=== PATIENT | male | born 1950 | race Caucasian/White ===

== ENCOUNTER → 2016-11-08 | Outpatient (CLI) | payer BC ==
[~2016-11-08] MED LIST: ASPI-390 PO; ATOR-22 PO; ATOR-24 PO; BUPR-79 PO; CYAN500T13 PO; ERGO500037 PO; FLUO40CA8 PO; GLIM4TAB PO; INSDGI SC; LEVO100T7 PO; LOSA100T26 PO; METF-384 PO; METF850T9 PO; NVLG SC; NVLGI7030 SC; PRAM1TAB PO; PROC1TAB5 PO
[2016-11-08 18:17] LABS: HEMATOCRIT 33.3 % (42-52)
[2016-11-08 18:18] LABS: CHOLESTEROL/HDL RATIO 4.4; THYROID STIMULATING HORMONE 2.12 uIu/ml (0.300-4.500)
[2016-11-08 18:23] LABS: RATIO 39.2 mcg/mg (0-30.0)
[2016-11-09 06:13] LABS: ESTIMATED AVERAGE GLUCOSE 140 mg/dl; HA1C FLAG Normal (Normal)
== END | disposition home or self-care (01) ==
LOC: C.LABMFLN 15:50
PROVIDERS: ATTEND Family Medicine
DX: E78.00 Pure hypercholesterolemia, unspecified (principal); E55.9 Vitamin D deficiency, unspecified; E11.65 Type 2 diabetes mellitus with hyperglycemia; D64.9 Anemia, unspecified

== ENCOUNTER → 2016-11-16 | Day surgery (SDC) | payer BC ==
[2016-11-10 10:08] VITALS: Ht 185.4 cm; Wt 118.2 kg
[~2016-11-16] VITALS: Ht 185.4 cm; Wt 118.2 kg
[~2016-11-16] MED LIST changes: +500ML BSS 0.3ML EPI 1:1000PF IRRIG ONE; +ACETAMINOPHEN 325 MG TAB PO PRN; +AMVISC PLUS 0.8ML SYRINGE INT OCU ONE; -ASPI-390 PO; -ATOR-24 PO; +BSS FLUSH ONE; +EpINEphrine INJ 1MG/ML AMP 1 MG/ML AMP ONE; +FENTANYL CITRATE INJ 50 MCG/1 ML 2 ML VIAL IV PRN; -GLIM4TAB PO; +LACTATED RINGER'S 1000ML 1,000 ML IV PRN; +LACTATED RINGER'S 1000ML 500 ML IV SCH; +LIDOCAINE 3.5% OPH GEL PER APPLICATION CHARGE ONE; +LIDOCAINE HCL 1% MPF 2 ML VIAL ONE; -METF850T9 PO; +MIDAZOLAM HCL 1 MG/ML 2ML VIAL ONE; +OCUCOAT 1 ML SOLN IO ONE; +ONDANSETRON INJ 2 MG/ML 2 ML VIAL IV PRN; +POVIDONE-IODINE OP SOLN 30 ML BTL ONE; -PROC1TAB5 PO; +PROPARACAINE 0.5% OP SOLN PER DROP CHARGE OPR SCH; +TOBRAMYCIN/DEXAMETHASONE OPH OINT PER APPLN CHARGE ONE
[2016-11-16] MEDS: PHENYLEPHRINE HCL 2.5% OP SOLN PER DROP CHARGE OPR SCH ×2 (06:36→06:42)
[2016-11-16] MEDS: TROPICAMIDE 1% OP SOLN PER DROP CHARGE OPR SCH ×2 (06:37→06:42)
[2016-11-16] MEDS: CYCLOPENTOLATE HCL 1% OP SOLN PER DROP CHARGE OPR SCH ×2 (06:38→06:43)
[2016-11-16] MEDS: KETOROLAC 0.5% OP SOLN PER DROP CHARGE OPR SCH ×2 (06:39→06:44)
[2016-11-16] MEDS: GATIFLOXACIN OP SOLN PER DROP CHARGE OPR SCH ×2 (06:40→06:53)
--- NOTE | 2016-11-16 07:03 | History & Physical Bridge - [place] ---
H&P Re-Evaluation Bridge Note: I have examined the patient, reviewed the History & Physical and in the interval since the performance of the History & Physical I have noted the following changes of clinical significance: Diagnosis: Right Cataract Procedure: Right Cataract Removal with Lens Implant No changes noted
[2016-11-16 07:31] VITALS: TEMP 36.8
[2016-11-16 07:46] VITALS: BP 144/79; PULSE 71; O2SAT 95
--- NOTE | 2016-11-16 07:54 | Anesthesia Progress Nt - [facility] ---
Anesthesia Post Op Note Date & Time Nov 16, 2016 at 07:54 Vital Signs Pain Intensity: 0 Vital Signs Past 12 Hours Date Time Temp Pulse Resp B/P Pulse Ox O2 Delivery O2 Flow Rate FiO2 11/16/16 07:46 71 16 144/79 95 Room Air 11/16/16 07:31 36.8 78 16 152/83 99 Room Air 11/16/16 06:29 36.9 71 18 157/89 99 Room Air Notes Mental Status: alert / awake / arousable, participated in evaluation Nausea / Vomiting: adequately controlled Pain: adequately controlled Airway Patency, RR, SpO2: stable & adequate BP & HR: stable & adequate Hydration State: stable & adequate Anesthetic Complications: no major complications apparent Pt doing well.
--- NOTE | 2016-11-16 07:55 | Discharge Instructions-SurgCtr ---
Discharge Instructions Visit Reason for Visit: Cataract Right Eye Discharge Discharge Diagnosis / Problem: cataract Discharge Goals Goal(s): Improve function Medications Stopped Medications Name(s): Metformin stopped Tuesday Activity Recommendations Activity Limitations: per Instructions/Follow-up section ACTIVITY RECOMMENDATIONS: * No strenuous lifting, jogging or running for 4 days * No swimming or yard work for 1 week. * Limited bending is permitted, such as putting on shoes. RETURN TO SCHOOL/WORK: No work until seen by physician in office. MEDICATIONS: Resume previous medications unless instructed otherwise by your surgeon. This includes eye drops for glaucoma. Zymaxid/Gatifloxacin (young cap) - one drop every 2 hours until bedtime Nevanac/Ilevro/Prolensa/Ketorolac (choi cap) - one drop every 4 hours until bedtime Prednisolone (white/pink cap, SHAKE WELL) - one drop every 2 hours until bedtime Starting tomorrow - all 3 drops every 4 hours until seen in the office Optive drops - as needed for discomfort SPECIAL CARE INSTRUCTIONS: * Wear eyeshield when sleeping, for four nights. * You may wear your own glasses or sunglasses while awake. * You may read or watch TV * You may shower and wash your face, but be gentle around the eye and pat dry. * Blurry vision and mild irritation are normal. * Call office if pain is more severe or vision becomes dark at . FOLLOW UP VISIT: Follow-up with Dr Goddard tomorrow. Anesthesia . Post Anesthesia Instructions: If you have had General Anesthesia or IV Sedation: * Do not drive today. * Resume driving when surgeon permits. * Do not make important decisions or sign legal documents today. * Call surgeon for: 1. Temperature elevations greater than 101 degrees F. 2. Uncontrollable pain. 3. Excessive bleeding. 4. Persistent nausea and vomiting. 5. Medication intolerance (nausea, vomiting or rash). * For nausea and vomiting use only clear liquids such as: tea, soda, bouillon until nausea subsides, then gradually increase diet as tolerated. * If you have any concerns or questions, call your surgeon's office. If physician is unavailable and it is an emergency, call 911 or go to the nearest emergency room. . Diet Recommendations Home Diet: resume previous diet Procedures Procedures Performed: Right Eye Cataract Phacoemulsification With Intraocular Lens Implant Pending Studies Studies pending at discharge: no Medical Emergencies . Who to Call and When: Medical Emergencies: If at any time you feel your situation is an emergency, please call 911 immediately. . Non-Emergent Contact Non-Emergency issues call your: Dye Lab Technician . . "Provider Documentation" section prepared by Armen Goddard.
--- NOTE | 2016-11-16 07:55 | [facility] Operative Report ---
Operative Report 1. PREOPERATIVE DIAGNOSIS: Cataract of the right eye. 2. POSTOPERATIVE DIAGNOSIS: Same. 3. PROCEDURE: Phacoemulsification with intraocular lens implantation of the right eye. SURGEON: Dr. Armen Goddard. ANESTHESIA: Topical Lidocaine gel, 1% Non- Preserved intracameral Lidocaine, and monitored intravenous sedation. INDICATIONS FOR THE PROCEDURE: The patient is a 66 - year-old male with a history of cataract of the right eye causing significant visual impairment. The details of the proposed procedure were explained to the patient who asked appropriate questions and following discussion of all risks, benefits and alternatives agreed to have the procedure done. 4. OPERATION AND FINDINGS: DESCRIPTION OF PROCEDURE: After informed consent was obtained, the patient was brought to the Operating Room at the [facility]. The patient was placed in a supine position and then the right eye was prepped and draped in the usual sterile fashion for intraocular surgery. A drop of topical Lidocaine gel was placed in the operative eye. A wire lid speculum was then placed in the fornices. A corneal paracentesis was then created temporally. The Non-Preserved Lidocaine was then instilled into the anterior chamber. The anterior chamber was then pressurized with viscoelastic. A 2.0 mm clear corneal incision was then created temporally. A cystotome was inserted into the anterior chamber and used to create a tear in the anterior lens capsule. This capsular tear was then used to create a small flap and the flap was dragged in a counterclockwise direction in order to create a continuous curvilinear capsulorrhexis. Hydrodissection was accomplished with balanced salt solution. Phacoemulsification of the lens nucleus was then performed in a standard [id number]-[id number] technique. The phaco time was 6 seconds with an average power of 12 %. The remaining cortical material was removed using irrigation aspiration. The capsular bag was then filled with viscoelastic. A Bausch [employer] Lomb MX60 +19.0 diopters lens was then loaded into the injector and injected into the capsular bag. The remaining viscoelastic was removed with the irrigation aspiration handpiece. The wound was hydrated and then checked and found to be watertight. The intraocular pressure was checked and found to be adequate. The wire lid speculum was removed and the patient's face was cleaned and dried. TobraDex ointment was placed in the inferior fornix. The patient was discharged to the Recovery Room having tolerated the procedure well. There were no complications. The patient will be seen tomorrow in the office for follow-up. I attest to the content of the Intraoperative Record and any orders documented therein. Any exceptions are noted below.
== END | disposition home or self-care (01) ==
LOC: X.SURG 06:15
PROVIDERS: ATTEND Ophthalmology
DX: H26.9 Unspecified cataract (principal); H54.7 Unspecified visual loss; E53.8 Deficiency of other specified B group vitamins; D64.9 Anemia, unspecified; I10 Essential (primary) hypertension; F41.9 Anxiety disorder, unspecified; M19.90 Unspecified osteoarthritis, unspecified site; G56.01 Carpal tunnel syndrome, right upper limb; F32.9 Major depressive disorder, single episode, unspecified; E11.9 Type 2 diabetes mellitus without complications; E78.00 Pure hypercholesterolemia, unspecified; M51.26 Other intervertebral disc displacement, lumbar region; E66.9 Obesity, unspecified; G25.81 Restless legs syndrome; E55.9 Vitamin D deficiency, unspecified

== ENCOUNTER → 2016-12-07 | Day surgery (SDC) | payer BC, OTHER ==
[2016-11-24 09:35] VITALS: Ht 185.4 cm; Wt 118.2 kg
[~2016-12-07] VITALS: Ht 185.4 cm; Wt 118.2 kg
[~2016-12-07] MED LIST changes: +ATROPINE SULFATE 0.1 MG/ML 5ML SYR IV PRN; +EpHEDrine SULFATE INJ 50 MG/ML AMP IV PRN; +LABETALOL HCL IV 5 MG/ML 20ML IV PRN; -LACTATED RINGER'S 1000ML 1,000 ML IV PRN; -NVLGI7030 SC; +PROPARACAINE 0.5% OP SOLN PER DROP CHARGE OPL SCH; -PROPARACAINE 0.5% OP SOLN PER DROP CHARGE OPR SCH
[2016-12-07] MEDS: PHENYLEPHRINE HCL 2.5% OP SOLN PER DROP CHARGE OPL SCH ×2 (06:32→06:37)
[2016-12-07] MEDS: TROPICAMIDE 1% OP SOLN PER DROP CHARGE OPL SCH ×2 (06:33→06:38)
[2016-12-07] MEDS: CYCLOPENTOLATE HCL 1% OP SOLN PER DROP CHARGE OPL SCH ×2 (06:34→06:39)
[2016-12-07] MEDS: KETOROLAC 0.5% OP SOLN PER DROP CHARGE OPL SCH ×2 (06:35→06:40)
[2016-12-07] MEDS: GATIFLOXACIN OP SOLN PER DROP CHARGE OPL SCH ×2 (06:36→06:46)
--- NOTE | 2016-12-07 06:59 | History & Physical Bridge - [place] ---
H&P Re-Evaluation Bridge Note: I have examined the patient, reviewed the History & Physical and in the interval since the performance of the History & Physical I have noted the following changes of clinical significance: Diagnosis: Left Cataract Procedure: Left Cataract Removal with Lens Implant No changes noted
[2016-12-07 07:23] VITALS: TEMP 36.8
--- NOTE | 2016-12-07 07:23 | [facility] Operative Report ---
Operative Report 1. PREOPERATIVE DIAGNOSIS: Cataract of the left eye. 2. POSTOPERATIVE DIAGNOSIS: Same. 3. PROCEDURE: Phacoemulsification with intraocular lens implantation of the left eye. SURGEON: Dr. Armen Goddard. ANESTHESIA: Topical Lidocaine gel, 1% Non- Preserved intracameral Lidocaine, and monitored intravenous sedation. INDICATIONS FOR THE PROCEDURE: The patient is a 66 - year-old male with a history of cataract of the left eye causing significant visual impairment. The details of the proposed procedure were explained to the patient who asked appropriate questions and following discussion of all risks, benefits and alternatives agreed to have the procedure done. 4. OPERATION AND FINDINGS: DESCRIPTION OF PROCEDURE: After informed consent was obtained, the patient was brought to the Operating Room at the [facility]. The patient was placed in a supine position and then the left eye was prepped and draped in the usual sterile fashion for intraocular surgery. A drop of topical Lidocaine gel was placed in the operative eye. A wire lid speculum was then placed in the fornices. A corneal paracentesis was then created temporally. The Non-Preserved Lidocaine was then instilled into the anterior chamber. The anterior chamber was then pressurized with viscoelastic. A 2.0 mm clear corneal incision was then created temporally. A cystotome was inserted into the anterior chamber and used to create a tear in the anterior lens capsule. This capsular tear was then used to create a small flap and the flap was dragged in a counterclockwise direction in order to create a continuous curvilinear capsulorrhexis. Hydrodissection was accomplished with balanced salt solution. Phacoemulsification of the lens nucleus was then performed in a standard bujzkr-[id number]-drecpnq technique. The phaco time was 35 seconds with an average power of 16 %. The remaining cortical material was removed using irrigation aspiration. The capsular bag was then filled with viscoelastic. A Bausch & Lomb MX60 +20.0 diopters lens was then loaded into the injector and injected into the capsular bag. The remaining viscoelastic was removed with the irrigation aspiration handpiece. The wound was hydrated and then checked and found to be watertight. The intraocular pressure was checked and found to be adequate. The wire lid speculum was removed and the patient's face was cleaned and dried. TobraDex ointment was placed in the inferior fornix. The patient was discharged to the Recovery Room having tolerated the procedure well. There were no complications. The patient will be seen tomorrow in the office for follow-up. I attest to the content of the Intraoperative Record and any orders documented therein. Any exceptions are noted below.
--- NOTE | 2016-12-07 07:23 | Discharge Instructions-SurgCtr ---
Discharge Instructions Visit Reason for Visit: Cataract Left Eye Discharge Discharge Diagnosis / Problem: cataract Discharge Goals Goal(s): Improve function Medications Stopped Medications Name(s): Metformin. Last dose 12/04/16 Activity Recommendations Activity Limitations: per Instructions/Follow-up section Anesthesia . Post Anesthesia Instructions: If you have had General Anesthesia or IV Sedation: * Do not drive today. * Resume driving when surgeon permits. * Do not make important decisions or sign legal documents today. * Call surgeon for: 1. Temperature elevations greater than 101 degrees F. 2. Uncontrollable pain. 3. Excessive bleeding. 4. Persistent nausea and vomiting. 5. Medication intolerance (nausea, vomiting or rash). * For nausea and vomiting use only clear liquids such as: tea, soda, bouillon until nausea subsides, then gradually increase diet as tolerated. * If you have any concerns or questions, call your surgeon's office. If physician is unavailable and it is an emergency, call 911 or go to the nearest emergency room. . Instructions / Follow-Up Instructions / Follow-Up ACTIVITY RECOMMENDATIONS: * No strenuous lifting, jogging or running for 4 days * No swimming or yard work for 1 week. * Limited bending is permitted, such as putting on shoes. RETURN TO SCHOOL/WORK: No work until seen by physician in office. MEDICATIONS: Resume previous medications unless instructed otherwise by your surgeon. This includes eye drops for glaucoma. Zymaxid/Gatifloxacin (young cap) - one drop every 2 hours until bedtime Nevanac/Ilevro/Prolensa/Ketorolac (choi cap) - one drop every 4 hours until bedtime Prednisolone (white/pink cap, SHAKE WELL) - one drop every 2 hours until bedtime Starting tomorrow - all 3 drops every 4 hours until seen in the office Optive drops - as needed for discomfort SPECIAL CARE INSTRUCTIONS: * Wear eyeshield when sleeping, for four nights. * You may wear your own glasses or sunglasses while awake. * You may read or watch TV * You may shower and wash your face, but be gentle around the eye and pat dry. * Blurry vision and mild irritation are normal. * Call office if pain is more severe or vision becomes dark at . FOLLOW UP VISIT: Follow-up with Dr Goddard tomorrow. Diet Recommendations Home Diet: resume previous diet Procedures Procedures Performed: Left Cataract Phacoemulsification With Intraocular Lens Implant Pending Studies Studies pending at discharge: no Medical Emergencies . Who to Call and When: Medical Emergencies: If at any time you feel your situation is an emergency, please call 911 immediately. . Non-Emergent Contact Non-Emergency issues call your: Small Craft Operator . . "Provider Documentation" section prepared by Armen Goddard.
--- NOTE | 2016-12-07 07:36 | Anesthesiology Progress Note ---
Anesthesia Post Op Note Date & Time Dec 07, 2016 at 07:36 Vital Signs Pain Intensity: 0 Vital Signs Past 12 Hours Date Time Temp Pulse Resp B/P Pulse Ox O2 Delivery O2 Flow Rate FiO2 12/07/16 07:23 36.8 64 20 132/73 97 Room Air 12/07/16 06:26 36.8 62 18 177/91 98 Room Air Notes Mental Status: alert / awake / arousable, participated in evaluation Pt Amnestic to Procedure: Yes Nausea / Vomiting: adequately controlled Pain: adequately controlled Airway Patency, RR, SpO2: stable & adequate BP & HR: stable & adequate Hydration State: stable & adequate Anesthetic Complications: no major complications apparent
[2016-12-07 07:40] VITALS: BP 132/78; PULSE 58; O2SAT 99
== END | disposition home or self-care (01) ==
LOC: X.SURG 06:07
PROVIDERS: ATTEND Ophthalmology
DX: H26.9 Unspecified cataract (principal); H54.7 Unspecified visual loss; I10 Essential (primary) hypertension; D64.9 Anemia, unspecified; F41.9 Anxiety disorder, unspecified; M19.90 Unspecified osteoarthritis, unspecified site; M51.26 Other intervertebral disc displacement, lumbar region; E53.8 Deficiency of other specified B group vitamins; E55.9 Vitamin D deficiency, unspecified; F32.9 Major depressive disorder, single episode, unspecified; E11.9 Type 2 diabetes mellitus without complications; E66.9 Obesity, unspecified

== ENCOUNTER → 2016-12-29 | Outpatient (CLI) | payer BC ==
[~2016-12-29] MED LIST changes: -500ML BSS 0.3ML EPI 1:1000PF IRRIG ONE; -ACETAMINOPHEN 325 MG TAB PO PRN; -AMVISC PLUS 0.8ML SYRINGE INT OCU ONE; -ATROPINE SULFATE 0.1 MG/ML 5ML SYR IV PRN; -BSS FLUSH ONE; -EpHEDrine SULFATE INJ 50 MG/ML AMP IV PRN; -EpINEphrine INJ 1MG/ML AMP 1 MG/ML AMP ONE; -FENTANYL CITRATE INJ 50 MCG/1 ML 2 ML VIAL IV PRN; -LABETALOL HCL IV 5 MG/ML 20ML IV PRN; -LACTATED RINGER'S 1000ML 500 ML IV SCH; -LIDOCAINE 3.5% OPH GEL PER APPLICATION CHARGE ONE; -LIDOCAINE HCL 1% MPF 2 ML VIAL ONE; -MIDAZOLAM HCL 1 MG/ML 2ML VIAL ONE; -OCUCOAT 1 ML SOLN IO ONE; -ONDANSETRON INJ 2 MG/ML 2 ML VIAL IV PRN; -POVIDONE-IODINE OP SOLN 30 ML BTL ONE; -PROPARACAINE 0.5% OP SOLN PER DROP CHARGE OPL SCH; -TOBRAMYCIN/DEXAMETHASONE OPH OINT PER APPLN CHARGE ONE
[2016-12-29 15:32] LABS: URINE APPEARANCE CLEAR (CLEAR); URINE BILIRUBIN NEG (NEG); URINE COLOR YELLOW; URINE EPITHELIAL CELL AUTO 0-5 /lpf (0-5); URINE NITRITE NEG (NEG); URINE SPECIFIC GRAVITY 1.009 (1.000-1.030); UROBILINOGEN NEG (NEG)
[2016-12-29 15:52] LABS: MANUAL MICROSCOPIC REQUIRED? NO; REVIEW REQ? NO; SULFASALICYLIC ACID NEG (NEG)
[2016-12-29 15:59] LABS: BLOOD UREA NITROGEN 22 mg/dl (7-18); BUN/CREATININE RATIO 12.4 (10-20); C-REACTIVE PROTEIN 0.73 mg/dl (0-0.29); CALCIUM 8.8 mg/dl (8.5-10.1); CARBON DIOXIDE 27 mmol/L (21-32); CHLORIDE 104 mmol/L (98-107); GLUCOSE 143 mg/dl (70-99); POTASSIUM 3.6 mmol/L (3.5-5.1); SODIUM 140 mmol/L (136-145); URIC ACID 4.2 mg/dl (2.6-7.2); URINE PROTIEN/CREAT RATIO 0.8 (0-0.2); URINE TOTAL PROTEIN 30.3 mg/dl (0-11.9)
[2017-01-05 21:36] LABS: ALBUMIN 3.6 G/DL (3.8-4.8); ALBUMIN % 22.98 %; ALPHA-2-GLOBULIN % 13.67 %; BETA GLOBULIN % 20.05 %; CREATININE UR 48 MG/DL (20-370); FREE KAPPA 239.7 MG/L (3.3-19.4); FREE KAPPA/LAMBDA RATIO 3.47 (0.26-1.65); FREE LAMBDA 69.1 MG/L (5.7-26.3); TOTAL PROTEIN 7.5 G/DL (6.2-8.3)
== END | disposition home or self-care (01) ==
LOC: C.LAB1850 14:09
PROVIDERS: ATTEND Internal Medicine Nephrology
DX: N17.9 Acute kidney failure, unspecified (principal)

== ENCOUNTER → 2017-01-17 | Outpatient (CLI) | payer BC ==
[2017-01-17 07:50] LABS: PATIENT HEIGHT 68.6 cm
[2017-01-17 13:44] LABS: BLOOD UREA NITROGEN 24 mg/dl (7-18); BUN/CREATININE RATIO 14.8 (10-20); CALCIUM 9.2 mg/dl (8.5-10.1); CARBON DIOXIDE 26 mmol/L (21-32); CHLORIDE 106 mmol/L (98-107); GLUCOSE 129 mg/dl (70-99); POTASSIUM 3.3 mmol/L (3.5-5.1); SODIUM 140 mmol/L (136-145)
[2017-01-17 13:46] LABS: PHOSPHORUS 3.6 mg/dl (2.5-4.9)
[2017-01-17 13:52] LABS: ESTIMATED AVERAGE GLUCOSE 151 mg/dl; HA1C FLAG Normal (Normal)
[2017-01-17 13:53] LABS: BASO % 0.6 %; BASO ABS # 0.04 K/uL (0-0.2); COMPLETE YES; EOS % 5.1 %; HEMATOCRIT 33.4 % (42-52); IG% 0.3 %; LYMPH % 14.2 %; LYMPH ABS # 0.89 K/uL (1.2-3.4); MEAN CORPUSCULAR HEMOGLOBIN 28.2 pg (25-34); MEAN CORPUSCULAR HGB CONC 33.2 g/dl (32-36); MEAN PLATELET VOLUME 9.6 fL (7.4-10.4); MONO % 8.1 %; NEUT % 71.7 %; PLATELET COUNT 131 K/uL (130-400); RED BLOOD COUNT 3.93 M/uL (4.7-6.1); WHITE BLOOD COUNT 6.27 K/uL (4.8-10.8)
[2017-01-17 14:06] LABS: URINE TOTAL PROTEIN 41.4 mg/dl (0-11.9)
[2017-01-17 14:17] LABS: URINE TOTAL PROTEIN CALC 1117.8 mg/24 hr (0-149.1)
[2017-01-17 14:18] LABS: CREATININE 1.6 mg/dl (0.6-1.4)
[2017-01-20 03:52] LABS: ANTI-CENTROMERE AB <1.0 NEG AI (<1.0 NEG)
[2017-01-21 13:32] LABS: IGG SERUM 2790 H
== END | disposition home or self-care (01) ==
LOC: C.LABMFLN 07:44
PROVIDERS: ATTEND Internal Medicine Nephrology
DX: N17.9 Acute kidney failure, unspecified (principal); E11.9 Type 2 diabetes mellitus without complications

== ENCOUNTER → 2017-01-24 | Outpatient (CLI) | payer BC ==
[2017-01-24 17:52] LABS: URINE APPEARANCE CLEAR (CLEAR); URINE BILIRUBIN NEG (NEG); URINE COLOR YELLOW; URINE NITRITE NEG (NEG); URINE SPECIFIC GRAVITY 1.014 (1.000-1.030); UROBILINOGEN NEG (NEG)
[2017-01-24 17:53] LABS: BLOOD UREA NITROGEN 21 mg/dl (7-18); BUN/CREATININE RATIO 12.2 (10-20); CALCIUM 9.4 mg/dl (8.5-10.1); CARBON DIOXIDE 27 mmol/L (21-32); CHLORIDE 104 mmol/L (98-107); GLUCOSE 132 mg/dl (70-99); POTASSIUM 3.9 mmol/L (3.5-5.1); SODIUM 138 mmol/L (136-145)
[2017-01-24 18:00] LABS: MANUAL MICROSCOPIC REQUIRED? NO; REVIEW REQ? NO
[2017-01-24 18:04] LABS: URINE PROTIEN/CREAT RATIO 0.6 (0-0.2); URINE TOTAL PROTEIN 57.4 mg/dl (0-11.9)
== END | disposition home or self-care (01) ==
LOC: C.LABMFLN 14:51
PROVIDERS: ATTEND Internal Medicine Nephrology
DX: N17.9 Acute kidney failure, unspecified (principal)

== ENCOUNTER → 2017-01-27 | Outpatient (CLI) | payer BC ==
[~2017-01-27] MED LIST changes: -LOSA100T26 PO; +LOSA100T33 PO
== END | disposition home or self-care (01) ==
LOC: C.LABMFLN 07:40
PROVIDERS: ATTEND Internal Medicine Nephrology
DX: N28.9 Disorder of kidney and ureter, unspecified (principal); R79.9 Abnormal finding of blood chemistry, unspecified

== ENCOUNTER → 2017-01-28 | Outpatient (CLI) | payer BC ==
[2017-01-28 18:06] LABS: HEMATOCRIT 33.4 % (42-52); MEAN CELL VOLUME 84.3 fL (80-100); MEAN CORPUSCULAR HEMOGLOBIN 28.5 pg (25-34); MEAN CORPUSCULAR HGB CONC 33.8 g/dl (32-36); RED BLOOD COUNT 3.96 M/uL (4.7-6.1); WHITE BLOOD COUNT 5.82 K/uL (4.8-10.8)
[2017-01-28 18:47] LABS: MEAN PLATELET VOLUME 11.2 fL (7.4-10.4); PLATELET COUNT 49 K/uL (130-400)
[2017-01-28 18:50] LABS: ANISOCYTOSIS PRESENT; BASO % 0.9 %; BASO ABS # 0.05 K/uL (0-0.2); COMPLETE YES; EOS % 4.5 %; IG% 0.7 %; LYMPH % 18.6 %; LYMPH ABS # 1.08 K/uL (1.2-3.4); NEUT % 64.3 %; PLT ESTIMATE DECREASED
== END | disposition home or self-care (01) ==
LOC: C.LABMFLN 11:45
PROVIDERS: ATTEND Internal Medicine Nephrology
DX: D69.6 Thrombocytopenia, unspecified (principal)

== ENCOUNTER → 2017-03-08 | Outpatient (CLI) | payer BC ==
[2017-03-08 17:56] LABS: BASO % 0.5 %; BASO ABS # 0.03 K/uL (0-0.2); COMPLETE YES; HEMATOCRIT 34.1 % (42-52); IG% 0.3 %; LYMPH % 18.4 %; MEAN CELL VOLUME 86.8 fL (80-100); MEAN CORPUSCULAR HGB CONC 33.4 g/dl (32-36); MEAN PLATELET VOLUME 9.2 fL (7.4-10.4); MONO % 9.2 %; NEUT % 66.6 %; PLATELET COUNT 167 K/uL (130-400); RED BLOOD COUNT 3.93 M/uL (4.7-6.1); WHITE BLOOD COUNT 5.97 K/uL (4.8-10.8)
== END | disposition home or self-care (01) ==
LOC: C.LABMFLN 11:08
PROVIDERS: ATTEND Internal Medicine Hematology & Oncology
DX: D64.9 Anemia, unspecified (principal)

== ENCOUNTER → 2017-03-21 | Outpatient (CLI) | payer BC ==
[2017-03-21 13:11] LABS: URINE APPEARANCE CLEAR (CLEAR); URINE BILIRUBIN NEG (NEG); URINE COLOR YELLOW; URINE NITRITE NEG (NEG); URINE SPECIFIC GRAVITY 1.014 (1.000-1.030); UROBILINOGEN NEG (NEG)
[2017-03-21 13:20] LABS: HEMATOCRIT 35.4 % (42-52); MEAN CELL VOLUME 87.2 fL (80-100); MEAN CORPUSCULAR HEMOGLOBIN 29.6 pg (25-34); MEAN CORPUSCULAR HGB CONC 33.9 g/dl (32-36); MEAN PLATELET VOLUME 9.2 fL (7.4-10.4); PLATELET COUNT 161 K/uL (130-400); RED BLOOD COUNT 4.06 M/uL (4.7-6.1); WHITE BLOOD COUNT 6.86 K/uL (4.8-10.8)
[2017-03-21 13:26] LABS: MANUAL MICROSCOPIC REQUIRED? NO; REVIEW REQ? NO
[2017-03-21 13:53] LABS: URINE PROTIEN/CREAT RATIO 0.7 (0-0.2); URINE TOTAL PROTEIN 60.3 mg/dl (0-11.9)
[2017-03-21 14:27] LABS: BLOOD UREA NITROGEN 23 mg/dl (7-18); BUN/CREATININE RATIO 13.3 (10-20); CALCIUM 9.1 mg/dl (8.5-10.1); CARBON DIOXIDE 27 mmol/L (21-32); CHLORIDE 105 mmol/L (98-107); GLUCOSE 118 mg/dl (70-99); PHOSPHORUS 3.3 mg/dl (2.5-4.9); POTASSIUM 3.3 mmol/L (3.5-5.1); SODIUM 141 mmol/L (136-145)
[2017-03-22 15:38] LABS: ALBUMIN % 14.04 %; BETA GLOBULIN % 24.55 %; CREATININE UR 89 MG/DL (20-370); GAMMA GLOBULIN % 44.91 %
== END | disposition home or self-care (01) ==
LOC: C.LABMFLN 08:24
PROVIDERS: ATTEND Internal Medicine Nephrology
DX: D64.9 Anemia, unspecified (principal); N17.9 Acute kidney failure, unspecified

== ENCOUNTER → 2017-05-09 | Outpatient (CLI) | payer BC ==
[~2017-05-09] MED LIST changes: +LOSA100T26 PO; -LOSA100T33 PO
[2017-05-09 13:37] LABS: HEMATOCRIT 33.5 % (42-52); MEAN CELL VOLUME 87.9 fL (80-100); MEAN CORPUSCULAR HEMOGLOBIN 28.3 pg (25-34); MEAN CORPUSCULAR HGB CONC 32.2 g/dl (32-36); MEAN PLATELET VOLUME 9.1 fL (7.4-10.4); PLATELET COUNT 198 K/uL (130-400); RED BLOOD COUNT 3.81 M/uL (4.7-6.1); WHITE BLOOD COUNT 6.14 K/uL (4.8-10.8)
[2017-05-09 13:44] LABS: URINE PROTIEN/CREAT RATIO 0.8 (0-0.2); URINE TOTAL PROTEIN 59.2 mg/dl (0-11.9)
[2017-05-09 13:53] LABS: BLOOD UREA NITROGEN 26 mg/dl (7-18); BUN/CREATININE RATIO 15.2 (10-20); C-REACTIVE PROTEIN 1.25 mg/dl (0-0.29); CALCIUM 9.2 mg/dl (8.5-10.1); CARBON DIOXIDE 26 mmol/L (21-32); CHLORIDE 104 mmol/L (98-107); PHOSPHORUS 3.9 mg/dl (2.5-4.9); POTASSIUM 3.6 mmol/L (3.5-5.1); SODIUM 138 mmol/L (136-145)
[2017-05-09 13:54] LABS: GLUCOSE 126 mg/dl (70-99)
[2017-05-09 14:11] LABS: URINE APPEARANCE CLEAR (CLEAR); URINE BILIRUBIN NEG (NEG); URINE COLOR YELLOW; URINE NITRITE NEG (NEG); URINE PH 5.5 (4.5-7.5); URINE SPECIFIC GRAVITY 1.015 (1.000-1.030); UROBILINOGEN NEG (NEG)
[2017-05-09 14:18] LABS: MANUAL MICROSCOPIC REQUIRED? NO; REVIEW REQ? NO
== END | disposition home or self-care (01) ==
LOC: C.LABMFLN 07:31
PROVIDERS: ATTEND Internal Medicine Nephrology
DX: N18.3 Chronic kidney disease, stage 3 (moderate) (principal); R80.9 Proteinuria, unspecified

== ENCOUNTER → 2017-06-22 | Outpatient (CLI) | payer BC, MEDICARE ==
[2017-06-22 13:45] LABS: THYROID STIMULATING HORMONE 2.02 uIu/ml (0.300-4.500)
[2017-06-22 13:49] LABS: ESTIMATED AVERAGE GLUCOSE 137 mg/dl; HA1C FLAG Normal (Normal)
== END | disposition home or self-care (01) ==
LOC: C.LABMFLN 10:22
PROVIDERS: ATTEND Physician Assistant
DX: E11.9 Type 2 diabetes mellitus without complications (principal); E55.9 Vitamin D deficiency, unspecified; E03.9 Hypothyroidism, unspecified

== ENCOUNTER → 2017-10-04 | Outpatient (CLI) | payer MEDICARE ==
[~2017-10-04] MED LIST changes: -LOSA100T26 PO; +LOSA100T33 PO
[2017-10-04 13:19] LABS: ESTIMATED AVERAGE GLUCOSE 148 mg/dl; HA1C FLAG Normal (Normal)
[2017-10-04 13:20] LABS: CHOLESTEROL/HDL RATIO 3.7; THYROID STIMULATING HORMONE 2.37 uIu/ml (0.300-4.500)
== END | disposition home or self-care (01) ==
LOC: C.LABMFLN 08:53
PROVIDERS: ATTEND Physician Assistant
DX: E78.5 Hyperlipidemia, unspecified (principal); E11.9 Type 2 diabetes mellitus without complications; E03.9 Hypothyroidism, unspecified

== ENCOUNTER → 2017-11-25 | Outpatient (CLI) | payer MEDICARE ==
[2017-11-25 12:38] LABS: HEMATOCRIT 34.3 % (42-52); HEMOGLOBIN 11.5 g/dL (14.0-18.0); MEAN CELL VOLUME 88.9 fL (80-100); MEAN CORPUSCULAR HEMOGLOBIN 29.8 pg (25-34); MEAN CORPUSCULAR HGB CONC 33.5 g/dl (32-36); MEAN PLATELET VOLUME 9.1 fL (7.4-10.4); PLATELET COUNT 230 K/uL (130-400); RED CELL DISTRIBUTION WIDTH CV 15.2 % (11.5-14.5); WHITE BLOOD COUNT 5.56 K/uL (4.8-10.8)
[2017-11-25 13:31] LABS: ALBUMIN 3.2 gm/dl (3.4-5.0); BLOOD UREA NITROGEN 30 mg/dl (7-18); CALCIUM 9.6 mg/dl (8.5-10.1); CARBON DIOXIDE 26 mmol/L (21-32); CREATININE 1.93 mg/dl (0.60-1.40); GLUCOSE 120 mg/dl (70-99); POTASSIUM 3.5 mmol/L (3.5-5.1); SODIUM 137 mmol/L (136-145)
[2017-11-25 13:32] LABS: PHOSPHORUS 3.6 mg/dl (2.5-4.9)
== END | disposition home or self-care (01) ==
LOC: C.LABMFLN 06:59
PROVIDERS: ATTEND Internal Medicine Nephrology
DX: N18.3 Chronic kidney disease, stage 3 (moderate) (principal)

== ENCOUNTER → 2018-01-10 | Outpatient (CLI) | payer MEDICARE ==
[2018-01-10 12:28] LABS: BASO % 0.1 %; BASO ABS # 0.01 K/uL (0-0.2); EOS % 0.1 %; EOS ABS # 0.01 K/uL (0-0.5); HEMOGLOBIN 14.5 g/dL (14.0-18.0); IG# 0.11 K/uL (0.00-0.02); LYMPH ABS # 0.83 K/uL (1.2-3.4); MEAN CELL VOLUME 87.9 fL (80-100); MEAN CORPUSCULAR HEMOGLOBIN 30.3 pg (25-34); MEAN CORPUSCULAR HGB CONC 34.5 g/dl (32-36); MEAN PLATELET VOLUME 9.5 fL (7.4-10.4); MONO % 2.4 %; MONO ABS # 0.22 K/uL (0.11-0.59); NEUT % 87.2 %; NEUT ABS # 8.01 K/uL (1.4-6.5); PLATELET COUNT 247 K/uL (130-400); RED CELL DISTRIBUTION WIDTH CV 14.2 % (11.5-14.5); RED CELL DISTRIBUTION WIDTH SD 45.8 fL (36.4-46.3); WHITE BLOOD COUNT 9.19 K/uL (4.8-10.8)
[2018-01-10 13:20] LABS: ALKALINE PHOSPHATASE 146 U/L (45-117); ALT/SGPT 20 U/L (12-78); AST/SGOT 8 U/L (15-37); BLOOD UREA NITROGEN 40 mg/dl (7-18); CALCIUM 10.1 mg/dl (8.5-10.1); CARBON DIOXIDE 30 mmol/L (21-32); CREATININE 1.85 mg/dl (0.60-1.40); GLUCOSE 395 mg/dl (70-99); POTASSIUM 4.7 mmol/L (3.5-5.1); SODIUM 129 mmol/L (136-145); TOTAL PROTEIN 7.9 gm/dl (6.4-8.2)
== END | disposition home or self-care (01) ==
LOC: C.LABMFLN 07:04
PROVIDERS: ATTEND Internal Medicine Hematology & Oncology
DX: D64.9 Anemia, unspecified (principal)

== ENCOUNTER → 2018-01-24 | Outpatient (CLI) | payer MEDICARE ==
[2018-01-24 12:28] LABS: BASO % 0.3 %; BASO ABS # 0.02 K/uL (0-0.2); EOS % 3.4 %; EOS ABS # 0.26 K/uL (0-0.5); HEMATOCRIT 39.5 % (42-52); HEMOGLOBIN 13.6 g/dL (14.0-18.0); IG# 0.11 K/uL (0.00-0.02); LYMPH % 21.8 %; LYMPH ABS # 1.65 K/uL (1.2-3.4); MEAN CELL VOLUME 88.8 fL (80-100); MEAN CORPUSCULAR HEMOGLOBIN 30.6 pg (25-34); MEAN CORPUSCULAR HGB CONC 34.4 g/dl (32-36); MEAN PLATELET VOLUME 9.4 fL (7.4-10.4); MONO % 5.3 %; NEUT % 67.7 %; NEUT ABS # 5.13 K/uL (1.4-6.5); PLATELET COUNT 158 K/uL (130-400); RED CELL DISTRIBUTION WIDTH CV 13.9 % (11.5-14.5); RED CELL DISTRIBUTION WIDTH SD 45.2 fL (36.4-46.3); WHITE BLOOD COUNT 7.57 K/uL (4.8-10.8)
[2018-01-24 13:46] LABS: ALBUMIN 3.3 gm/dl (3.4-5.0); BLOOD UREA NITROGEN 24 mg/dl (7-18); CALCIUM 9.4 mg/dl (8.5-10.1); CARBON DIOXIDE 32 mmol/L (21-32); CREATININE 1.33 mg/dl (0.60-1.40); GLUCOSE 303 mg/dl (70-99); PHOSPHORUS 2.5 mg/dl (2.5-4.9); POTASSIUM 3.4 mmol/L (3.5-5.1); SODIUM 134 mmol/L (136-145)
== END | disposition home or self-care (01) ==
LOC: C.LABMFLN 06:59
PROVIDERS: ATTEND Internal Medicine Nephrology
DX: Z12.5 Encounter for screening for malignant neoplasm of prostate (principal); N17.9 Acute kidney failure, unspecified; E55.9 Vitamin D deficiency, unspecified

== ENCOUNTER → 2018-01-26 | Outpatient (CLI) | payer MEDICARE ==
[2018-01-26 13:48] LABS: HEMOGLOBIN A1C 10.4 % (4.5-5.6)
== END | disposition home or self-care (01) ==
LOC: C.LABMFLN 07:01
PROVIDERS: ATTEND Family Medicine
DX: N17.9 Acute kidney failure, unspecified (principal); E11.9 Type 2 diabetes mellitus without complications

== ENCOUNTER → 2018-05-18 | Outpatient (CLI) | payer MEDICARE ==
[2018-05-18 13:16] LABS: HEMATOCRIT 38.5 % (42-52); HEMOGLOBIN 12.6 g/dL (14.0-18.0); MEAN CELL VOLUME 90.2 fL (80-100); MEAN CORPUSCULAR HEMOGLOBIN 29.5 pg (25-34); MEAN CORPUSCULAR HGB CONC 32.7 g/dl (32-36); MEAN PLATELET VOLUME 9.2 fL (7.4-10.4); PLATELET COUNT 226 K/uL (130-400); RED CELL DISTRIBUTION WIDTH SD 45.8 fL (36.4-46.3); WHITE BLOOD COUNT 5.29 K/uL (4.8-10.8)
[2018-05-18 13:57] LABS: ALBUMIN 3.8 gm/dl (3.4-5.0); BLOOD UREA NITROGEN 31 mg/dl (7-18); CALCIUM 9.7 mg/dl (8.5-10.1); CARBON DIOXIDE 28 mmol/L (21-32); CREATININE 1.38 mg/dl (0.60-1.40); GLUCOSE 138 mg/dl (70-99); PHOSPHORUS 3.5 mg/dl (2.5-4.9); POTASSIUM 3.6 mmol/L (3.5-5.1); SODIUM 138 mmol/L (136-145)
== END | disposition home or self-care (01) ==
LOC: C.LABMFLN 07:12
PROVIDERS: ATTEND Internal Medicine Nephrology
DX: N17.9 Acute kidney failure, unspecified (principal)

== ENCOUNTER 2021-06-08 14:41 | Inpatient (IN) ==
[2021-06-08 17:23] LABS: Appearance Urine Clear (Clear); Bacteria Urine Automated Negative (Negative); Bilirubin Urine Negative (Negative); Blood Urine Trace (Negative); Cast Urine Automated 0 /lpf (0-5); Color Urine Yellow; Glucose Urine UA Negative (Negative); Ketones Urine Negative (Negative); Leukocyte Esterase Urine Negative (Negative); Nitrite Urine Negative (Negative); Protein Urine Negative (Negative); Specific Gravity Urine 1.018 (1.000-1.030); Urobilinogen Urine Negative (Negative)
[2021-06-08 17:31] LABS: Albumin Level 3.6 gm/dl (3.4-5.0); BUN Creatinine Ratio 22.3 (10-20); Calcium 9.3 mg/dl (8.5-10.1); Creatinine Clr Calc Pharmacy 98.4 ml/min; Est GFR (Non-African American) 85.4 ml/min; Potassium 4.4 mmol/L (3.5-5.1)
[2021-06-08 17:34] LABS: Bilirubin,Total 1.1 mg/dl (0.2-1); Globulin 3.7 gm/dl (2.5-4.0); Total Protein 7.3 gm/dl (6.4-8.2)
[2021-06-08 17:44] LABS: Hematocrit (blood only) 39.8 % (42-52); Hemoglobin 13.4 g/dL (14.0-18.0); Mean Corpuscular Hemoglobin 29.6 pg (25-34); Mean Corpuscular Hgb Conc 33.7 g/dL (32-36); Mean Corpuscular Volume 88.1 fL (80-100); Platelet Count 1 K/uL (130-400); RDW Coefficient of Variation 14.1 % (11.5-14.5); RDW Standard Deviation 45.5 fL (36.4-46.3); Red Blood Count 4.52 M/uL (4.7-6.1); White Blood Count 6.06 K/uL (4.8-10.8)
[2021-06-08 17:46] LABS: Basophils # (auto) 0.03 K/uL (0-0.2); Basophils % (auto) 0.5 %; Eosinophils # (auto) 0.22 K/uL (0-0.5); Eosinophils % (auto) 3.6 %; Immature Granulocytes # (auto) 0.02 K/uL (0.00-0.02); Immature Granulocytes % (auto) 0.3 %; Lymphocytes # (auto) 0.92 K/uL (1.2-3.4); Lymphocytes % (auto) 15.2 %; Monocytes # (auto) 0.67 K/uL (0.11-0.59); Monocytes % (auto) 11.1 %; Neutrophils % (auto) 69.3 %; Platelet Estimate SIGNIFIC DECREASED (Normal)
[2021-06-08] MEDS ORDERED: IMMUNE GLOBULIN (HUMAN) SOLN IV ONE (17:57)
--- NOTE | 2021-06-08 18:14 | CT Scan Report ---
HEAD CT NONCONTRAST CT DOSE: 614.27 mGy.cm HISTORY: Headache. TECHNIQUE: Multiaxial CT images of the head were performed without the use of intravenous contrast. A utomated exposure control was utilized for this study. A dose lowering technique was utilized adheri ng to the principles of ALARA. Comparison: 03/24/2019. Findings: The paranasal sinuses and mastoid air cells are clear. The calvarium and skull base are int act. There is no mass, hematoma, midline shift, acute infarct. White matter hypodensity is nonspecifi c but suggestive of microvascular ischemic change. The ventricles and sulci demonstrate mild age-rela jake involutional changes. 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 Impression: No acute intracranial abnormality. Atrophy and microvascular ischemic changes. ACT 112: Negative or not required by law. Electronically signed by: Cabrera Hammer M.D. 06/08/2021 6:13 PM
[2021-06-08 20:08] LABS: Partial Thromboplastin Time 25.4 Seconds (21.0-31.0); Prothrombin Time 10.3 Seconds (9.0-12.0)
[2021-06-08] MEDS: IMMUNE GLOBULIN(HUMAN) 10% 100 ML IV SCH ×4 (20:19→23:06)
--- NOTE | 2021-06-08 20:38 | History & Physical Report ---
Date of Service June 08, 2021 Assessment & Plan (1) Thrombocytopenia: Plan: Corbin Cueva is a 70 yo male with PMHx significant for T2DM (A1c 5.7 on 06/02/2021), CKDIII, HTN, HLD, Hypothyroidism and RLS who presents to [facility] on 06/08 for generalized purpuric rash x2 days. Thrombocytopenia; Purpuric Rash Two-day history of such, with platelets of 1K on admission, no signs of active bleeding. Suspect ITP due to underlying hematologic malignancy such as CLL or Hodgkin's lymphoma. Less likely due to tick-borne illness. - Heme/Onc consulted - appreciate recs - received IVIG 1gm/kg x1 in the ED, per recommendations of Dr. Junior - ordered another 1gm/kg dose tomorrow evening (24 hours after 1st dose) - will hold on steroids for now, per Heme/Onc recs - will also hold on platelet infusion for now (per Heme/Onc recs), but low threshold to initiate infusion if patient develops any signs of active bleeding - hold home Aspirin - peripheral smear ordered - pending - Lyme ordered - pending - CBC in the AM Intra-Abdominal Masses Per CT A/P on 05/08 and PET/CT on 05/25. Multiple scattered masses throughout abdomen/pelvis, concerning for lymphoproliferative process such as lymphoma, vs metastatic disease. - Surgery consulted for diagnostic laparoscopy - NPO at midnight for possible procedure tomorrow - Heme/Onc consulted as mentioned above T2DM Controlled, last A1c 5.7 on 06/02/2021. - SSI ordered while hospitalized - home meds held Depression/Anxiety - continue home Bupropion/Fluoxetine HTN - continue home Losartan/HCTZ HLD - continue home Atorvastatin RLS - continue home Sinemet FEN/GI: DM2 diet, NPO at midnight DVT Prophylaxis: hold chemoprophylaxis due to profound thrombocytopenia Code Status: Conditional - wants CPR and ALCS meds/pressors but does not want intubation Disposition: med/surg with tele (2) Intraabdominal mass: (3) Chronic kidney disease, stage 3a: (4) Diabetes mellitus: (5) Depression with anxiety: (6) Dyslipidemia: (7) Hypertension: (8) Hypothyroidism: (9) Restless legs syndrome (RLS): History of Present Illness Chief Complaint: rash and abnormal labs Primary Care Provider: Jaime Lyle MD Corbin Cueva is a 70 yo male with PMHx significant for T2DM (A1c 5.7 on 06/02/2021), CKDIII, HTN, HLD, Hypothyroidism and RLS who presents to [facility] on 06/08 for generalized purpuric rash x2 days. The patient has also had ~30 pound unintentional weight loss over the course of ~11 months. Denies fevers/night sweats. Denies previous occurrence of a rash such as this. The patient has been seeing Dr. Junior for work-up of generalized lymphadenopathy - he was scheduled to have PET scan and diagnostic laparoscopy for further evaluation. The patient reports acute-onset generalized purpuric rash covering his torso, extremities (including hands/feet) and oral mucosa. He reports that some of the lesions have started bleeding although very mildly, and quickly clotted off. Denies pain or pruritus of the lesions. Patient is not on any blood thinners, denies recent changes in medications, and denies N/V/hematemesis, melena/hematochezia, or signs of active bleeding. He does admit to getting bitten by a tick several days ago. Patient's father had gastric cancer and he reports that his brother "may have been diagnosed" with leukemia although he is unsure. The patient has a 35 pack year smoking history but quit 20 years ago. In the ED the patient was afebrile/hemodynamically stable on room air. Laboratory evaluation was significant for severe thrombocytopenia (plts 1K). PT/PTT/INR were WNL and Hgb appeared to be at relative baseline (13.4). Head CT was negative for intracranial bleed. Allergies Allergy/AdvReac Type Severity Reaction Status Date / Time lisinopril AdvReac Intermediate Cough Verified 06/08/21 09:24 ropinirole AdvReac Intermediate thoughts Verified 06/08/21 09:24 of gambling Home Medications Medication Instructions Recorded Confirmed Type pen needle, diabetic 32 gauge x #100 ea 05/06/19 06/08/21 Rx 5/32" (BD Ultra-Fine Yojana Pen Needle) blood sugar diagnostic (OneTouch #100 ea 12/23/20 06/08/21 Rx Verio test strips) bupropion HCl 300 mg 24 hr tablet, 300 mg PO QAM #90 tab 12/23/20 06/08/21 Rx extended release insulin aspart U-100 100 unit/mL 1 sliding scale dose SUBCUT 05/27/21 06/08/21 History subcutaneous solution (Novolog USEASDIRECTD U-100 Insulin aspart) aspirin 81 mg tablet,delayed 81 mg PO QAM 06/02/21 06/08/21 History release (Aspirin Low Dose) atorvastatin 80 mg tablet 80 mg PO QAM 06/02/21 06/08/21 History carbidopa 25 mg-levodopa 100 mg 3 tab PO HS 06/02/21 06/08/21 History tablet (Sinemet) fluoxetine 40 mg capsule 40 mg PO QAM 06/02/21 06/08/21 History hydrochlorothiazide 25 mg tablet 25 mg PO QAM 06/02/21 06/08/21 History insulin glargine 100 unit/mL (3 30 unit SUBCUT HS 06/02/21 06/08/21 History mL) subcutaneous pen (Lantus Solostar U-100 Insulin) losartan 25 mg tablet 25 mg PO QAM 06/02/21 06/08/21 History metformin 500 mg tablet 1,000 mg PO QAM 06/02/21 06/08/21 History Past Med/Surg History Medical History CKD (chronic kidney disease), stage III Depression with anxiety Diabetes mellitus, type 2 IDDM Diabetic nephropathy associated with type 2 diabetes mellitus Hyperlipidemia Hypertension Hypothyroidism Pt denies TSH WNL in 10/2020- patient not on thyroid meds Restless legs syndrome (RLS) Status post gamma knife treatment (~2002) Trigeminal neuralgia (~2002) Surgical History H/O arthroscopy of knee left H/O vasectomy History of adenoidectomy History of cardiac cath (~2018) no stents. History of carpal tunnel surgery left History of cataract surgery bilateral History of tonsillectomy Family History Mother Diabetes Type 2 diabetes mellitus Hypercholesteremia Sister Diabetes Hypercholesteremia Hypertension Father Stomach cancer Myocardial infarction Cancer Other Family history non-contributory No family history of adverse response to anesthesia Denies family history of Ovarian cancer Prostate cancer Breast cancer Social History Smoking Status: Never smoker Tobacco Type: Cigarettes Age Started Using Tobacco: 14; Age Quit Using Tobacco: 50; Second Hand Exposure: No; Do You Dip or Chew Tobacco: No; Tobacco Cessation Education Requested by Patient: No Hx Alcohol Use: No Hx Substance Use: No Preferred Language: Cuban Communication Ability: Effective Visual Impairment: Limited Hearing Ability: Hard of Hearing Jewel Sawyer Required: No Beliefs That Will Affect Care: None marital status: Current Living Situation: Spouse current occupational status: retired How many Children do You have: 1 Other Information That Helps Us Care for You: No Feels Safe at Home: No Is there a partner from a previous relationship who is making you feel unsafe now?: No Any Concerns about Your Family Situation: No Would You Like to Speak to Someone About Your Situation: No Safety Concerns: Feels Safe At This Time Childhood Exposure to Second-Hand Smoke: Yes (Father smoked ) Diet Comment: Regular diet caffeine: Yes (Coffee ) during the past year weight has: decreased > 10 lbs Dental Care, Regularly: Yes Physical Activity Frequency: Does not Exercise Seatbelt Use: sometimes Sunscreen Use: No Do you think of yourself as: straight/heterosexual Assistive Devices: None Review of Systems Review of Systems: All systems reviewed & are unremarkable except as noted in Subjective Physical Exam Physical Exam: General: A&Ox3. NAD. Cooperative. HEENT: Atraumatic, normocephalic. Pulm: CTAB A&P. -wheezes, -rales, -rhonchi. Symmetrical chest rise. No increase work of breathing. No respiratory distress. Cardiac: RRR, -mrg. Radial pulses intact and symmetrical. No LE edema. Abdominal: soft, non-tender, non-distended, BS x 4 Skin: non-blanching purpura are present on chest/back/abdomen and extremities including hands/feet, also present on oral mucosa and on face, several excoriations on legs with minimal dried blood, no signs of active bleeding Results & Data Results & Data ([facility]) Vital Signs (Past 12 Hours) Vital Signs Temp Pulse Pulse Resp BP BP Pulse Ox 06/08/21 18:13 62 16 145/78 H 99 06/08/21 14:58 36.9 C 70 20 171/92 H 97 Supervising Physician Co-Signing Physician Notes Patient seen and examined, chart reviewed, case discussed with Dr. Maguire and I agree with his assessment and plan as documented above. In brief, Mr. Cueva is a 70-year-old male presenting with purpuric rash and thrombocytopenia with platelets = 1000. He notes the rash has been present approximately 2 days. He admits to easy bleeding with minimal trauma as well as bleeding gums and occasional blood with nose blowing. Patient is presently undergoing work-up with Dr. Dorantes for possible hematological malignancy. Exam he is afebrile hemodynamically stable, no acute distress Diffuse purpuric rash. Small areas of scabbing present on anterior shins bilaterally. No active mucosal bleeding HEENT, normocephalic/atraumatic, pupils equal round and reactive to light, moist mucous membranes, neck supple Heart+ S1, S2, regular, no murmur/rub/gallops Lungsequal air entry bilaterally, no rales/rhonchi/wheezes Abdomen+ bowel sounds, soft, nontender, nondistended, no organomegaly Extremitieswarm, well-perfused Labs and images reviewed. Assessment/[id number] male presenting with purpuric rash, platelets = 1 K. Concern for underlying lymphoproliferative malignancy IVIG 1 mg/kg x 2 doses Hematology consultation appreciated We will check Lyme labsdoubtful source however, patient does state he had a tick on the back of his head 2 weeks ago Peripheral blood smear Surgical consultation appreciated Remainder of plan as above Resident Activity Tracking Resident Involvement: Resident Care Provided Care Provided: Adult Hospital Medicine
--- NOTE | 2021-06-08 23:50 | Emergency Department Note ---
History of Present Illness General Chief complaint: Abnormal Labs/Diagnostic Testing Stated complaint: PLATELET COUNT UNDER 3000;BLEEDING Time Seen by Provider: 06/08/21 17:43 History of Present Illness Provider complaint: Rash low platelets Onset (ago): day(s) 2 Maximum Pain Intensity: 0 Associated symptoms: + headaches and + rash; no confusion, no chest pain, no cough, no diaphoresis, no fever/chills, no nausea/vomiting, no shortness of breath or no weakness [id number] male presents emergency department for rash low platelets. Patient states he started having a rash on Tuesday which started on his extr emities and then spread all over his body including inside his mouth. The patient states he is a patient of Dr. Junior's. Dr. Junior has been working up the patient for possible Hodgkin's lymphoma. He states he was instructed to come to the emergency department. He denies any chest pain or difficulty breathing. He does report headache. No fevers. No hematochezia or melena. No hematuria. No epistaxis. No gingival bleeding. Home Medications Medication Instructions Recorded Confirmed Type pen needle, diabetic 32 gauge x #100 ea 05/06/19 06/08/21 Rx 5/32" (BD Ultra-Fine Yojana Pen Needle) blood sugar diagnostic (OneTouch #100 ea 12/23/20 06/08/21 Rx Verio test strips) bupropion HCl 300 mg 24 hr tablet, 300 mg PO QAM #90 tab 12/23/20 06/08/21 Rx extended release insulin aspart U-100 100 unit/mL 1 sliding scale dose SUBCUT 05/27/21 06/08/21 History subcutaneous solution (Novolog USEASDIRECTD U-100 Insulin aspart) aspirin 81 mg tablet,delayed 81 mg PO QAM 06/02/21 06/08/21 History release (Aspirin Low Dose) atorvastatin 80 mg tablet 80 mg PO QAM 06/02/21 06/08/21 History carbidopa 25 mg-levodopa 100 mg 3 tab PO HS 06/02/21 06/08/21 History tablet (Sinemet) fluoxetine 40 mg capsule 40 mg PO QAM 06/02/21 06/08/21 History hydrochlorothiazide 25 mg tablet 25 mg PO QAM 06/02/21 06/08/21 History insulin glargine 100 unit/mL (3 30 unit SUBCUT 06/02/21 06/08/21 History mL) subcutaneous pen (Lantus Solostar U-100 Insulin) losartan 25 mg tablet 25 mg PO QAM 06/02/21 06/08/21 History metformin 500 mg tablet 1,000 mg PO QAM 06/02/21 06/08/21 History Allergies Allergy/AdvReac Type Severity Reaction Status Date / Time lisinopril AdvReac Intermediate Cough Verified 06/08/21 09:24 ropinirole AdvReac Intermediate thoughts Verified 06/08/21 09:24 of gambling Past Med/Surg History Medical History CKD (chronic kidney disease), stage III Depression with anxiety Diabetes mellitus, type 2 IDDM Diabetic nephropathy associated with type 2 diabetes mellitus Hyperlipidemia Hypertension Hypothyroidism Pt denies TSH WNL in 10/2020- patient not on thyroid meds Restless legs syndrome (RLS) Status post gamma knife treatment (~2002) Trigeminal neuralgia (~2002) Surgical History H/O arthroscopy of knee left H/O vasectomy History of adenoidectomy History of cardiac cath (~2018) no stents. History of carpal tunnel surgery left History of cataract surgery bilateral History of tonsillectomy Family History Mother Diabetes Type 2 diabetes mellitus Hypercholesteremia Sister Diabetes Hypercholesteremia Hypertension Father Stomach cancer Myocardial infarction Cancer Other Family history non-contributory No family history of adverse response to anesthesia Denies family history of Ovarian cancer Prostate cancer Breast cancer Social History Smoking Status: Current every day smoker Tobacco Type: Cigarettes Age Started Using Tobacco: 14; Age Quit Using Tobacco: 50; Second Hand Exposure: Yes (Father smoked ); Hx Alcohol Use: Yes Alcohol type: hard liquor Alcohol Intake Frequency: Monthly or Less Hx Substance Use: No Preferred Language: Estonian Communication Ability: Effective Visual Impairment: Limited Hearing Ability: Hard of Hearing Microbiology Instructor Required: No Beliefs That Will Affect Care: None marital status: Current Living Situation: Spouse current occupational status: retired How many Children do You have: 1 Feels Safe at Home: Yes Childhood Exposure to Second-Hand Smoke: Yes (Father smoked ) Diet Comment: Regular diet caffeine: Yes (Coffee ) during the past year weight has: decreased > 10 lbs Dental Care, Regularly: Yes Physical Activity Frequency: Does not Exercise Seatbelt Use: sometimes Sunscreen Use: No Do you think of yourself as: straight/heterosexual Assistive Devices: Glasses and Hearing Aid - Bilateral Review of Systems A total of 10 systems reviewed and were otherwise negative Physical Exam Vital Signs Vital Signs - 24 hr 06/08/21 14:58 06/08/21 18:13 06/08/21 20:18 Temperature 36.9 C 36.9 C Temperature Source Oral Oral Pulse Rate 70 Pulse Rate [Right Finger] 62 64 Pulse Rhythm [Right Finger] Regular Respiratory Rate 20 16 16 Respiratory Effort / Characteristics Non-Labored Non-Labored Spontaneous Non-Labored Respiratory Depth Normal Normal Normal Respiratory Pattern Regular Blood Pressure 171/92 H Blood Pressure [Right Arm] 145/78 H 168/75 H Blood Pressure Mean 118 Blood Pressure Mean [Right Arm] 100 106 Pulse Oximetry 97 99 98 Oxygen Delivery Method Room Air Room Air Room Air Sepsis Recent Fever Within 48 Hours No Sepsis New/Unexplained Change in Mental Status N/A Sepsis Action Taken by Nursing No Action Required 06/08/21 20:34 06/08/21 21:00 06/08/21 21:15 Temperature Temperature Source Pulse Rate 88 85 Pulse Rate [Right Finger] 63 Pulse Rhythm [Right Finger] Regular Respiratory Rate 16 21 18 Respiratory Effort / Characteristics Non-Labored Respiratory Depth Normal Respiratory Pattern Blood Pressure 158/89 H 160/83 H Blood Pressure [Right Arm] 149/84 H Blood Pressure Mean 112 108 Blood Pressure Mean [Right Arm] 105 Pulse Oximetry 99 97 97 Oxygen Delivery Method Room Air Sepsis Recent Fever Within 48 Hours Sepsis New/Unexplained Change in Mental Status Sepsis Action Taken by Nursing 06/08/21 21:31 06/08/21 22:00 06/08/21 22:30 Temperature Temperature Source Pulse Rate 95 H 90 81 Pulse Rate [Right Finger] Pulse Rhythm [Right Finger] Respiratory Rate 20 16 19 Respiratory Effort / Characteristics Respiratory Depth Respiratory Pattern Blood Pressure 138/84 178/97 H 155/86 H Blood Pressure [Right Arm] Blood Pressure Mean 102 124 109 Blood Pressure Mean [Right Arm] Pulse Oximetry 98 98 98 Oxygen Delivery Method Sepsis Recent Fever Within 48 Hours Sepsis New/Unexplained Change in Mental Status Sepsis Action Taken by Nursing Physical Exam GENERAL: He is oriented to person, place, and time. He appears well-developed and well-nourished. He does not appear distressed. HENT: Exam performed. - Head: Normocephalic and atraumatic. - Right Ear: External ear normal. No mastoid tenderness. - Left Ear: External ear normal. No mastoid tenderness. - Mouth/Throat: Wet purpura present. No trismus in the jaw. No dental abscesses or uvula swelling. No oropharyngeal exudate or tonsillar abscesses. EYES: Conjunctivae and EOM are normal. Pupils are equal, round, and reactive to light. Right eye exhibits no discharge. Left eye exhibits no discharge. No scleral icterus. NECK: Normal range of motion. Neck supple. No JVD present. No spinous process tenderness present. No carotid bruit present. No rigidity. No tracheal deviation and normal range of motion present. No Brudzinski's sign and no Kernig's sign noted. CV: Normal rate, regular rhythm, normal heart sounds and intact distal pulses. There is no peripheral edema. Palpable radial pulses bue. PULM/CHEST: Effort normal and breath sounds normal. No respiratory distress. No stridor. He has no wheezes. He has no rales. - Chest Wall: He exhibits no tenderness. ABD: The abdomen is soft. Bowel sounds are normal. He has no distension. No mass is present. There is no tenderness. There is no rebound, no guarding, no Upton's sign and no tenderness at McBurney's point. Rovsig negative. MUSC/SKEL: Normal range of motion. There is no peripheral edema, tenderness or deformity. LYMPH: No cervical adenopathy. NEURO: He is alert and oriented to person, place, and time. He has normal strength. No cranial nerve deficit or sensory deficit. Coordination and gait normal. GCS eye subscore is 4. GCS verbal subscore is 5. GCS motor subscore is 6. Cerebellar tests wnl. SKIN: Petechial rash over the bilateral upper extremities, trunk, bilateral lower extremities. PSYCH: He has a normal mood and affect. Behavior is normal. Judgment and thought content normal. Course Course 1742: The patient was evaluated in room C9. A complete history and physical exam was performed Cardiac monitoring: An order was placed for continuous cardiac monitoring. The monitor shows a rate of 80 with sinus rhythm Patient was seen during a time of extreme volume and extreme acuity during the COVID- pandemic. Nursing triage protocols were initiated and labs were drawn by protocol in the triage area. Administered Medications Immune Globulin (Flebogamma 10%) 100 mls @ 66 mls/hr IV Q1H ALONZO; Protocol Stop: 06/09/21 06:44 Last Admin: 06/08/21 23:06 Dose: 200 mls/hr Documented by: [id number] Infusion: 06/08/21 22:43 Dose: 200 mls/hr Documented by: [id number] Admin: 06/08/21 22:13 Dose: 200 mls/hr Documented by: [id number] Infusion: 06/08/21 22:09 Dose: 150 mls/hr Documented by: [id number] Admin: 06/08/21 21:28 Dose: 150 mls/hr Documented by: [id number] Infusion: 06/08/21 21:24 Dose: 150 mls/hr Documented by: [id number] Infusion: 06/08/21 21:02 Dose: 150 mls/hr Documented by: [id number] Admin: 06/08/21 20:19 Dose: 66 mls/hr Documented by: [id number] Medical Decision Making Laboratory Data Result diagrams: 06/08/21 17:00 06/08/21 17:00 Lab Results 06/08/21 06/08/21 06/08/21 Range/Units 17:00 17:00 17:00 WBC 6.06 (4.8-10.8) K/uL RBC 4.52 L (4.7-6.1) M/uL Hgb 13.4 L (14.0-18.0) g/dL Hct 39.8 L (42-52) % MCV 88.1 (80-100) fL MCH 29.6 (25-34) pg MCHC 33.7 (32-36) g/dL RDW Std Deviation 45.5 (36.4-46.3) fL RDW Coeff of Beck 14.1 (11.5-14.5) % Plt Count 1 L* (130-400) K/uL Immature Gran % (Auto) 0.3 % Neut % (Auto) 69.3 % Lymph % (Auto) 15.2 % [place] % (Auto) 11.1 % Eos % (Auto) 3.6 % Baso % (Auto) 0.5 % Neut # (Auto) 4.20 (1.4-6.5) K/uL Lymph # (Auto) 0.92 L (1.2-3.4) K/uL [place] # (Auto) 0.67 H (0.11-0.59) K/uL Eos # (Auto) 0.22 (0-0.5) K/uL Baso # (Auto) 0.03 (0-0.2) K/uL Immature Gran # (Auto) 0.02 (0.00-0.02) K/uL Platelet Estimate SIGNIFIC DECREASED (Normal) PT (9.0-12.0) Seconds INR (0.9-1.1) APTT (21.0-31.0) Seconds PTT Ratio Sodium 141 (136-145) mmol/L Potassium 4.4 (3.5-5.1) mmol/L Chloride 109 H (98-107) mmol/L Carbon Dioxide 27 (21-32) mmol/L Anion Gap 5.0 (3-11) BUN 20 H (7-18) mg/dl Creatinine 0.89 (0.6-1.4) mg/dl Est Cr Clr Drug Dosing 98.4 ml/min Est GFR ( Amer) 99.0 ml/min Est GFR (Non-Af Amer) 85.4 ml/min BUN/Creatinine Ratio 22.3 H (10-20) Glucose 78 (70-99) mg/dl Calcium 9.3 (8.5-10.1) mg/dl Total Bilirubin 1.1 H (0.2-1) mg/dl AST 16 (15-37) U/L ALT 15 (12-78) U/L Alkaline Phosphatase 127 H (45-117) U/L Total Protein 7.3 (6.4-8.2) gm/dl Albumin 3.6 (3.4-5.0) gm/dl Globulin 3.7 (2.5-4.0) gm/dl Albumin/Globulin Ratio 1.0 (0.9-2) Urine Color Yellow Urine Appearance Clear (Clear) Urine pH 8.0 H (4.5-7.5) Ur Specific [place] 1.018 (1.000-1.030) Urine Protein Negative (Negative) Urine Glucose (UA) Negative (Negative) Urine Ketones Negative (Negative) Urine Blood Trace H (Negative) Urine Nitrite Negative (Negative) Urine Bilirubin Negative (Negative) Urine Urobilinogen Negative (Negative) Ur Leukocyte Esterase Negative (Negative) Urine WBC (Auto) 1-5 (0-5) /hpf Urine RBC (Auto) 10-30 H (0-4) /hpf U Hyaline Cast (Auto) 0 (0-5) /lpf U Epithel Cells (Auto) 10-20 H (0-5) /lpf Urine Bacteria (Auto) Negative (Negative) 06/08/21 Range/Units 19:25 WBC (4.8-10.8) K/uL RBC (4.7-6.1) M/uL Hgb (14.0-18.0) g/dL Hct (42-52) % MCV (80-100) fL MCH (25-34) pg MCHC (32-36) g/dL RDW Std Deviation (36.4-46.3) fL RDW Coeff of Beck (11.5-14.5) % Plt Count (130-400) K/uL Immature Gran % (Auto) % Neut % (Auto) % Lymph % (Auto) % [place] % (Auto) % Eos % (Auto) % Baso % (Auto) % Neut # (Auto) (1.4-6.5) K/uL Lymph # (Auto) (1.2-3.4) K/uL [place] # (Auto) (0.11-0.59) K/uL Eos # (Auto) (0-0.5) K/uL Baso # (Auto) (0-0.2) K/uL Immature Gran # (Auto) (0.00-0.02) K/uL Platelet Estimate (Normal) PT 10.3 (9.0-12.0) Seconds INR 1.0 (0.9-1.1) APTT 25.4 (21.0-31.0) Seconds PTT Ratio 1.0 Sodium (136-145) mmol/L Potassium (3.5-5.1) mmol/L Chloride (98-107) mmol/L Carbon Dioxide (21-32) mmol/L Anion Gap (3-11) BUN (7-18) mg/dl Creatinine (0.6-1.4) mg/dl Est Cr Clr Drug Dosing ml/min Est GFR ( Amer) ml/min Est GFR (Non-Af Amer) ml/min BUN/Creatinine Ratio (10-20) Glucose (70-99) mg/dl Calcium (8.5-10.1) mg/dl Total Bilirubin (0.2-1) mg/dl AST (15-37) U/L ALT (12-78) U/L Alkaline Phosphatase (45-117) U/L Total Protein (6.4-8.2) gm/dl Albumin (3.4-5.0) gm/dl Globulin (2.5-4.0) gm/dl Albumin/Globulin Ratio (0.9-2) Urine Color Urine Appearance (Clear) Urine pH (4.5-7.5) Ur Specific [place] (1.000-1.030) Urine Protein (Negative) Urine Glucose (UA) (Negative) Urine Ketones (Negative) Urine Blood (Negative) Urine Nitrite (Negative) Urine Bilirubin (Negative) Urine Urobilinogen (Negative) Ur Leukocyte Esterase (Negative) Urine WBC (Auto) (0-5) /hpf Urine RBC (Auto) (0-4) /hpf U Hyaline Cast (Auto) (0-5) /lpf U Epithel Cells (Auto) (0-5) /lpf Urine Bacteria (Auto) (Negative) Imaging Data Radiologist's Impression: Head CT 06/08/21 17:[address] CT DOSE: 614.27 mGy.cm HISTORY: Headache. TECHNIQUE: Multiaxial CT images of the head were performed without the use of intravenous contrast. Automated exposure control was utilized for this study. A dose lowering technique was utilized adhering to the principles of ALARA. Comparison: 03/24/2019. Findings: The paranasal sinuses and mastoid air cells are clear. The calvarium and skull base are intact. There is no mass, hematoma, midline shift, acute infarct. White matter hypodensity is nonspecific but suggestive of microvascular ischemic change. The ventricles and sulci demonstrate mild age-related involutional changes. 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 Impression: No acute intracranial abnormality. Atrophy and microvascular ischemic changes. ACT 112: Negative or not required by law. Electronically signed by: Cabrera Hammer M.D. 06/08/2021 6:13 PM MDM Narrative Vital signs stable. Labs show a platelet count of 1. CT of the head is within normal limits. Hemoglobin within normal limits. Kidney function within normal limits. Discussed the case with the patient's oncologist Dr. Junior who states he is not sure if the patient truly has Hodgkin's lymphoma or possibly CLL. He r ecommends that the patient be admitted to the hospitalist service, be given 1 g/kg of IVIG tonight and tomorrow, and he asked that Dr. Moreno from surgery be placed on consult. He states he will evaluate the patient tomorrow. Patient will be admitted to Dr. Richard team [facility] hospitalist Impression & Plan Acute ITP Discharge Plan Visit Data Chief Complaint: Abnormal Labs/Diagnostic Testing Stated Complaint: PLATELET COUNT UNDER 3000;BLEEDING Discharge Problem: Acute ITP Patient Disposition: Admitted As Inpatient Forms Stand Alone Forms: My [facility] Prescriptions Prescriptions: No Action (DME) OneTouch Verio test strips Strip See Rx Instructions .ROUTE .MEDSUPPLY Qty: 100 RF: 7 bupropion HCl 300 mg tablet extended release 24 hr 300 mg PO QAM Qty: 90 RF: 3 insulin aspart U-100 [Novolog U-100 Insulin aspart] 100 unit/mL solution 1 sliding scale dose subcut USEASDIRECTD RF: 0 (DME) pen needle, diabetic [BD Ultra-Fine Yojana Pen Needle] 32 gauge x 5/32" needle See Dose Instructions .ROUTE .MEDSUPPLY Qty: 100 RF: 3 fluoxetine 40 mg capsule 40 mg PO QAM RF: 0 metformin 500 mg tablet 1,000 mg PO QAM RF: 0 atorvastatin 80 mg tablet 80 mg PO QAM RF: 0 aspirin [Aspirin Low Dose] 81 mg tablet,delayed release (DR/EC) 81 mg PO QAM RF: 0 losartan 25 mg tablet 25 mg PO QAM RF: 0 carbidopa-levodopa [Sinemet] 25-100 mg tablet 3 tab PO HS RF: 0 Lantus Solostar U-100 Insulin 100 unit/mL (3 mL) insulin pen 30 unit subcut HS RF: 0 hydrochlorothiazide 25 mg Tablet 25 mg PO QAM RF: 0 Referrals Referrals: Jaime Lyle MD [Primary Care Provider] -
[2021-06-08] MEDS ORDERED: POLYETHYLENE (MIRALAX) 17 GM PACK PO PRN (23:59)
[2021-06-08] MEDS ORDERED: CARBIDOPA/LEVODOPA 25/100MG TAB PO SCH (23:59)
[2021-06-08] MEDS ORDERED: GLUCAGON FOR INJ 1 MG VIAL SQ PRN (23:59)
[2021-06-08] MEDS ORDERED: GLUCOSE 40% GEL 15 GM TUBE PO PRN (23:59)
[2021-06-08] MEDS ORDERED: DEXTROSE 50% 50 ML SYRINGE IV PRN (23:59)
[2021-06-08] MEDS ORDERED: CARBOHYDRATES FOR HYPOGLYCEMIA PO PRN (23:59)
[2021-06-08] MEDS ORDERED: GLUCOSE 10 TABS/TUBE PO PRN (23:59)
[2021-06-08] MEDS ORDERED: ACETAMINOPHEN 325 MG TAB PO PRN (23:59)
[2021-06-09] MEDS: CARBIDOPA/LEVODOPA 25/100MG TAB PO SCH ×3 (01:32→19:57)
[2021-06-09] MEDS: IMMUNE GLOBULIN(HUMAN) 10% 100 ML IV SCH ×13 (01:46→23:58)
--- NOTE | 2021-06-09 04:41 | Billing Data ---
Date of Service June 08, 2021 Coding Level of Care Code 71053 Initial Inpt Care Lvl 3
[2021-06-09] MEDS ORDERED: INSULIN ASPART 100 UNITS/ML 3 ML PEN SC SCH (06:00)
[2021-06-09] MEDS: FLUoxetine HCL 20 MG CAP PO SCH (07:15)
[2021-06-09 07:17] LABS: Albumin Globulin Ratio 0.7 (0.9-2); Albumin Level 3.2 gm/dl (3.4-5.0); BUN Creatinine Ratio 20.1 (10-20); Bilirubin,Total 1.5 mg/dl (0.2-1); Calcium 8.9 mg/dl (8.5-10.1); Creatinine Clr Calc Pharmacy 93.2 ml/min; Est GFR (African American) 93.5 ml/min; Est GFR (Non-African American) 80.7 ml/min; Globulin 4.7 gm/dl (2.5-4.0); Phosphorus 3.2 mg/dl (2.5-4.9); Potassium 3.7 mmol/L (3.5-5.1); Total Protein 7.9 gm/dl (6.4-8.2)
[2021-06-09] MEDS: buPROPion XL 300 MG TABCR PO SCH (07:18)
[2021-06-09] MEDS: ATORVASTATIN 40 MG TAB PO SCH (07:19)
[2021-06-09] MEDS: hydroCHLOROthiazide 25 MG TAB PO SCH (07:19)
[2021-06-09] MEDS: LOSARTAN POTASSIUM 25 MG TAB PO SCH (07:19)
[2021-06-09 07:22] LABS: Hematocrit (blood only) 36.8 % (42-52); Hemoglobin 12.5 g/dL (14.0-18.0); Mean Corpuscular Volume 88.5 fL (80-100); Platelet Count 3 K/uL (130-400); RDW Coefficient of Variation 14.2 % (11.5-14.5); RDW Standard Deviation 45.9 fL (36.4-46.3); Red Blood Count 4.16 M/uL (4.7-6.1)
[2021-06-09 07:23] LABS: Basophils # (auto) 0.02 K/uL (0-0.2); Basophils % (auto) 0.6 %; Eosinophils # (auto) 0.15 K/uL (0-0.5); Eosinophils % (auto) 4.2 %; Immature Granulocytes # (auto) 0.01 K/uL (0.00-0.02); Immature Granulocytes % (auto) 0.3 %; Lymphocytes # (auto) 0.72 K/uL (1.2-3.4); Monocytes # (auto) 0.52 K/uL (0.11-0.59); Monocytes % (auto) 14.4 %; Neutrophils # (auto) 2.18 K/uL (1.4-6.5); Neutrophils % (auto) 60.5 %; Platelet Estimate SIGNIFIC DECREASED (Normal)
[2021-06-09 07:30] LABS: Lyme Ab IgG w/WB Rflx Negative (Negative); Lyme Ab IgM w/WB Rflx Negative (Negative)
--- NOTE | 2021-06-09 09:42 | Hospitalist Progress Note ---
Date of Service June 09, 2021 Assessment & Plan (1) Thrombocytopenia: Plan: Corbin Cueva is a 70 yo male with PMHx significant for T2DM (A1c 5.7 on 06/02/2021), CKDIII, HTN, HLD, Hypothyroidism and RLS who presents to [facility] on 06/08 for generalized purpuric rash x2 days. Thrombocytopenia; Purpuric Rash Two-day history of such, with platelets of 1K on admission, no signs of active bleeding. Suspect ITP due to underlying hematologic malignancy such as CLL or Hodgkin's lymphoma. Less likely due to tick-borne illness. - Heme/Onc consulted - appreciate recs - received IVIG 1gm/kg x1 in the ED, per recommendations of Dr. Junior - Repeat 1gm/kg dose tomorrow evening (24 hours after 1st dose on 06/09) - will hold on steroids for now--reevaluate after second IVIG dose and decide whether steroids will be needed - hold on platelet infusion for now, but low threshold to initiate infusion if patient develops any signs of active bleeding - hold home Aspirin - CBC in the AM Intra-Abdominal Masses Per CT A/P on 05/08 and PET/CT on 05/25. Multiple scattered masses throughout abdomen/pelvis, concerning for lymphoproliferative process such as lymphoma, vs metastatic disease. - Surgery consulted for diagnostic laparoscopy and possible Mediport placement - Will hold on procedure until thrombocytopenia has improved to acceptable levels for surgery - Heme/Onc consulted as mentioned above T2DM Controlled, last A1c 5.7 on 06/02/2021. - SSI ordered while hospitalized - home meds held Depression/Anxiety - continue home Bupropion/Fluoxetine HTN - continue home Losartan/HCTZ HLD - continue home Atorvastatin RLS - continue home Sinemet FEN/GI: DM2 diet DVT Prophylaxis: hold chemoprophylaxis due to profound thrombocytopenia Code Status: Conditional - wants CPR and ALCS meds/pressors but does not want intubation Disposition: med/surg with tele (2) Intraabdominal mass: (3) Chronic kidney disease, stage 3a: (4) Diabetes mellitus: (5) Depression with anxiety: (6) Dyslipidemia: (7) Hypertension: (8) Hypothyroidism: (9) Restless legs syndrome (RLS): Admission and Anticipated Discharge Date Admission Date: June 08, 2021 Supervising Physician Co-Signing Physician Notes Patient seen and examined with PGY-2 Dr. Nicole. Agree with history, exam findings, assessment and plan of care as outlined. In brief, Mr. Singh is a 70 year old male with hx of DM2, CKD, HTN, hypothyroid and history of possible lymphoproliferative process (followed by Dr. Junior) admitted with ITP, platelet count of 1,000. Overall, feels well. Does occasionally taste blood in his mouth, but has not had overt bleeding anywhere. Vital signs and nursing notes reviewed. Well appearing. Petechiae of the lower extremities. One obvious purpuric lesion of the lip. Labs and imaging reviewed. 1. ITP. Started IVIG. Platelet count from 1000 to 3000 overnight. No bleeding. Continue with IVIG. Follow platelet counts. 2. Intraabdominal mass. ?lymphoproliferative process. At some point, will have diagnostic laparoscopy for tissue diagnosis with general surgery and can have mediport placed at the same time. Awaiting improvement of platelet count for thi s 3. DM. Holding metformin. Insulin basal-bolus while here. A1C earlier this month was 5.7%. 4. HTN. Continue home losartan, HCTZ. 5. HLD. Continue home atorvastatin. Dispo: pending clinical improvement. Subjective Patient seen at bedside this AM. Sitting comfortably and has no complaints. He is mainly worried about his low platelets and what this means for being able to do the diagnostic surgery. Explained treatment plan to his understanding and satisfaction. Review of Systems Review of Systems: All systems reviewed & are unremarkable except as noted in Subjective Physical Exam Physical Exam: General: A&Ox3. NAD. Cooperative. HEENT: Atraumatic, normocephalic. Pulm: CTAB A&P. -wheezes, -rales, -rhonchi. Symmetrical chest rise. No increase work of breathing. No respiratory distress. Cardiac: RRR, -mrg. Radial pulses intact and symmetrical. No LE edema. Abdominal: soft, non-tender, non-distended, BS x 4 Skin: non-blanching purpura are present on chest/back/abdomen and extremities Results & Data Results & Data ([facility]) Vital Signs (Past 12 Hours) Vital Signs Temp Pulse Pulse Resp BP BP BP 06/09/21 07:14 36.6 C 58 L 16 136/72 06/09/21 03:19 36.8 C 58 L 16 164/71 H 06/09/21 00:23 37.1 C 79 16 164/65 H 06/09/21 00:22 37.1 C 79 16 164/65 H 06/09/21 00:13 82 06/08/21 22:30 81 19 155/86 H 06/08/21 22:00 90 16 178/97 H Pulse Ox 06/09/21 07:14 97 06/09/21 03:19 99 06/09/21 00:23 98 06/09/21 00:22 98 06/09/21 00:13 06/08/21 22:30 98 06/08/21 22:00 98 Resident Activity Tracking Resident Involvement: Resident Care Provided Care Provided: Adult Hospital Medicine
--- NOTE | 2021-06-09 11:21 | Consultation Report ---
MEDICAL ONCOLOGY CONSULTATION DATE OF SERVICE: 06/09/2021 REASON FOR CONSULTATION: ITP in the setting of suspected lymphoproliferative process. HISTORY OF PRESENT ILLNESS: Mr. Corbin Cueva is a very pleasant 70-year-old gentleman well known to me here at [facility] over the past couple of years. I had originally followed this gentleman for chronic normocytic normochromic anemia; however, he was referred back to me because of CT findings in the Emergency Room at [facility] in [place] in 07/2020. At that time, he had related severe abdominal pain. He described it as a dull ache and persisted for several days leading up to ER visit and subsequent CT scan of the abdomen. There were soft tissue nodules within the mesentery and omentum demonstrating a significant infiltration of the fat below the lower abdominal and upper pelvis anterior to the mid distal abdominal aorta and distal aortic bifurcation. Thus, once his symptoms resolved, continued to follow Corbin radiographically and I had seen Corbin back on 05/15; at which time, CT scan was updated, which revealed significant disease progression. Unfortunately, I did not have those results at the time of his appointment and thus had to contact him by phone later that evening because findings were suspicious for a probable emerging lymphoproliferative process. He then underwent PET scan, which confirmed my suspicions, subsequently made arrangements for Corbin to visit with Dr. Jaime Moreno for laparoscopic removal of lymph node for diagnosis. Unfortunately, Corbin has not seen surgery. I was contacted by the Emergency Room physician last night alerting me to Corbin' platelet count as he presented with a petechial rash and wet purpura; instructed admission and initiation of immunoglobulin. PAST MEDICAL HISTORY: Significant for cerebral arteriovenous malformation, chronic anemia, chronic kidney disease, coronary atherosclerosis, type 2 diabetes mellitus, hyperlipidemia, hypertension, thrombocytopenia, Dave's thyroiditis, vitamin B12 deficiency and vitamin D deficiency. PAST SURGICAL HISTORY: Include carpal tunnel release, vasectomy, lithotripsy and Gamma Knife for brain. MEDICATIONS: Include metformin 1000 mg p.o. daily, losartan 25 mg p.o. daily, insulin glargine 30 units subQ at bedtime, hydrochlorothiazide 25 mg p.o. daily, fluoxetine 40 mg p.o. daily, carbidopa/levodopa 3 tablets p.o. at bedtime, atorvastatin 80 mg p.o. daily, aspirin 81 mg p.o. daily, sliding scale insulin, bupropion 300 mg p.o. daily. ALLERGIES: ROPINIROLE. FAMILY HISTORY: Mother suffered from type 2 diabetes mellitus and hypercholesterolemia. Sister also suffers from diabetes mellitus and high lipids as well as hypertension. Father from stomach cancer, also suffered myocardial infarction. SOCIAL HISTORY: The patient is retired. He resides with his spouse. He is negative for cigarettes, alcohol, or illicit substances. REVIEW OF SYSTEMS: As per HPI. The patient presented to the Emergency Room with wet purpura and a petechial rash. No fevers, chills or sweats. He is not anorexic or losing weight. SKIN: Again positive for petechiae involving his lower extremities predominantly. HEENT: Negative for headaches, lightheadedness or dizziness. No acute visual or hearing deficits. No sinus symptoms, sore throat or dysphagia. LYMPHATICS: Negative for peripheral lymphadenopathy. Positive for lymphadenopathy mainly within the abdomen. CARDIAC: No current angina or palpitations. PULMONARY: He is not short of breath, dyspneic or orthopneic. No cough or hemoptysis. GASTROINTESTINAL: Negative for abdominal pain, nausea, vomiting, diarrhea or constipation, hematochezia or melena stools. GENITOURINARY: No hematuria, dysuria, or urinary incontinence. PSYCHIATRIC: Positive for anxiety. ENDOCRINE: Positive for type 2 diabetes mellitus. MUSCULOSKELETAL: No arthralgias or myalgias. No focal muscle weakness. NEUROLOGIC: Brain AVM. No history of seizure disorder or migraine headache. HEMATOLOGIC: Positive for chronic normocytic normochromic anemia. PHYSICAL EXAMINATION: GENERAL: Very pleasant 70-year-old gentleman, awake, alert and appropriate, in no acute distress. VITAL SIGNS: Temperature 36.6, pulse 58, respiratory rate 16, blood pressure 136/72. SKIN: Warm, dry, noncyanotic. There is evident petechiae in his lower extremities as well as wet purpura orally. HEENT: Atraumatic, normocephalic. Eyes: PERRLA. EOMI. Sclerae are nonicteric. No conjunctival injection. Nares patent without rhinorrhea or discharge. Throat positive for wet purpura. NECK: Supple without JVD or thyromegaly. HEART: Regular rate and rhythm. No clicks, rubs, murmurs or gallops. LUNGS: Clear to auscultation bilaterally. ABDOMEN: Soft, nontender, nondistended, without palpable hepatosplenomegaly. EXTREMITIES: No calf tenderness or swelling. No clubbing, cyanosis or edema. NEUROLOGIC: He is awake, alert and oriented x3. Cranial nerves II-XII are grossly intact. No gross motor or sensory deficits are noted. RADIOGRAPHIC DATA: PET scan dated 05/25/2021: Multiple scattered ill-defined soft tissue masses seen primarily within the retroperitoneal perinephric locations; these ill-defined soft tissue masses were also seen scattered throughout the mesentery and anterior omentum within the lower mid pelvis abutting the bladder dome. Dominant anterior omental lesion abutting the bladder dome, measures 5 x 3 cm, demonstrates an SUV of 10.5. Dominant serosal implant has seen, abuts the mid sigmoid colon. This measures 2.9 cm, has an SUV of 9.1. There is no evidence of bony involvement. LABORATORY DATA: WBC count 6060, hemoglobin 13.4, platelet count 1000. Sodium 141, potassium 4.4, chloride 109, carbon dioxide 27, BUN 20, creatinine 0.89. Alkaline phosphatase mildly elevated at 127, albumin 3.6. IMPRESSION: 1. Idiopathic thrombocytopenic purpura. 2. Suspected lymphoproliferative disorder involving the retroperitoneum and omentum. 3. End-stage renal disease. 4. History of chronic normocytic normochromic anemia. PLAN: I was somewhat surprised, but not really surprised that Corbin presented with a platelet count of 1000 with an underlying ITP. This gentleman has been under my suspicion for quite some time for an emerging lymphoproliferative process, brought to light by most recent PET scan in late April. Once the PET scan results were revealed, I immediately ordered a consultation with general surgery to have Corbin undergo laparoscopy for tissue diagnosis. During my interview with Corbin, he relates "problem with his platelets" a few years back and was treated empirically with steroids by his hospital administrative assistant. I was unaware of this event until this morning. That said, recommended the patient be admitted to the hospital. He was empirically started on immunoglobulin 1 g/kg x2 doses. Unfortunately, if platelets become refractory, may need to consider corticosteroids. However, would like to avoid until formal biopsy is obtained as steroids are lymphotoxic and could skew the patient's diagnosis moving forward. That said, if his platelet count has failed to respond, we will have to resort to prednisone or perhaps high-dose dexamethasone. I would like general surgery to visit with Corbin and anticipate they will not proceed with laparoscopy until platelet count exceeds 50,000. Additionally, we will request general surgery to place a MediPort in preparation for induction chemotherapy. 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 We will discuss further with the hospitalist service and follow Corbin periodically during hospital stay. I have nothing further to add at this time with the exception of obtaining peripheral counts on a daily basis. Job ID: [id number] MTDD
[2021-06-09] MEDS ORDERED: Nursing to Pharmacy Communication SCH (11:30)
--- NOTE | 2021-06-09 11:43 | Surgery Consultation ---
Date of Consultation June 09, 2021 Assessment & Plan (1) Intraabdominal mass: This is a 70yM with a PMH of DM, CKD, hypothyroid, depression who reports to the [facility] ED on 06/08/21 as a referral for rash and abnormal labs. The patient is known to us as he was scheduled to undergo diagnostic laparoscopy and tissue biopsy as patient is being worked up by Dr. Dorantes for possible lymphoproliferative disorder. The pt had a PET scan on 05/25/21 that was performed revealing "multiple scattered ill-defined soft tissue mass is seen throughout the abdomen and pelvis most pronounced within the retroperitoneal/perinephric spaces. There is also an FDG avid subcarinal lymph node and a single FDG avid right hilar lymph node. This could be secondary to metastatic disease of unknown primary or possibly lymphoma." Today labs reveal WBC 3.6, Hbg 12.5, Plt: 3 (1). For now we are going to plan to cancel patient's surgical procedure tomorrow due to low platelet count. We discussed with the hospitalist service and patient received IVIG yesterday and planning on another infusion today. If his platelets do not respond it sounds like he may need steroids. We will continue to follow along closely and will adjust our plans for surgical biopsy pending patient's improvement in lab work. We will discuss the probability of a mediport at that time per Dr. Dorantes's wishes. (2) Thrombocytopenia: Supervising Physician Co-Signing Physician Notes I personally saw and evaluated the patient with Maria C Blanchard PA-C and agree with the assessment and plan 70 yo male with intraabdominal massess and thrombocytopenia -Discussed with Dr. Moreno and will hold off on procedure at this time -Will need to have his thrombocytopenia corrected prior to procedure -Will follow from the periphery History of Present Illness Attending Physician: Diamond Kim DO History of Present Illness This is a 70yM with a PMH of DM, CKD, hypothyroid, depression who reports to the [facility] ED on 06/08/21 as a referral for rash and abnormal labs. Patient says his rash started this last Tuesday and he was scheduled to see Dermatology. He ended up having some blood work performed that showed low platelets and he was referred to the ER for further workup and evaluation. Of note the patient is a patient of Dr. Dorantes's and undergoing workup of possible lymphoproliferative disease. He had a PET scan that was performed revealing "multiple scattered ill- defined soft tissue mass is seen throughout the abdomen and pelvis most pronounced within the retroperitoneal/perinephric spaces. There is also an FDG avid subcarinal lymph node and a single FDG avid right hilar lymph node. This could be secondary to metastatic disease of unknown primary or possibly lymphoma." He was subsequently scheduled to undergo biopsy of one of these masses by Dr. Moreno this upcoming Tuesday. However, now due to abnormality in labs and rash he came into the ER yesterday. Labs reveal WBC 3.6, Hbg 12.5, Plt: 3(1). We have been consulted for consideration in obtaining tissue diagnosis. The patient denies any fevers/chills, nausea/vomiting, diarrhea /constipation, blood in BM's. He has no prior abdominal surgical history. He has never had a colonoscopy, but has undergone Cologuard in the past, last was 2 years ago. Allergies Allergy/AdvReac Type Severity Reaction Status Date / Time lisinopril AdvReac Intermediate Cough Verified 06/08/21 09:24 ropinirole AdvReac Intermediate thoughts Verified 06/08/21 09:24 of gambling Home Medications Medication Instructions Recorded Confirmed Type pen needle, diabetic 32 gauge x #100 ea 05/06/19 06/08/21 Rx 5/32" (BD Ultra-Fine Yojana Pen Needle) blood sugar diagnostic (OneTouch #100 ea 12/23/20 06/08/21 Rx Verio test strips) bupropion HCl 300 mg 24 hr tablet, 300 mg PO QAM #90 tab 12/23/20 06/08/21 Rx extended release insulin aspart U-100 100 unit/mL 1 sliding scale dose SUBCUT 05/27/21 06/08/21 History subcutaneous solution (Novolog USEASDIRECTD U-100 Insulin aspart) aspirin 81 mg tablet,delayed 81 mg PO QAM 06/02/21 06/08/21 History release (Aspirin Low Dose) atorvastatin 80 mg tablet 80 mg PO QAM 06/02/21 06/08/21 History carbidopa 25 mg-levodopa 100 mg 3 tab PO HS 06/02/21 06/08/21 History tablet (Sinemet) fluoxetine 40 mg capsule 40 mg PO QAM 06/02/21 06/08/21 History hydrochlorothiazide 25 mg tablet 25 mg PO QAM 06/02/21 06/08/21 History insulin glargine 100 unit/mL (3 30 unit SUBCUT HS 06/02/21 06/08/21 History mL) subcutaneous pen (Lantus Solostar U-100 Insulin) losartan 25 mg tablet 25 mg PO QAM 06/02/21 06/08/21 History metformin 500 mg tablet 1,000 mg PO QAM 06/02/21 06/08/21 History Patient History Medical History CKD (chronic kidney disease), stage III Depression with anxiety Diabetes mellitus, type 2 IDDM Diabetic nephropathy associated with type 2 diabetes mellitus Hyperlipidemia Hypertension Hypothyroidism Pt denies TSH WNL in 10/2020- patient not on thyroid meds Restless legs syndrome (RLS) Status post gamma knife treatment (~2002) Trigeminal neuralgia (~2002) Surgical History H/O arthroscopy of knee left H/O vasectomy History of adenoidectomy History of cardiac cath (~2018) no stents. History of carpal tunnel surgery left History of cataract surgery bilateral History of tonsillectomy Family History Mother Diabetes Type 2 diabetes mellitus Hypercholesteremia Sister Diabetes Hypercholesteremia Hypertension Father Stomach cancer Myocardial infarction Cancer Other Family history non-contributory No family history of adverse response to anesthesia Denies family history of Ovarian cancer Prostate cancer Breast cancer Social History Smoking Status: Never smoker Tobacco Type: Cigarettes Age Started Using Tobacco: 14; Age Quit Using Tobacco: 50; Second Hand Exposure: No; Do You Dip or Chew Tobacco: No; Tobacco Cessation Education Requested by Patient: No Hx Alcohol Use: No Hx Substance Use: No Preferred Language: Iraqi Communication Ability: Effective Visual Impairment: Limited Hearing Ability: Hard of Hearing Title Agent Required: No Beliefs That Will Affect Care: None marital status: Current Living Situation: Spouse current occupational status: retired How many Children do You have: 1 Other Information That Helps Us Care for You: No Feels Safe at Home: No Is there a partner from a previous relationship who is making you feel unsafe now?: No Any Concerns about Your Family Situation: No Would You Like to Speak to Someone About Your Situation: No Safety Concerns: Feels Safe At This Time Childhood Exposure to Second-Hand Smoke: Yes (Father smoked ) Diet Comment: Regular diet caffeine: Yes (Coffee ) during the past year weight has: decreased > 10 lbs Dental Care, Regularly: Yes Physical Activity Frequency: Does not Exercise Seatbelt Use: sometimes Sunscreen Use: No Do you think of yourself as: straight/heterosexual Assistive Devices: None Review of Systems Constitutional: no fever and no chills Respiratory: no dyspnea Gastrointestinal: no nausea, no vomiting, no change in bowel habits and no melena Genitourinary: no problem reported Integumentary: + rash Physical Exam Physical Exam: awake/alert Constitutional: no acute distress Gastrointestinal (Abdomen): Inspection/Auscultation: abdomen not distended Percussion/Palpation: abdomen nontender and + abdomen not soft Skin: + rash Results & Data ([facility]) Vital Signs (Past 12 Hours) Vital Signs Temp Pulse Pulse Resp BP BP Pulse Ox 06/09/21 07:14 36.6 C 58 L 16 136/72 97 06/09/21 03:19 36.8 C 58 L 16 164/71 H 99 06/09/21 00:23 37.1 C 79 16 164/65 H 98 06/09/21 00:22 37.1 C 79 16 164/65 H 98 06/09/21 00:13 82 Diagnostic Findings PET/CT HISTORY: COLORECTAL CANCER TECHNIQUE: PET/CT was performed from the base of the skull through the pelvis following the intravenous administration of 12.4 mCi of F18-FDG. Non-contrast CT imaging was performed over the same range without breath-hold for attenuation correction of PET images and anatomic correlation, but not for primary interpretation as it is not of standard diagnostic quality. CT DOSE: COMPARISON: Outside hospital abdomen and pelvis CT 05/08/2021. FINDINGS: HEAD AND NECK: There is no FDG-avid disease or significant lymphadenopathy in the imaged portions of the head and the neck. CHEST: There is a 1.8 x 0.9 cm FDG avid subcarinal lymph node on image 94. This demonstrates an SUV max of 3.8. There is a subcentimeter FDG avid right hilar lymph node demonstrating an SUV max of 3.1 on image 102. This measures approximately 8 mm. A 3 mm subpleural nodule within the lingula on image 101. No associated FDG uptake. However, this is likely below the threshold for PET imaging. No FDG avid or suspicious pulmonary nodules identified. ABDOMEN/PELVIS: Below the diaphragm, tracer is distributed physiologically in the gastrointestinal and genitourinary tracts. No hepatic, splenic, or adrenal masses identified. Multiple scattered ill-defined soft tissue masses seen primarily within the retroperitoneal/perinephric locations. These ill-defined soft tissue masses are also seen scattered throughout the mesentery and anterior omentum within the lower mid pelvis abutting the bladder dome. The dominant anterior omental lesion abutting the bladder dome is best seen on image 236 and measures 5.0 x 3.0 cm. This demonstrates an SUV max of 10.5. Dominant serosal implant as seen on image 292 and abuts the mid sigmoid colon. This measures 2.9 cm and demonstrates an SUV max of 9.1. There is also mild right hydronephrosis secondary to an infiltrative soft tissue mass within the right renal sinus. MUSCULOSKELETAL: There is no FDG-avid or destructive bone lesion. IMPRESSION: 1. Multiple scattered ill-defined soft tissue mass is seen throughout the abdomen and pelvis most pronounced within the retroperitoneal/perinephric spaces. There is also an FDG avid subcarinal lymph node and a single FDG avid right hilar lymph node. This could be secondary to metastatic disease of unknown primary or possibly lymphoma. 2. There is mild right hydronephrosis secondary to the infiltrative soft tissue mass within the right renal sinus. ACT 112: Negative or not required by law. Electronically signed by: Cabrera Hammer M.D. 05/25/2021 2:21 PM PG Care Time/CCT Total # of Minutes Spent Total Time Spent with Patient: Total time spent is greater than 50% in coordination of care (as documented) at patient's floor/unit and/or counseling patient: Coding Level of Care Code 14290 Initial Inpt Care Lvl 1 Diagnoses Intraabdominal mass R19.00 Thrombocytopenia D69.6
[2021-06-09] MEDS: INSULIN ASPART 100 UNITS/ML 3 ML PEN SC SCH ×3 (12:37→19:56)
[2021-06-09] MEDS ORDERED: IMMUNE GLOBULIN (HUMAN) SOLN IV ONE (18:00)
[2021-06-09] MEDS ORDERED: MELATONIN 3 MG TAB PO PRN (23:07)
[2021-06-10] MEDS: IMMUNE GLOBULIN(HUMAN) 10% 100 ML IV SCH ×5 (01:02→06:17)
[2021-06-10] MEDS: INSULIN ASPART 100 UNITS/ML 3 ML PEN SC SCH ×2 (07:53→12:41)
[2021-06-10] MEDS: CARBIDOPA/LEVODOPA 25/100MG TAB PO SCH (07:55)
[2021-06-10] MEDS: LOSARTAN POTASSIUM 25 MG TAB PO SCH (07:55)
[2021-06-10] MEDS: hydroCHLOROthiazide 25 MG TAB PO SCH (07:55)
[2021-06-10] MEDS: ATORVASTATIN 40 MG TAB PO SCH (07:55)
[2021-06-10] MEDS: buPROPion XL 300 MG TABCR PO SCH (07:55)
[2021-06-10] MEDS: FLUoxetine HCL 20 MG CAP PO SCH (07:55)
--- NOTE | 2021-06-10 08:14 | Hospitalist Progress Note ---
Date of Service June 10, 2021 Assessment & Plan Admission and Anticipated Discharge Date Admission Date: June 08, 2021 Results & Data Results & Data ([facility]) Vital Signs (Past 12 Hours) Vital Signs Temp Pulse Pulse Pulse Resp BP BP 06/10/21 07:50 36.3 C L 61 18 143/76 H 06/10/21 07:04 59 L 06/10/21 03:57 36.5 C 75 20 162/73 H 06/10/21 00:15 60 06/09/21 22:59 36.5 C 56 L 16 132/63 Pulse Ox 06/10/21 07:50 98 06/10/21 07:04 06/10/21 03:57 95 06/10/21 00:15 06/09/21 22:59 97
[2021-06-10 08:38] LABS: Hematocrit (blood only) 35.6 % (42-52); Hemoglobin 12.2 g/dL (14.0-18.0); Mean Corpuscular Hemoglobin 30.1 pg (25-34); Mean Corpuscular Hgb Conc 34.3 g/dL (32-36); Mean Corpuscular Volume 87.9 fL (80-100); Mean Platelet Volume 9.8 fL (7.4-10.4); Platelet Count 14 K/uL (130-400); RDW Coefficient of Variation 14.1 % (11.5-14.5); RDW Standard Deviation 45.6 fL (36.4-46.3); Red Blood Count 4.05 M/uL (4.7-6.1); White Blood Count 3.02 K/uL (4.8-10.8)
[2021-06-10 08:47] LABS: Basophils # (auto) 0.02 K/uL (0-0.2); Basophils % (auto) 0.7 %; Eosinophils % (auto) 3.3 %; Immature Granulocytes # (auto) 0.01 K/uL (0.00-0.02); Immature Granulocytes % (auto) 0.3 %; Lymphocytes # (auto) 0.61 K/uL (1.2-3.4); Lymphocytes % (auto) 20.2 %; Monocytes # (auto) 0.33 K/uL (0.11-0.59); Monocytes % (auto) 10.9 %; Neutrophils # (auto) 1.95 K/uL (1.4-6.5); Neutrophils % (auto) 64.6 %
[2021-06-10 08:59] LABS: BUN Creatinine Ratio 14.6 (10-20); Calcium 9.1 mg/dl (8.5-10.1); Creatinine Clr Calc Pharmacy 88.1 ml/min; Est GFR (African American) 87.8 ml/min; Est GFR (Non-African American) 75.8 ml/min; Potassium 3.7 mmol/L (3.5-5.1)
--- NOTE | 2021-06-10 10:22 | Surgery Progress Note ---
Date of Service June 10, 2021 Assessment & Plan (1) Intraabdominal mass: Plan: 70 y/o male with likely lymphoproliferative disorder awaiting biopsy, now with acute ITP on IVIG. Plt improving but still low. No surgical intervention until plt >50k unlikely to have surgery until next week can make npo after midnight in case plt >50k tomorrow further IVIG per Dr. Junior Patient may be discharged from surgery standpoint if he can have outpatient infusions and we will attempt surgery next wed call with questions or concerns (2) Acute ITP: Admission and Anticipated Discharge Date Admission Date: June 08, 2021 Subjective 70 y/o male with likely lymphoproliferative disorder, had been scheduled for dx laparoscopy with biopsy with me today, however admitted for ITP. IVIG given, plt 14k this morning. Oncology asking for port at same time as biopsy. Patient anxious to go home. Physical Exam Respiratory: normal respiratory effort, lungs clear to auscultation Cardiovascular: RRR, no murmur, no edema Gastrointestinal (Abdomen): normal bowel sounds, soft, nontender, no hepatosplenomegaly Results & Data ([facility]) Vital Signs (Past 12 Hours) Vital Signs Temp Pulse Pulse Pulse Resp BP BP 06/10/21 07:50 36.3 C L 61 18 143/76 H 06/10/21 07:04 59 L 06/10/21 03:57 36.5 C 75 20 162/73 H 06/10/21 00:15 60 06/09/21 22:59 36.5 C 56 L 16 132/63 Pulse Ox 06/10/21 07:50 98 06/10/21 07:04 06/10/21 03:57 95 06/10/21 00:15 06/09/21 22:59 97 Laboratory Results Laboratory Results - last 24 hr 06/09/21 06/09/21 06/09/21 11:28 16:32 19:54 WBC RBC Hgb Hct MCV MCH MCHC RDW Std Deviation RDW Coeff of Beck Plt Count MPV Immature Gran % (Auto) Neut % (Auto) Lymph % (Auto) Rhea % (Auto) Eos % (Auto) Baso % (Auto) Neut # (Auto) Lymph # (Auto) Rhea # (Auto) Eos # (Auto) Baso # (Auto) Immature Gran # (Auto) Sodium Potassium Chloride Carbon Dioxide Anion Gap BUN Creatinine Est Cr Clr Drug Dosing Est GFR ( Amer) Est GFR (Non-Af Amer) BUN/Creatinine Ratio Glucose POC Glucose 101 H 120 H 147 H Calcium 06/10/21 06/10/21 06/10/21 07:31 08:15 08:15 WBC 3.02 L RBC 4.05 L Hgb 12.2 L Hct 35.6 L MCV 87.9 MCH 30.1 MCHC 34.3 RDW Std Deviation 45.6 RDW Coeff of Beck 14.1 Plt Count 14 L* D MPV 9.8 Immature Gran % (Auto) 0.3 Neut % (Auto) 64.6 Lymph % (Auto) 20.2 Rhea % (Auto) 10.9 Eos % (Auto) 3.3 Baso % (Auto) 0.7 Neut # (Auto) 1.95 Lymph # (Auto) 0.61 L Rhea # (Auto) 0.33 Eos # (Auto) 0.10 Baso # (Auto) 0.02 Immature Gran # (Auto) 0.01 Sodium 136 Potassium 3.7 Chloride 104 Carbon Dioxide 28 Anion Gap 4.0 BUN 15 Creatinine 0.99 Est Cr Clr Drug Dosing 88.1 Est GFR ( Amer) 87.8 Est GFR (Non-Af Amer) 75.8 BUN/Creatinine Ratio 14.6 Glucose 152 H POC Glucose 109 H Calcium 9.1 PG Care Time/CCT Total # of Minutes Spent Total Time Spent with Patient: Total time spent is greater than 50% in coordination of care (as documented) at patient's floor/unit and/or counseling patient: Coding Level of Care Code 61206 Inpt Consult Level 3 Diagnoses Intraabdominal mass R19.00 Acute ITP D69.3
--- NOTE | 2021-06-10 13:27 | Discharge Summary ---
Date of Service June 10, 2021 Admission HPI Per Admitting Provider Corbin Cueva is a 70 yo male with PMHx significant for T2DM (A1c 5.7 on 06/02/2021), CKDIII, HTN, HLD, Hypothyroidism and RLS who presents to [facility] on 06/08 for generalized purpuric rash x2 days. The patient has also had ~30 pound unintentional weight loss over the course of ~11 months. Denies fevers/night sweats. Denies previous occurrence of a rash such as this. The patient has been seeing Dr. Junior for work-up of generalized lymphadenopathy - he was scheduled to have PET scan and diagnostic laparoscopy for further evaluation. The patient reports acute-onset generalized purpuric rash covering his torso, extremities (including hands/feet) and oral mucosa. He reports that some of the lesions have started bleeding although very mildly, and quickly clotted off. Denies pain or pruritus of the lesions. Patient is not on any blood thinners, denies recent changes in medications, and denies N/V/hematemesis, melena/hematochezia, or signs of active bleeding. He does admit to getting bitten by a tick several days ago. Patient's father had gastric cancer and he reports that his brother "may have been diagnosed" with leukemia although he is unsure. The patient has a 35 pack year smoking history but quit 20 years ago. In the ED the patient was afebrile/hemodynamically stable on room air. Laboratory evaluation was significant for severe thrombocytopenia (plts 1K). PT/PTT/INR were WNL and Hgb appeared to be at relative baseline (13.4). Head CT was negative for intracranial bleed. Principal Diagnosis Acute ITP Discharge Exam General: A&Ox3. NAD. Cooperative. HEENT: Atraumatic, normocephalic. Pulm: CTAB A&P. -wheezes, -rales, -rhonchi. Symmetrical chest rise. No increase work of breathing. No respiratory distress. Cardiac: RRR, -mrg. Radial pulses intact and symmetrical. No LE edema. Abdominal: soft, non-tender, non-distended, BS x 4 Skin: non-blanching purpura are present on chest/back/abdomen and extremities Discharge Data Allergies Allergy/AdvReac Type Severity Reaction Status Date / Time lisinopril AdvReac Intermediate Cough Verified 06/08/21 09:24 ropinirole AdvReac Intermediate thoughts Verified 06/08/21 09:24 of gambling Consultations 06/08/21 18:15 ED Decision to Admit Stat 06/08/21 23:59 Consult General Surgery Routine Consult Hematology Routine Ordered Studies 06/08/21 17:54 CT head/brain wo con Stat Hospital Course (1) Thrombocytopenia: Corbin Cueva is a 70 yo male with PMHx significant for T2DM (A1c 5.7 on 06/02/2021), CKDIII, HTN, HLD, Hypothyroidism and RLS who presents to [facility] on 06/08 for generalized purpuric rash x2 days. Thrombocytopenia; Purpuric Rash Two-day history of such, with platelets of 1K on admission, no signs of active bleeding. Suspect ITP due to underlying hematologic malignancy such as CLL or Hodgkin's lymphoma. Less likely due to tick-borne illness. - Heme/Onc consulted - appreciate recs - received IVIG 1gm/kg x2 while in hospital--Plt increased from 1 to 14 at DC - Pt discharged with prednisone 50mg PO BID until otherwise instructed by Heme/Onc - He will follow with Dr. Junior one week after DC - CBC every 3 days as outpatient - hold home Aspirin Intra-Abdominal Masses Per CT A/P on 05/08 and PET/CT on 05/25. Multiple scattered masses throughout abdomen/pelvis, concerning for lymphoproliferative process such as lymphoma, vs metastatic disease. - Surgery consulted for diagnostic laparoscopy and possible Mediport placement - Will hold on procedure until thrombocytopenia has improved to acceptable levels for surgery - Will follow as outpatient in 2 weeks for further evaluation - Heme/Onc consulted as above T2DM Controlled, last A1c 5.7 on 06/02/2021. - SSI while hospitalized - home meds held Depression/Anxiety - continued home Bupropion/Fluoxetine HTN - continued home Losartan/HCTZ HLD - continued home Atorvastatin RLS - continued home Sinemet Dispo: Home - Self Care (2) Intraabdominal mass: (3) Chronic kidney disease, stage 3a: (4) Diabetes mellitus: (5) Depression with anxiety: (6) Dyslipidemia: (7) Hypertension: (8) Hypothyroidism: (9) Restless legs syndrome (RLS): Total Time Total Time Spent Total Time Spent (In Minutes): see attending attestation Discharge Plan Discharge Items Patient Disposition: Home - Self-Care Reason For Visit: PURPURA, THROMBOCYTOPENIA Discharge Diagnosis: Immune thrombocytopenic purpura Activity: Per Instructions section Non-emergency contact: Surgeon and Oncologist Call non-emergency contact if: you have any medication questions and your symptoms worsen Follow-up/Referrals: Jaime Lyle MD [Primary Care Provider] - 06/22/21 8:00 am Dayton Junior DO [Physician] - (DR JUNIOR'S OFFICE WILL CALL YOU TO SCHEDULE A DISCHARGE FOLLOW-UP APPOINTMENT WITHIN 1 WEEK.) Home Moreno DO, FACS [Physician] - 06/22/21 3:00 pm Diet: Carb Consistent or DM2 Ambulatory Orders: Complete Blood Count with Diff (Timed) Timeframe: 6 Days Facility: [facility] - Location: [address] Ordered By: Eddie Aviles Complete Blood Count with Diff (Timed) Timeframe: 3 Days Location: Determined by Patient Ordered By: Eddie Aviles Complete Blood Count with Diff (Timed) Timeframe: 3 Days Facility: [facility] - Location: [address] Ordered By: Eddie Aviles Addtl Attending Provider Instructions: You were admitted to [facility] due to generalized rash. You were found to have a condition called Immune Thrombocytopenic Purpura wherein your immune system sequesters and destroys your own platelets. As a result, your platelets were severely reduced. Hematology/Oncology was consulted and recommended treating you with IVIG. You received two doses of this, which did help to increase your platelet count, though it did remain low. According to Heme/Onc recommendations, we will thus be discharging you on oral steroids to continue to increase your platelets in the outpatient setting. You will take prednisone 50mg twice daily (morning and night) until otherwise instructed by Dr. Junior. You will follow up with him in one week at his outpatient office. You will need to get blood work done to check your platelet levels every 3 days after discharge. Please contact Dr. Junior's office if you have any questions. Additionally, you will follow up with General Surgery in their clinic in 2 weeks for further discussion of your diagnostic laparoscopy. Please call their office to set this appointment up. As discussed, it is important that you take care not to have any falls, trauma, or put yourself at risk for situations that could lead to bleeding as your low platelet count will make it very difficult for the bleeding to stop. Please continue to take your regular home medication except for aspirin. Please do not take this as it does thin your blood and may make it more likely that you will bleed. If you develop any concerning symptoms or show any signs of active bleeding, including blood in your stool or vomiting blood, please return to the hospital for emergency evaluation. Pending Studies at Discharge: No Stand-Alone Forms: My [facility], Smoking Cessation Medications and DC Order Prescriptions: New prednisone 50 mg tablet 50 mg PO BID 14 Days Qty: 28 RF: 0 Continued (DME) OneTouch Verio test strips Strip See Rx Instructions .ROUTE .MEDSUPPLY Qty: 100 RF: 7 bupropion HCl 300 mg tablet extended release 24 hr 300 mg PO QAM Qty: 90 RF: 3 insulin aspart U-100 [Novolog U-100 Insulin aspart] 100 unit/mL solution 1 sliding scale dose subcut USEASDIRECTD RF: 0 (DME) pen needle, diabetic [BD Ultra-Fine Yojana Pen Needle] 32 gauge x 5/32" needle See Dose Instructions .ROUTE .MEDSUPPLY Qty: 100 RF: 3 fluoxetine 40 mg capsule 40 mg PO QAM RF: 0 metformin 500 mg tablet 1,000 mg PO QAM RF: 0 atorvastatin 80 mg tablet 80 mg PO QAM RF: 0 losartan 25 mg tablet 25 mg PO QAM RF: 0 carbidopa-levodopa [Sinemet] 25-100 mg tablet 3 tab PO HS RF: 0 Lantus Solostar U-100 Insulin 100 unit/mL (3 mL) insulin pen 30 unit subcut HS RF: 0 hydrochlorothiazide 25 mg Tablet 25 mg PO QAM RF: 0 Discontinued aspirin [Aspirin Low Dose] 81 mg tablet,delayed release (DR/EC) 81 mg PO QAM RF: 0 Discharge Orders: Discharge Order (Routine); Ordered 06/10/21 Ordered By: Eddie Aviles Admission Data Admit Date/Time: 06/08/21 20:57 Attending Provider: Diamond Kim Admit Provider: Hermes Maguire Primary Care Provider: Jaime Lyle Other Providers: Miko Alfonso ; Dayton Junior V. ; Home Moreno Other Interventions: Discharge Summary Assessment (RN) Last Done: 06/10/21 12:57 Supervising Physician Co-Signing Physician Notes Patient seen and examined with PGY-2 Dr. Nicole. Agree with history, exam findings, assessment and plan of care as outlined. In brief, Mr. Singh is a 70 year old male with hx of DM2, CKD, HTN, hypothyroid and history of possible lymphoproliferative process (followed by Dr. Junior) admitted with ITP, platelet count of 1,000. Overall, feeling well. Feels that the purpura and areas of ecchymosis are improving. No bleeding. Vital signs and nursing notes reviewed. Well appearing. [place] of the lower extremities. One obvious purpuric lesion of the lip. Labs and imaging reviewed. 1. ITP. Started IVIG. Platelet count improved to 14,000. No bleeding. Received IVIF. Will be discharged on prednisone 50mg BID. 2. Intraabdominal mass. ?lymphoproliferative process. At some point, will have diagnostic laparoscopy for tissue diagnosis with general surgery and can have mediport placed at the same time. He can contact the general surgery office as an outpatient to have this done once his platelet count is about 50k. 3. DM. Holding metformin. Insulin basal-bolus while here. A1C earlier this month was 5.7%. 4. HTN. Continue home losartan, HCTZ. 5. HLD. Continue home atorvastatin. Dispo: Discharge home today. I personally spent 25 minutes discharge planning for this patient. Resident Activity Tracking Resident Involvement: Resident Care Provided Care Provided: Adult [facility]
== END 2021-06-10 13:28 | disposition home or self-care (01) | DRG 813 ==
LOC: ED 14:41 → SUATTDRO 20:57 → 2W 20:57

== ENCOUNTER 2022-12-29 14:39 | Inpatient (IN) ==
[2022-12-29 15:45] LABS: Appearance Urine Clear (Clear); Bilirubin Urine Negative (Negative); Blood Urine Negative (Negative); Color Urine Yellow; Glucose Urine UA Negative (Negative); Ketones Urine Negative (Negative); Leukocyte Esterase Urine Negative (Negative); Nitrite Urine Negative (Negative); Protein Urine Negative (Negative); Specific Gravity Urine 1.045 (1.000-1.030); Urobilinogen Urine Negative (Negative); pH Urine 7.5 (4.5-7.5)
[2022-12-29 16:02] LABS: Basophils # (auto) 0.06 K/uL (0-0.2); Basophils % (auto) 0.9 %; Eosinophils # (auto) 0.11 K/uL (0-0.50); Eosinophils % (auto) 1.6 %; Hematocrit (blood only) 37.8 % (42.0-52.0); Hemoglobin 13.2 g/dl (14.0-18.0); Immature Granulocytes # (auto) 0.15 K/uL (0.01-0.20); Immature Granulocytes % (auto) 2.2 %; Lymphocytes # (auto) 1.33 K/uL (1.2-3.4); Lymphocytes % (auto) 19.1 %; Mean Corpuscular Hemoglobin 29.7 pg (25.0-34.0); Mean Corpuscular Hgb Conc 34.9 g/dL (32.0-36.0); Mean Corpuscular Volume 84.9 fL (80.0-100.0); Mean Platelet Volume 8.6 fL (9.4-12.4); Monocytes # (auto) 0.51 K/uL (0.11-0.59); Monocytes % (auto) 7.3 %; Neutrophils % (auto) 68.9 %; Platelet Count 410 K/uL (130-400); RDW Coefficient of Variation 13.3 % (11.5-14.5); RDW Standard Deviation 41.4 fL (36.4-46.3); Red Blood Count 4.45 M/uL (4.70-6.10); White Blood Count 6.96 K/ul (4.8-10.8)
[2022-12-29] MEDS ORDERED: SODIUM CHLORIDE 0.9% 1000ML 1,000 ML IV ONE (16:21)
[2022-12-29] MEDS ORDERED: ONDANSETRON INJ 2 MG/ML 2 ML VIAL IV STA (16:22)
--- NOTE | 2022-12-29 16:29 | Emergency Department Note ---
Impression & Plan Cholecystitis, Vomiting, JASMYNE (acute kidney injury), Hypokalemia ED Provider Note NAME: OLU LU AGE: 72 SEX: M : 1950 ARRIVES VIA: Walk-In INFORMANT: [Patient] ED PROVIDER(S): [Kolton Mcgregor MD] CHIEF COMPLAINT: Abnormal testing HISTORY OF PRESENT ILLNESS: The patient is a 72-year-old male who states that he has had 3 weeks of nausea, vomiting and diarrhea. He actually is having more diarrhea now than he is vomiting. The patient went to the [place] ED last week and was felt safe for discharge home. Today, he saw his doctors office and a CT scan of the abdome n/pelvis was done outpatient. The CT showed potential cholecystitis. He was sent to the ED for work-up. The patient denies any abdominal pain, he has not had fever. No blood in the vomit or stool. He states he just always seems to be very nauseated. He cannot recall having any sick contacts, he did not eat any bad food. He was never told he had an issue with his gallbladder in the past. He has had kidney stones though previously. PMHx/PSHx: See Below SOCIAL HISTORY: See Below. PHYSICAL EXAM: GENERAL: Patient is in no acute distress. HEENT: No acute trauma, normocephalic atraumatic, mucous membranes moist, no nasal congestion. NECK: No stridor, no adenopathy, no meningismus, trachea is midline. LUNGS: Clear to auscultation bilaterally, no wheeze, no rhonchi, breath sounds equal. HEART: Without murmurs gallops or rubs, regular rate and rhythm. ABDOMEN: Soft, nontender, bowel sounds positive, no peritonitis. Absolutely no pain to palpate the right upper quadrant or epigastrium. EXTREMITIES: No cyanosis or edema, full range of motion of all the joints without pain or difficulty, no signs for acute trauma. NEUROLOGIC: Oriented x 3, no acute motor or sensory deficits, no focal weakness. SKIN: No rash, potential very mild jaundice, no diaphoresis. DIFFERENTIAL DIAGNOSIS: Acute cholecystitis, biliary colic, pancreatitis, biliary obstruction, viral or foodborne illness, renal or liver failure, electrolyte balance, bacterial or viral intestinal infection, among others. EMERGENCY DEPARTMENT COURSE/PROCEDURES: Prior/Outside records reviewed: Recent outpatient CT imaging. MEDICAL DECISION MAKING: There is no leukocytosis. No concerning anemia. Platelet count slightly elevated. Renal panel testing shows hypokalemia with a potassium of 2.9. There was some mild acute kidney injury with a creatinine elevation of 1.41. Calcium was mildly high at 10.2. Alk phos was elevated, the remaining liver enzymes were unremarkable. No evidence for pancreatitis. The patient appeared to be in a euthyroid state. Urinalysis did not show infection. COVID, influenza and RSV test were negative. Gallbladder ultrasound did suggest acute cholecystitis, no gallstones were seen, no significant biliary ductal dilatation. I did review the CT imaging report that was performed as an outpatient. Acute cholecystitis was suggested. The patient received IV saline, 1 L. He received IV Zofran. He was given IV Zosyn as antibiotic coverage. He received IV potassium. I did speak with Dr. Moreno of general surgery. No acute surgical intervention required this evening. The patient will be hospitalized on the medicine service. I spoke with the patient, I talked to case management. The on-call hospitalist was consulted. In short, the patient appears to have acute cholecystitis although, he does not have any pain and there are no gallstones. Further work-up and care was felt warranted. DISPOSITION: Patient's presentation and findings warrant a hospital stay. 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) Thrombocytopenia Trigeminal neuralgia (~2002) Surgical History H/O arthroscopy of knee H/O vasectomy History of adenoidectomy History of cardiac cath (~2018) History of carpal tunnel surgery History of cataract surgery History of removal of Port-a-Cath (10/23/21) History of tonsillectomy Port-A-Cath in place (06/24/21) S/P laparoscopic procedure (06/24/21) Family History Mother Diabetes Type 2 diabetes mellitus Hypercholesteremia Sister Diabetes Hypercholesteremia Hypertension Father Stomach cancer Myocardial infarction Cancer Other Family history non-contributory No family history of adverse response to anesthesia Denies family history of Ovarian cancer Prostate cancer Breast cancer Colorectal cancer Social History Smoking Status: Former smoker Tobacco Type: Cigarettes Age Started Using Tobacco: 14; Age Quit Using Tobacco: 50; Second Hand Exposure: No; Hx Alcohol Use: Yes Alcohol type: hard liquor Alcohol Intake Frequency: Monthly or Less Hx Substance Use: No Preferred Language: Khmer Communication Ability: Effective Visual Impairment: Limited Hearing Ability: Use of Hearing Aid Special Education Instructor Required: No Beliefs That Will Affect Care: None marital status: Current Living Situation: Spouse current occupational status: retired 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 How many Children do You have: 1 Feels Safe at Home: Yes Childhood Exposure to Second-Hand Smoke: Yes (Father smoked ) Diet Comment: Regular diet caffeine: Yes (Coffee ) during the past year weight has: decreased > 10 lbs Dental Care, Regularly: Yes Physical Activity Frequency: Does not Exercise Seatbelt Use: never Sunscreen Use: No Do you think of yourself as: straight/heterosexual Gender Identity: Male Assistive Devices: Glasses, Hearing Aid - Bilateral and Special Shoe Allergies Allergies Allergy/AdvReac Type Severity Reaction Status Date / Time lisinopril AdvReac Intermediate Cough Verified 12/29/22 17:40 ropinirole AdvReac Intermediate thoughts Verified 12/29/22 17:40 of gambling Home Meds Home Medications Medication Instructions Recorded Confirmed fluoxetine 40 mg capsule 40 mg PO QAM 06/02/21 12/29/22 aspirin 81 mg tablet,delayed 81 mg PO QAM 10/16/21 12/29/22 release (Jennifer Low Dose Aspirin) fluoxetine 20 mg capsule (Prozac) 20 mg PO QAM 08/06/22 12/29/22 Previous Rx's Medication Instructions Recorded pen needle, diabetic 32 gauge x #100 ea 05/06/19" (BD Ultra-Fine Yojana Pen Needle) bupropion HCl 300 mg 24 hr tablet, 300 mg PO QAM #90 tabs 12/23/20 extended release blood sugar diagnostic (OneTouch #100 ea 03/24/22 Verio test strips) losartan 100 mg tablet 100 mg PO DAILY #90 tabs 04/16/22 gabapentin 300 mg capsule 300 mg PO TID #270 caps 07/26/22 omeprazole 40 mg capsule,delayed 40 mg PO BID #60 caps 07/28/22 release ondansetron HCl 4 mg tablet 8 mg PO Q8H PRN nausea and 07/28/22 vomiting #30 tabs metformin 500 mg tablet 1,000 mg PO QAM #180 tabs 09/09/22 atorvastatin 80 mg tablet 80 mg PO QAM #90 tabs 09/15/22 insulin glargine 100 unit/mL (3 43 unit (0.43 mL) subcut HS #15 12/15/22 mL) subcutaneous pen (Lantus syringes Solostar U-100 Insulin) famotidine 20 mg tablet 20 mg PO BID #60 tabs 12/29/22 Results & Data (ED) Vital Signs Vital Signs - 24 hr 12/29/22 14:43 12/29/22 17:00 Temperature 36 C L Temperature Source Temporal Artery Scan Pulse Rate 82 Pulse Rate [Finger] 82 Pulse Rhythm [Finger] Regular Pulse Strength [Finger] Normal Respiratory Rate 20 16 Respiratory Effort / Characteristics Non-Labored Spontaneous Non-Labored Respiratory Depth Normal Normal Respiratory Pattern Regular Regular Blood Pressure 144/83 H Blood Pressure Mean 103 Pulse Oximetry 100 98 Oxygen Delivery Method Room Air Room Air Sepsis Recent Fever Within 48 Hours No Sepsis New/Unexplained Change in Mental Status No Sepsis Action Taken by Nursing No Action Required Home Medications Current Medication List: was personally reviewed by me Laboratory Data Attestation: I reviewed the patient's lab results. 12/29/22 15:22 12/29/22 15:22 Lab Results 12/29/22 12/29/22 12/29/22 Range/Units 15:22 15:22 15:22 WBC 6.96 (4.8-10.8) K/ul RBC 4.45 L (4.70-6.10) M/uL Hgb 13.2 L (14.0-18.0) g/dl Hct 37.8 L (42.0-52.0) % MCV 84.9 (80.0-100.0) fL MCH 29.7 (25.0-34.0) pg MCHC 34.9 (32.0-36.0) g/dL RDW Std Deviation 41.4 (36.4-46.3) fL RDW Coeff of Beck 13.3 (11.5-14.5) % Plt Count 410 H (130-400) K/uL MPV 8.6 L (9.4-12.4) fL Immature Gran % (Auto) 2.2 % Neut % (Auto) 68.9 % Lymph % (Auto) 19.1 % Glynn % (Auto) 7.3 % Eos % (Auto) 1.6 % Baso % (Auto) 0.9 % Neut # (Auto) 4.80 (1.40-6.50) K/uL Lymph # (Auto) 1.33 (1.2-3.4) K/uL Glynn # (Auto) 0.51 (0.11-0.59) K/uL Eos # (Auto) 0.11 (0-0.50) K/uL Baso # (Auto) 0.06 (0-0.2) K/uL Immature Gran # (Auto) 0.15 (0.01-0.20) K/uL Sodium 135 L (136-145) mmol/L Potassium 2.9 L (3.5-5.1) mmol/L Chloride 97 L (98-107) mmol/L Carbon Dioxide 27 (21-32) mmol/L Anion Gap 11 (3-11) BUN 31 H (6-23) mg/dl Creatinine 1.47 H (0.6-1.4) mg/dl Est Cr Clr Drug Dosing 56.6 ml/min Est GFR ( Amer) 53.7 ml/min Est GFR (Non-Af Amer) 46.3 ml/min BUN/Creatinine Ratio 21.1 H (10-20) Glucose 68 L (70-99(Fasting)) mg/dl Calcium 10.2 H (8.5-10.1) mg/dl Magnesium 1.8 (1.7-2.4) mg/dl Total Bilirubin 0.9 (0.2-1.0) mg/dl AST 36 (13-39) U/L ALT 45 (7-52) U/L Alkaline Phosphatase 227 H (34-104) U/L Total Protein 8.0 (6.0-8.3) gm/dl Albumin 4.1 (3.4-5.0) gm/dl Globulin 3.9 (2.5-4.0) gm/dl Albumin/Globulin Ratio 1.1 (0.9-2) Lipase 30 (11-82) U/L TSH 1.145 (0.300-4.500) uIu/ml Urine Color Urine Appearance (Clear) Urine pH (4.5-7.5) Ur Specific [place] (1.000-1.030) Urine Protein (Negative) Urine Glucose (UA) (Negative) Urine Ketones (Negative) Urine Blood (Negative) Urine Nitrite (Negative) Urine Bilirubin (Negative) Urine Urobilinogen (Negative) Ur Leukocyte Esterase (Negative) SARS-CoV-2 (PCR) (Negative) Influenza Type A (PCR) (Neg) Influenza Type B (PCR) (Neg) RSV (RT-PCR) (Neg) 12/29/22 12/29/22 Range/Units 15:25 16:30 WBC (4.8-10.8) K/ul RBC (4.70-6.10) M/uL Hgb (14.0-18.0) g/dl Hct (42.0-52.0) % MCV (80.0-100.0) fL MCH (25.0-34.0) pg MCHC (32.0-36.0) g/dL RDW Std Deviation (36.4-46.3) fL RDW Coeff of Beck (11.5-14.5) % Plt Count (130-400) K/uL MPV (9.4-12.4) fL Immature Gran % (Auto) % Neut % (Auto) % Lymph % (Auto) % Glynn % (Auto) % Eos % (Auto) % Baso % (Auto) % Neut # (Auto) (1.40-6.50) K/uL Lymph # (Auto) (1.2-3.4) K/uL Glynn # (Auto) (0.11-0.59) K/uL Eos # (Auto) (0-0.50) K/uL Baso # (Auto) (0-0.2) K/uL Immature Gran # (Auto) (0.01-0.20) K/uL Sodium (136-145) mmol/L Potassium (3.5-5.1) mmol/L Chloride (98-107) mmol/L Carbon Dioxide (21-32) mmol/L Anion Gap (3-11) BUN (6-23) mg/dl Creatinine (0.6-1.4) mg/dl Est Cr Clr Drug Dosing ml/min Est GFR ( Amer) ml/min Est GFR (Non-Af Amer) ml/min BUN/Creatinine Ratio (10-20) Glucose (70-99(Fasting)) mg/dl Calcium (8.5-10.1) mg/dl Magnesium (1.7-2.4) mg/dl Total Bilirubin (0.2-1.0) mg/dl AST (13-39) U/L ALT (7-52) U/L Alkaline Phosphatase (34-104) U/L Total Protein (6.0-8.3) gm/dl Albumin (3.4-5.0) gm/dl Globulin (2.5-4.0) gm/dl Albumin/Globulin Ratio (0.9-2) Lipase (11-82) U/L TSH (0.300-4.500) uIu/ml Urine Color Yellow Urine Appearance Clear (Clear) Urine pH 7.5 (4.5-7.5) Ur Specific [place] 1.045 H (1.000-1.030) Urine Protein Negative (Negative) Urine Glucose (UA) Negative (Negative) Urine Ketones Negative (Negative) Urine Blood Negative (Negative) Urine Nitrite Negative (Negative) Urine Bilirubin Negative (Negative) Urine Urobilinogen Negative (Negative) Ur Leukocyte Esterase Negative (Negative) SARS-CoV-2 (PCR) NEGATIVE (Negative) Influenza Type A (PCR) Negative (Neg) Influenza Type B (PCR) Negative (Neg) RSV (RT-PCR) Negative (Neg) Administered Medications Potassium Chloride (K Jagjit / Wtr) 10 meq in 100 mls @ 100 mls/hr IV Q1H ALONZO; Protocol Stop: 12/29/22 18:44 Last Admin: 12/29/22 18:07 Dose: 100 mls/hr Documented By: OAM Discontinued Medications Sodium Chloride (Nss 1000ml) 1,000 mls @ 999 mls/hr IV .Q1H1M ONE Stop: 12/29/22 17:21 Last Infusion: 12/29/22 18:09 Dose: 0 mls/hr Documented By: Admin: 12/29/22 16:28 Dose: 999 mls/hr Documented By: GIOVANNY Piperacillin Sod/Tazobactam Sod (Zosyn) 4.5 gm in 120 mls @ 240 mls/hr IV NOW ONE Stop: 12/29/22 17:54 Last Infusion: 12/29/22 18:10 Dose: 0 mls/hr Documented By: Admin: 12/29/22 17:40 Dose: 240 mls/hr Documented By: GIOVANNY Ondansetron HCl (Ondansetron Inj 2 Mg/Ml 2 Ml Vial) 4 mg IV NOW STA Stop: 12/29/22 16:23 Last Admin: 12/29/22 16:28 Dose: 4 mg Documented By: GIOVANNY Imaging Data Radiologist's Impression: Gallbladder Ultrasound 12/29/22 16:21 ABDOMINAL ULTRASOUND, RIGHT UPPER QUADRANT HISTORY: Abnormal CT at outside facility. Follow-up.. COMPARISON: Abdomen and pelvis CT outside hospital 05/08/2021. FINDINGS: Pancreas: The pancreatic head is obscured by overlying bowel gas. The remaining portions of the pancreas are within normal limits. Liver: Unremarkable. Gallbladder: Mildly thickened and irregular gallbladder wall measures up to 5 mm. There is sludge within the gallbladder. Surrounding echogenic soft tissue could represent inflammatory change. However, the technologist documented a negative sonographic Upton sign. CBD: 5 mm. Right kidney: No hydronephrosis. IMPRESSION: 1. Irregular and thickened gallbladder wall with gallbladder sludge and suggestion of surrounding inflammatory change. However, the technologist documented a negative sonographic Upton sign. A developing acute cholecystitis remains the diagnosis of exclusion given the irregular wall. Surgical consultation recommended. 2. Normal caliber common bile duct. ACT 112: Negative or not required by law. Electronically signed by: Cabrera Hammer M.D. 12/29/2022 5:09 PM Abdominal and pelvis CT with IV and oral contrast: Findings compatible with acalculus cholecystitis. Mild thickening of the second and third portion of the duodenum consistent with duodenitis. 16 x 12 mm heterogeneous partially cystic mass in the right kidney. Recommend follow-up renal ultrasound. Discharge Plan Visit Data Chief Complaint: Illness Stated Complaint: GAL BLADDER TROUBLES ED Provider: Kolton Mcgregor Discharge Problem: Cholecystitis, Vomiting, JASMYNE (acute kidney injury), Hypokalemia Patient Disposition: Admitted As Inpatient Condition: Fair Forms Stand Alone Forms: [facility] Prescriptions Prescriptions: No Action (DME) OneTouch Verio test strips Strip See Rx Instructions .ROUTE .MEDSUPPLY Qty: 100 7RF Rx Instructions: As directed Test 3x/day E11.9 gabapentin 300 mg capsule 300 mg PO TID Qty: 270 2RF fluoxetine [Prozac] 20 mg capsule 20 mg PO QAM Rx Instructions: TOTAL DOSE 60 MG--TAKES WITH 40 MG CAP. metformin 500 mg tablet 1,000 mg PO QAM Qty: 180 3RF atorvastatin 80 mg tablet 80 mg PO QAM Qty: 90 1RF insulin glargine [Lantus Solostar U-100 Insulin] 100 unit/mL (3 mL) insulin pen 43 unit subcut HS Qty: 15 3RF famotidine 20 mg tablet 20 mg PO BID Qty: 60 0RF ondansetron HCl 4 mg tablet 8 mg PO Q8H PRN (Reason: nausea and vomiting) Qty: 30 1RF omeprazole 40 mg capsule,delayed release(DR/EC) 40 mg PO BID Qty: 60 2RF bupropion HCl 300 mg tablet extended release 24 hr 300 mg PO QAM Qty: 90 3RF (DME) pen needle, diabetic [BD Ultra-Fine Yojana Pen Needle] 32 gauge x 5/32" needle See Dose Instructions .ROUTE .MEDSUPPLY Qty: 100 3RF Dose Instruction: As directed Rx Instructions: As directed losartan 100 mg tablet 100 mg PO DAILY Qty: 90 3RF fluoxetine 40 mg capsule 40 mg PO QAM Rx Instructions: TOTAL DOSE 60 MG--TAKES WITH 20 MG CAP. aspirin [Jennifer Low Dose Aspirin] 81 mg Tablet,Delayed Release (Dr/Ec) 81 mg PO QAM Referrals Referrals: Jaime Lyle MD [Primary Care Provider] -
[2022-12-29 16:39] LABS: Albumin Globulin Ratio 1.1 (0.9-2); Albumin Level 4.1 gm/dl (3.4-5.0); BUN Creatinine Ratio 21.1 (10-20); Bilirubin,Total 0.9 mg/dl (0.2-1.0); Calcium 10.2 mg/dl (8.5-10.1); Creatinine Clr Calc Pharmacy 56.6 ml/min; Est GFR (African American) 53.7 ml/min; Est GFR (Non-African American) 46.3 ml/min; Globulin 3.9 gm/dl (2.5-4.0); Potassium 2.9 mmol/L (3.5-5.1)
--- NOTE | 2022-12-29 17:10 | Ultrasound Report ---
ABDOMINAL ULTRASOUND, RIGHT UPPER QUADRANT HISTORY: Abnormal CT at outside facility. Follow-up.. COMPARISON: Abdomen and pelvis CT outside hospital 05/08/2021. FINDINGS: Pancreas: The pancreatic head is obscured by overlying bowel gas. The remaining portions of the pancr eas are within normal limits. Liver: Unremarkable. Gallbladder: Mildly thickened and irregular gallbladder wall measures up to 5 mm. There is sludge wit hin the gallbladder. Surrounding echogenic soft tissue could represent inflammatory change. However, the technologist documented a negative sonographic Upton sign. CBD: 5 mm. Right kidney: No hydronephrosis. IMPRESSION: 1. Irregular and thickened gallbladder wall with gallbladder sludge and suggestion of surrounding inf lammatory change. However, the technologist documented a negative sonographic Upton sign. A developi ng acute cholecystitis remains the diagnosis of exclusion given the irregular wall. Surgical consulta tion recommended. 2. Normal caliber common bile duct. ACT 112: Negative or not required by law. Electronically signed by: Cabrera Hammer M.D. 12/29/2022 5:09 PM
[2022-12-29] MEDS ORDERED: PIPERACILLIN/TAZOBACTAM 4.5 GM/120 ML BAG IV ONE (17:25)
[2022-12-29 17:28] LABS: Influenza A virus by PCR Negative (Neg); Influenza B virus by PCR Negative (Neg); RSV by PCR Negative (Neg); SARS CoV2 RNA(COVID-19) Ceph NEGATIVE (Negative)
--- NOTE | 2022-12-29 17:45 | History & Physical Report ---
Date of Service December 29, 2022 Assessment & Plan (1) Nausea & vomiting: Plan: Diarrhea/Poor appetite, ?Acute cholecystitis Continue Zosyn Gallbladder ultrasound irregular and thickened gallbladder with sludge and surrounding inflammatory change, although negative Upton's. Normal caliber CBD. No leukocytosis Alk phos 227, AST/ALT/bilirubin normal Admitting BSG 68 - Discussed with Dr. Moreno by. Continue medical tx at this time, will follow. Surgery consulted - CT [place]: Acalculous cholecystitis, was d/andrew - No hx cardiac disease, no kidney disease, no hx of blood clots, no hx blood thinner use. No pulmonary disease. JASMYNE, hypokalemia Creatinine baseline normally less than 1.2, admitting creatinine 1.47 In the setting of nausea/vomiting Potassium repleted, trend every 6 hours HTN - Takes aspirin 81mg daily, no longer takes T2DM - Home home medications, takes medications in the evening and has not taken - Hold home glargine 43u - Gabapentin 300mg TID for neuropathy, has not been taking recently Anxiety/Depression - Continue Buproprion 300mg qAM. - Fluoxetine 40 dialy. Does not take the additional 20. DVT PPx: Heparin 2/2 JASMYNE CODE: Full Diet; NPO. Dispo: Med Surg (2) Hypercholesterolemia: (3) S/P laparoscopic procedure: (4) Diabetes mellitus: (5) Intraabdominal mass: (6) Hypertension: History of Present Illness Primary Care Provider: Jaime Lyle MD Severo Cueva is a 72-year-old male who presented with nausea/vomiting/diarrhea of approximately [address] concerning for cholecystitis. Patient has a past history of type II DM, hyperlipidemia, hypertension, restless leg syndrome. No history of CAD. 3 weeks nausea, vomiting, poor appetite, and liquid diarrhea without blood/melena. No pain. No fever/chjills. Seen in [place], CT as outpt concerning for lena and was referred to ER. Maybe 1x feeling hot and sweaty, otherwise no fevers/chills. No ches tpain or chest pain. No hx heart disease. No hx cardiac disease, no kidney disease, no hx of blood clots, no hx blood thinner use. No pulmonary disease. Has has symptoms like this periodically. Appetite is greatly diminished. Medical History: Reviewed Medications: Reviewed Surgical History: Reviewed Allergies: Reviewed Social History: No tobacco use. Social alcohol use, less than 2-3x/month. No rec drug use Code Status: DNR?DNI Allergies Allergy/AdvReac Type Severity Reaction Status Date / Time lisinopril AdvReac Intermediate Cough Verified 12/29/22 17:40 ropinirole AdvReac Intermediate thoughts Verified 12/29/22 17:40 of gambling Home Medications Medication Instructions Recorded Confirmed Type pen needle, diabetic 32 gauge x #100 ea 05/06/19 12/29/22 Rx 32" (BD Ultra-Fine Yojana Pen Needle) bupropion HCl 300 mg 24 hr tablet, 300 mg PO QAM #90 tabs 12/23/20 12/29/22 Rx extended release fluoxetine 40 mg capsule 40 mg PO QAM 06/02/21 12/29/22 History aspirin 81 mg tablet,delayed 81 mg PO QAM 10/16/21 12/29/22 History release (Jennifer Low Dose Aspirin) blood sugar diagnostic (OneTouch #100 ea 03/24/22 12/29/22 Rx Verio test strips) losartan 100 mg tablet 100 mg PO DAILY #90 tabs 04/16/22 12/29/22 Rx gabapentin 300 mg capsule 300 mg PO TID #270 caps 07/26/22 12/29/22 Rx omeprazole 40 mg capsule,delayed 40 mg PO BID #60 caps 07/28/22 12/29/22 Rx release ondansetron HCl 4 mg tablet 8 mg PO Q8H PRN nausea and 07/28/22 12/29/22 Rx vomiting #30 tabs fluoxetine 20 mg capsule (Prozac) 20 mg PO QAM 08/06/22 12/29/22 History metformin 500 mg tablet 1,000 mg PO QAM #180 tabs 09/09/22 12/29/22 Rx atorvastatin 80 mg tablet 80 mg PO QAM #90 tabs 09/15/22 12/29/22 Rx insulin glargine 100 unit/mL (3 43 unit (0.43 mL) subcut HS #15 12/15/22 12/29/22 Rx mL) subcutaneous pen (Lantus syringes Solostar U-100 Insulin) famotidine 20 mg tablet 20 mg PO BID #60 tabs 12/29/22 12/29/22 Rx Past Med/Surg History Medical History Acute ITP Depression with anxiety Diabetes mellitus, type 2 Diabetic nephropathy associated with type 2 diabetes mellitus Hyperlipidemia Hypertension Hypothyroidism Restless legs syndrome (RLS) 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) Thrombocytopenia Trigeminal neuralgia (~2002) Surgical History H/O arthroscopy of knee H/O vasectomy History of adenoidectomy History of cardiac cath (~2018) History of carpal tunnel surgery History of cataract surgery History of removal of Port-a-Cath (10/23/21) History of tonsillectomy Port-A-Cath in place (06/24/21) S/P laparoscopic procedure (06/24/21) Family History Mother Diabetes Type 2 diabetes mellitus Hypercholesteremia Sister Diabetes Hypercholesteremia Hypertension Father Stomach cancer Myocardial infarction Cancer Other Family history non-contributory No family history of adverse response to anesthesia Denies family history of Ovarian cancer Prostate cancer Breast cancer Colorectal cancer Social History (Updated 11/26/22 @ 15:25 by Elba Pak) Smoking Status: Former smoker Tobacco Type: Cigarettes Age Started Using Tobacco: 14; Age Quit Using Tobacco: 50; Second Hand Exposure: No; Hx Alcohol Use: Yes Alcohol type: hard liquor Alcohol Intake Frequency: Monthly or Less Hx Substance Use: No Preferred Language: Egyptian Communication Ability: Effective Visual Impairment: Limited Hearing Ability: Use of Hearing Aid Veneer Sorter Required: No Beliefs That Will Affect Care: None marital status: Current Living Situation: Spouse current occupational status: retired 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 How many Children do You have: 1 Feels Safe at Home: Yes Childhood Exposure to Second-Hand Smoke: Yes (Father smoked ) Diet Comment: Regular diet caffeine: Yes (Coffee ) during the past year weight has: decreased > 10 lbs Dental Care, Regularly: Yes Physical Activity Frequency: Does not Exercise Seatbelt Use: never Sunscreen Use: No Do you think of yourself as: straight/heterosexual Gender Identity: Male Assistive Devices: Glasses, Hearing Aid - Bilateral and Special Shoe Review of Systems Review of Systems: All systems reviewed & are unremarkable except as noted in HPI & below Physical Exam Physical Exam: General: A&Ox3. NAD. Cooperative. HEENT: Atraumatic, normocephalic. Pulm: CTAB A&P. -wheezes, -rales, -rhonchi. Symmetrical chest rise. No increased work of breathing. No respiratory distress. Cardiac: RRR, -mrg. Radial pulses intact and symmetrical. Abdominal: Nontender, nondistended, soft. BS present. Ext: warm, dry, no edema Results & Data Results & Data ([facility]) Vital Signs (Past 12 Hours) Vital Signs Temp Pulse Resp BP Pulse Ox O2 Del Method 12/29/22 14:43 36 C L 82 20 144/83 H 100 Room Air PG Care Time/CCT Total # of Minutes Spent Total Time Spent with Patient: Total time spent is greater than 50% in coordination of care (as documented) at patient's floor/unit and/or counseling patient: Coding Level of Care Code 30098 INT INP/OBS CARE 2/55MIN Diagnoses Nausea & vomiting R11.2 Hypercholesterolemia E78.00 S/P laparoscopic procedure Z98.890 Diabetes mellitus E11.9 Intraabdominal mass R19.00 Hypertension I10
[2022-12-29] MEDS: POTASSIUM CHLORIDE / WTR 10 MEQ/100 ML PLCT IV SCH ×3 (18:07→22:54)
[2022-12-29 18:15] LABS: Magnesium 1.8 mg/dl (1.7-2.4)
--- NOTE | 2022-12-29 19:28 | Surgery Consultation ---
Date of Consultation December 29, 2022 Assessment & Plan (1) Cholecystitis: Patient has been admitted on the hospitalist service. We recommend proceeding as follows: It is unclear if the patient is suffering from cholecystitis as he has no abdominal pain. The findings on patient's imaging do not definitively ascertain cholecystitis. We will therefore check a HIDA scan for further evaluation Provide analgesics Provide antiemetics Provide IV fluid for hydration supplementing potassium Follow serial labs Continue antibiotics in form of Zosyn which have been initiated in the emergency department Additional recommendations be forthcoming based on results of HIDA scan Supervising Physician Co-Signing Physician Notes Patient seen and examined, labs and imaging reviewed, agree with above. 72-year-old male with outpatient CT scan concerning for cholecystitis. Ultrasound with no stones but distended gallbladder with mild inflammation but negative Upton's. HIDA scan was performed today and showed nonfilling of the gallbladder consistent with a calculus cholecystitis. On exam he is afebrile with stable vitals, nontender. Plan for laparoscopic cholecystectomy with possible cholangiogram Wrist discussed to include but not limited to bleeding, infection, retained stone, bile leak, demonstrating structures, need for future more extensive surgery, conversion open, and the risk of anesthesia History of Present Illness Reason for Consultation: Possible cholecystitis History of Present Illness This is a 72-year-old male who notes that he has been having ongoing issues with diarrhea as well as nausea and vomiting for approximately 3 weeks. He specifically denies any abdominal pain. He notes that the previously mentioned symptoms are unrelated to meals. He does report he has lost approximately 16 pounds since his symptoms began. He has not taken any antibiotics recently. He notes that no close contacts in his family have been ill with similar symptoms. Patient notes that he has had primary abdominal surgeries as he has had some laparoscopic biopsies of his abdomen secondary to an abdominal mass and mesenteric adenopathy. Because of the patient's ongoing symptoms he saw his primary care team today who ordered a CT scan of the abdomen and pelvis. This CT scan was performed at [facility]. Per reports this CT showed concern for potential acalculus cholecystitis. There was noted thickening of the gallbladder wall with associated stranding of the surrounding mesenteric fat. There is also thickening of the second and third portions of the duodenum noted that were felt to be concerning for duodenitis. He was therefore referred to the emergency department at [facility] by his primary care team. Since arrival to [facility] the patient has had labs and imaging which independent reviewed. A gallbladder ultrasound showed the patient had a mildly thickened and irregular gallbladder wall with a measurement of up to 5 mm. There was sludge noted to be within the gallbladder. The technologist performing the study noted a negative sonographic Upton sign. There was some echogenic soft tissue which was felt to potentially represent inflammatory change. Acute cholecystitis could not definitively be ascertained from the study. Labs included a CBC were white blood cell count was normal. Platelet count was 4-10,000. Hemoglobin and hematocrit were 13.2 and 37.8. Chemistry profile showed sodium was 135 with a potassium of 2.9. BUN and creatinine were 31 and 1.4. (Review of records show the patient's baseline creatinine usually runs in the normal range) magnesium was noted be 1.8. Total bilirubin and gilbert saminases were nonelevated. There was an elevation of the alkaline phosphatase at 227. Lipase was nonelevated. Urinalysis was not indicative of infection. The patient was checked for COVID, influenza a and B, and RSV all of which were negative. Patient has had antibiotics in the form of Zosyn initiated. He has had some past potassium supplementation ordered. At the time of my interview he was resting comfortably in bed and he was in no distress. Allergies Allergy/AdvReac Type Severity Reaction Status Date / Time lisinopril AdvReac Intermediate Cough Verified 12/29/22 17:40 ropinirole AdvReac Intermediate thoughts Verified 12/29/22 17:40 of gambling Home Medications Medication Instructions Recorded Confirmed Type pen needle, diabetic 32 gauge x #100 ea 05/06/19 12/29/22 Rx 5/32" (BD Ultra-Fine Yojana Pen Needle) bupropion HCl 300 mg 24 hr tablet, 300 mg PO QAM #90 tabs 12/23/20 12/29/22 Rx extended release fluoxetine 40 mg capsule 40 mg PO QAM 06/02/21 12/29/22 History aspirin 81 mg tablet,delayed 81 mg PO QAM 10/16/21 12/29/22 History release (Jennifer Low Dose Aspirin) blood sugar diagnostic (OneTouch #100 ea 03/24/22 12/29/22 Rx Verio test strips) losartan 100 mg tablet 100 mg PO DAILY #90 tabs 04/16/22 12/29/22 Rx gabapentin 300 mg capsule 300 mg PO TID #270 caps 07/26/22 12/29/22 Rx omeprazole 40 mg capsule,delayed 40 mg PO BID #60 caps 07/28/22 12/29/22 Rx release ondansetron HCl 4 mg tablet 8 mg PO Q8H PRN nausea and 07/28/22 12/29/22 Rx vomiting #30 tabs fluoxetine 20 mg capsule (Prozac) 20 mg PO QAM 08/06/22 12/29/22 History metformin 500 mg tablet 1,000 mg PO QAM #180 tabs 09/09/22 12/29/22 Rx atorvastatin 80 mg tablet 80 mg PO QAM #90 tabs 09/15/22 12/29/22 Rx insulin glargine 100 unit/mL (3 43 unit (0.43 mL) subcut HS #15 12/15/22 12/29/22 Rx mL) subcutaneous pen (Lantus syringes Solostar U-100 Insulin) famotidine 20 mg tablet 20 mg PO BID #60 tabs 12/29/22 12/29/22 Rx Patient History Medical History Acute ITP Depression with anxiety Diabetes mellitus, type 2 IDDM Diabetic nephropathy associated with type 2 diabetes mellitus Hyperlipidemia Hypertension Hypothyroidism Pt denies TSH WNL in 10/2020- patient not on thyroid meds Restless legs syndrome (RLS) 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 History of carpal tunnel surgery left History of cataract surgery bilateral History of removal of Port-a-Cath (10/23/21) Infusaport Removal - Home Moreno DO, FACS 10/23/2021 History of tonsillectomy Port-A-Cath in place (06/24/21) Diagnostic Laparoscopy with Biopsy of the Mesentery and Peritoneum, Insertion of A-Port - Home Moreno DO, FACS S/P laparoscopic procedure (08/25/21) Diagnostic Laparoscopy with Biopsy of the Mesentery and Peritoneum, Insertion of A-Port - Home Moreno DO, FACS Family History Mother Diabetes Type 2 diabetes mellitus Hypercholesteremia Sister Diabetes Hypercholesteremia Hypertension Father Stomach cancer Myocardial infarction Cancer Other Family history non-contributory No family history of adverse response to anesthesia Denies family history of Ovarian cancer Prostate cancer Breast cancer Colorectal cancer Social History Smoking Status: Former smoker Tobacco Type: Cigarettes Age Started Using Tobacco: 14; Age Quit Using Tobacco: 50; Second Hand Exposure: No; Hx Alcohol Use: No Hx Substance Use: No Preferred Language: Azeri Communication Ability: Effective Visual Impairment: Limited Hearing Ability: Use of Hearing Aid Instructional Materials Director Required: No Beliefs That Will Affect Care: None marital status: Current Living Situation: Spouse current occupational status: retired 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 How many Children do You have: 1 Feels Safe at Home: Yes Childhood Exposure to Second-Hand Smoke: Yes (Father smoked ) Diet Comment: Regular diet caffeine: Yes (Coffee ) during the past year weight has: decreased > 10 lbs Dental Care, Regularly: Yes Physical Activity Frequency: Does not Exercise Seatbelt Use: never Sunscreen Use: No Do you think of yourself as: straight/heterosexual Gender Identity: Male Assistive Devices: None Review of Systems Constitutional: + weakness; no fever and no chills Eyes: no eye pain Ear, Nose, Mouth, Throat: no ear pain Respiratory: no cough and no dyspnea Cardiovascular: no chest pain Gastrointestinal: as per Subjective / HPI Genitourinary: no dysuria Musculoskeletal: no back pain Integumentary: no rash Neurologic: + generalized weakness; no localized weakness Physical Exam Constitutional: WD/WN, vitals as above Eyes: + anicteric sclerae; no conjunctival abnormality ENMT: Ears: no hearing impairment and no external ear abnormality Mouth: no oropharynx abnormality Neck: trachea midline Respiratory: normal respiratory effort; no respiratory distress and no labored breathing Cardiovascular: Rate/Rhythm: regular rate and regular rhythm Gastrointestinal (Abdomen): Abdomen is soft and nonrigid. It is nondistended. There is no pain noted with palpation in any region of his abdomen. There is no rebound tenderness or guarding. Musculoskeletal: No calf tenderness Skin: no rashes Neurologic: moves all extremities Psychiatric: A+Ox3, euthymic affect Results & Data ([facility]) Vital Signs (Past 12 Hours) Vital Signs Temp Pulse Pulse Resp BP Pulse Ox O2 Del Method 12/29/22 17:00 82 16 98 Room Air 12/29/22 14:43 36 C L 82 20 144/83 H 100 Room Air PG Care Time/CCT Total # of Minutes Spent Total Time Spent with Patient: Total time spent is greater than 50% in coordination of care (as documented) at patient's floor/unit and/or counseling patient: Coding Level of Care Code 02267 Office/Outpt Visit, New Diagnoses Cholecystitis K81.9
[2022-12-29] MEDS: NORMOSOL-R 1,000 ML IV SCH (22:49)
[2022-12-29] MEDS: PIPERACILLIN/TAZOBACTAM 3.375 GM in DEXTROSE 5% 100 ML IV SCH (22:52)
[2022-12-30] MEDS: POTASSIUM CHLORIDE / WTR 10 MEQ/100 ML PLCT IV SCH ×2 (00:23→01:41)
[2022-12-30] MEDS: PIPERACILLIN/TAZOBACTAM 3.375 GM in DEXTROSE 5% 100 ML IV SCH ×3 (06:19→21:17)
[2022-12-30] MEDS: NORMOSOL-R 1,000 ML IV SCH ×2 (06:19→23:20)
[2022-12-30 07:15] LABS: Basophils # (auto) 0.05 K/uL (0-0.2); Basophils % (auto) 0.9 %; Eosinophils # (auto) 0.17 K/uL (0-0.50); Hematocrit (blood only) 33.2 % (42.0-52.0); Hemoglobin 11.4 g/dl (14.0-18.0); Immature Granulocytes # (auto) 0.09 K/uL (0.01-0.20); Immature Granulocytes % (auto) 1.6 %; Lymphocytes # (auto) 0.78 K/uL (1.2-3.4); Lymphocytes % (auto) 13.8 %; Mean Corpuscular Hemoglobin 29.9 pg (25.0-34.0); Mean Corpuscular Hgb Conc 34.3 g/dL (32.0-36.0); Mean Corpuscular Volume 87.1 fL (80.0-100.0); Mean Platelet Volume 8.6 fL (9.4-12.4); Monocytes # (auto) 0.59 K/uL (0.11-0.59); Monocytes % (auto) 10.4 %; Neutrophils # (auto) 3.98 K/uL (1.40-6.50); Neutrophils % (auto) 70.3 %; Platelet Count 315 K/uL (130-400); RDW Coefficient of Variation 13.3 % (11.5-14.5); RDW Standard Deviation 42.5 fL (36.4-46.3); Red Blood Count 3.81 M/uL (4.70-6.10); White Blood Count 5.66 K/ul (4.8-10.8)
[2022-12-30 07:34] LABS: BUN Creatinine Ratio 17.2 (10-20); Calcium 9.5 mg/dl (8.5-10.1); Creatinine Clr Calc Pharmacy 64.7 ml/min; Est GFR (African American) 63.5 ml/min; Est GFR (Non-African American) 54.8 ml/min; Potassium 3.2 mmol/L (3.5-5.1)
[2022-12-30] MEDS ORDERED: PANTOprazole 40 MG TAB PO SCH (09:00)
[2022-12-30] MEDS ORDERED: SINCALIDE 2.1 MCG in 0.9 % SODIUM CHLORIDE 100 ML IV SCH (09:30)
[2022-12-30] MEDS ORDERED: MoRPHine SULFATE 2 MG/ML CARP ONE ×2 (09:55→18:02)
--- NOTE | 2022-12-30 10:51 | Nuclear Medicine Report ---
NUCLEAR MEDICINE HEPATOBILIARY SCAN CLINICAL HISTORY: Nausea and vomiting. Diarrhea. COMPARISON: Right upper quadrant ultrasound December 29, 2022. TECHNIQUE: 5.8 mCi of technetium 99m Choletec IV was injected at 8:52 AM on December 30, 2022. Immediat shanique following injection, imaging of the abdomen was carried out for 60 minutes in the anterior projec tion. Gallbladder activity is not identified at 60 minutes. Therefore, 2 mg of morphine was administe red IV as per protocol. FINDINGS: Hepatic uptake of radiotracer is prompt and homogeneous. Activity is identified within the common bile duct and small bowel at 15 minutes. No gallbladder activity is identified at 60 minutes. Morphine was administered at this time. Imaging was carried out for an additional 35 minutes. No gal lbladder activity is identified. IMPRESSION: Nonvisualization of gallbladder activity following morphine administration. These findin gs suggest acute cholecystitis. ACT 112: Negative or not required by law. Electronically signed by: Ashok Tuttle M.D. 12/30/2022 10:49 AM
[2022-12-30] MEDS: HEPARIN SOD 5,000 UNIT/0.5 ML VIAL SQ SCH ×2 (10:58→21:08)
[2022-12-30] MEDS: FLUoxetine HCL 20 MG CAP PO SCH (10:58)
[2022-12-30] MEDS: buPROPion XL 300 MG TABCR PO SCH (10:58)
[2022-12-30] MEDS: PANTOprazole 40 MG in SYRINGE 0 ML IV SCH (10:59)
[2022-12-30 11:46] LABS: BUN Creatinine Ratio 17.1 (10-20); Calcium 10.2 mg/dl (8.5-10.1); Creatinine Clr Calc Pharmacy 67.4 ml/min; Est GFR (African American) 66.6 ml/min; Est GFR (Non-African American) 57.5 ml/min; Potassium 3.6 mmol/L (3.5-5.1)
--- NOTE | 2022-12-30 13:51 | Surgery Progress Note ---
Date of Service December 30, 2022 Assessment & Plan (1) Cholecystitis: Plan: 72year old male with a calculus cholecystitis. plan for laparoscopic cholecystectomy with possible cholangiogram risks discussed to include but not limited to bleeding, infection, retained stone, bile leak, open surgery, damage to surrounding structures including bile duct, need for future or more extensive surgery, failure to treat symptoms, and risks of anesthesia. Admission and Anticipated Discharge Date Admission Date: December 29, 2022 Subjective 72-year-old male admitted with a calculus cholecystitis confirmed by HIDA scan today. Physical Exam Constitutional: WD/WN, vitals as above Gastrointestinal (Abdomen): normal bowel sounds, soft, nontender, no hepatosplenomegaly Inspection/Auscultation: + abdominal surgical scar Results & Data ([facility]) Vital Signs (Past 12 Hours) Vital Signs Temp Pulse Pulse Resp BP Pulse Ox O2 Del Method 12/30/22 12:09 36.6 C 72 16 142/81 H 97 Room Air 12/30/22 08:02 36.6 C 77 18 168/79 H 99 Room Air 12/30/22 07:34 66 12/30/22 04:08 36.5 C 75 18 143/80 H 97 Room Air Diagnostic Findings HIDA with nonfilling of the gallbladder, consistent with cholecystitis PG Care Time/CCT Total # of Minutes Spent Total Time Spent with Patient: Total time spent is greater than 50% in coordination of care (as documented) at patient's floor/unit and/or counseling patient: Coding Level of Care Code 57986 SUB INP/OBS CARE 11/24MIN Diagnoses Cholecystitis K81.9
--- NOTE | 2022-12-30 14:07 | Hospitalist Progress Note ---
Date of Service December 30, 2022 Assessment & Plan (1) Acute cholecystitis: Plan: Admitted on account of nausea and vomiting CT in [place] showed alcalculous cholecystitis HIDA scan here suggested acute cholecystitis Will undergo lap lena per surgery Continue empiric antibiotics (2) Nausea & vomiting: Plan: Possibly secondary to acute cholecystitis will continue sypmtomatic mgt Zofran PRN (3) Diabetes mellitus: Plan: T2DM - Home home medications, takes medications in the evening and has not taken - Hold home glargine 43u - Gabapentin 300mg TID for neuropathy, has not been taking recently (4) Hypertension: Plan: Not under great control Not on any meds at home will consider anti HTN upon d/c (5) Hypercholesterolemia: (6) S/P laparoscopic procedure: (7) Intraabdominal mass: Plan Hopefully d/c in the next 24-48 hrs Admission and Anticipated Discharge Date Admission Date: December 29, 2022 Subjective Patient is scheduled for lap lena following HIDA scan Review of Systems Review of Systems: All systems reviewed are negative, apart from the ones contained in the history. Physical Exam Physical Exam: The patient is awake, alert and oriented 3, well developed and well nourished, normocephalic and atraumatic, lying in bed and in no acute distress. HEENT--PERRL, EOMI, mucous membranes and oropharynx mildly dry Neck--supple. No JVD. No bruits. Thyroid normal, trachea midline, no adenopathy. Heart--normal S1 and S2. No murmurs, rubs or gallops. Lungs--clear bilaterally, no respiratory distress, no accessory muscle use. Abdomen--normal bowel sounds and soft. Mild epigastric and left sided abdominal pain Extremities--no cyanosis or clubbing. No edema. Dermatologic--normal skin turgor, normal color, no abnormal lymph nodes, no rash. Neurologic--cranial nerves II through XII grossly intact. Rheumatologic--normal range of motion. Psychiatric--normal affect. Results & Data Results & Data ([facility]) Vital Signs (Past 12 Hours) Vital Signs Temp Pulse Pulse Resp BP Pulse Ox O2 Del Method 12/30/22 13:58 72 18 161/90 H 99 Room Air 12/30/22 12:09 97.9 F 72 16 142/81 H 97 Room Air 12/30/22 08:02 97.9 F 77 18 168/79 H 99 Room Air 12/30/22 07:34 66 12/30/22 04:08 97.7 F 75 18 143/80 H 97 Room Air PG Care Time/CCT Total # of Minutes Spent Total Time Spent with Patient: Total time spent is greater than 50% in coordination of care (as documented) at patient's floor/unit and/or counseling patient: Coding Level of Care Code 59108 SUB INP/OBS CARE 2/35MIN Diagnoses Acute cholecystitis K81.0 Nausea & vomiting R11.2 Diabetes mellitus E11.9 Hypertension I10 Hypercholesterolemia E78.00 S/P laparoscopic procedure Z98.890 Intraabdominal mass R19.00 Time Spent (min) 35
--- NOTE | 2022-12-30 14:57 | Anesthesiology Consultation ---
Date of Service December 30, 2022 Assessment & Plan Chart Review Chart Review: Acceptable Risk for Surgery and Patient NOT seen in Pre Admission Testing Consults Requested none ASA ASA3 Proposed Anesthesia Anesthesia Type: General Risk / Benefits Reviewed With: PT / POA / Parent / Guardian, Accepts Plan and Informed Consent Obtained History Surgery Operation Date: 12/30/22 15:50 Proposed Procedures p Laparoscopic Cholecystectomy - Home Moreno DO, FACS Height/Weight Height: 6 ft 1 in Weight: 106.1 kg Allergies Allergy/AdvReac Type Severity Reaction Status Date / Time lisinopril AdvReac Intermediate Cough Verified 12/29/22 17:40 ropinirole AdvReac Intermediate thoughts Verified 12/29/22 17:40 of gambling Medications Home Medications Medication Instructions Recorded Confirmed Last Taken pen needle, diabetic 32 gauge x #100 ea 05/06/19 12/29/22 Unknown " (BD Ultra-Fine Yojana Pen Needle) bupropion HCl 300 mg 24 hr tablet, 300 mg PO QAM #90 tabs 12/23/20 12/29/22 12/29/22 extended release fluoxetine 40 mg capsule 40 mg PO QAM 06/02/21 12/29/22 12/29/22 aspirin 81 mg tablet,delayed 81 mg PO QAM 10/16/21 12/29/22 12/29/22 release (Jennifer Low Dose Aspirin) blood sugar diagnostic (OneTouch #100 ea 03/24/22 12/29/22 Unknown Verio test strips) losartan 100 mg tablet 100 mg PO DAILY #90 tabs 04/16/22 12/29/22 12/29/22 gabapentin 300 mg capsule 300 mg PO TID #270 caps 07/26/22 12/29/22 12/29/22 14:00 omeprazole 40 mg capsule,delayed 40 mg PO BID #60 caps 07/28/22 12/29/22 06:00 release ondansetron HCl 4 mg tablet 8 mg PO Q8H PRN nausea and 07/28/22 12/29/22 Unknown vomiting #30 tabs fluoxetine 20 mg capsule (Prozac) 20 mg PO QAM 08/06/22 12/29/22 12/29/22 metformin 500 mg tablet 1,000 mg PO QAM #180 tabs 09/09/22 12/29/22 12/29/22 atorvastatin 80 mg tablet 80 mg PO QAM #90 tabs 09/15/22 12/29/22 12/29/22 insulin glargine 100 unit/mL (3 43 unit (0.43 mL) subcut HS #15 12/15/22 12/29/22 12/28/22 mL) subcutaneous pen (Lantus syringes Solostar U-100 Insulin) famotidine 20 mg tablet 20 mg PO BID #60 tabs 12/29/22 12/29/22 12/29/22 09:00 Active Medications Generic Name Dose Route Start Last Admin Trade Name Freq PRN Reason Stop Dose Admin Bupropion HCl 300 mg 12/30/22 09:00 12/30/22 10:58 Bupropion Xl 300 Mg Tabcr PO 01/29/23 08:59 300 mg QAM ALONZO Administration Fluoxetine HCl 40 mg 12/30/22 09:00 12/30/22 10:58 Fluoxetine Hcl 20 Mg Cap PO 01/29/23 08:59 40 mg QAM ALONZO Administration Heparin Sodium (Porcine) 5,000 units 12/30/22 09:00 12/30/22 10:58 Heparin Sod 5,000 Unit/0.5 Ml Vial SQ 01/29/23 08:59 5,000 units Q12 ALONZO Administration Parenteral Electrolytes 1,000 mls @ 125 mls/hr 12/29/22 21:30 12/30/22 10:55 Normosol-R IV 12/30/22 21:29 125 mls/hr .Q8H ALONZO Infusion Piperacillin Sod/Tazobactam 115 mls @ 28.75 mls/hr 12/29/22 22:00 12/30/22 12:29 Sod 3.375 gm/ Dextrose IV 01/08/23 21:59 Infused Q8H ALONZO Infusion Protocol Pantoprazole Sodium 40 mg/ 10 mls @ 5 mls/min 12/30/22 11:00 12/30/22 10:59 Syringe IV 01/29/23 10:59 5 mls/min DAILY@1100 ALONZO Administration NPO Date Last Intake of Fluids: 12/29/22 Time Last Intake of Fluids: 09:00 Date Last Intake of Solids: 12/27/22 Past Medical History Medical History Acute ITP Depression with anxiety Diabetes mellitus, type 2 IDDM Diabetic nephropathy associated with type 2 diabetes mellitus Hyperlipidemia Hypertension Hypothyroidism Pt denies TSH WNL in 10/2020- patient not on thyroid meds Restless legs syndrome (RLS) 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) Thrombocytopenia Trigeminal neuralgia (~2002) Exercise / Class Metabolic Activity II 4-5 Yardwork/Stairs/Walk up hill Past Family History Family History Mother Diabetes Type 2 diabetes mellitus Hypercholesteremia Sister Diabetes Hypercholesteremia Hypertension Father Stomach cancer Myocardial infarction Cancer Other Family history non-contributory No family history of adverse response to anesthesia Denies family history of Ovarian cancer Prostate cancer Breast cancer Colorectal cancer Past Surgical History Surgical History H/O arthroscopy of knee left H/O vasectomy History of adenoidectomy History of cardiac cath (~2018) no stents. History of carpal tunnel surgery left History of cataract surgery bilateral History of removal of Port-a-Cath (10/23/21) Infusaport Removal - Home Moreno DO, FACS 10/23/2021 History of tonsillectomy Port-A-Cath in place (06/24/21) Diagnostic Laparoscopy with Biopsy of the Mesentery and Peritoneum, Insertion of A-Port - Home Moreno DO, FACS S/P laparoscopic procedure (06/24/21) Diagnostic Laparoscopy with Biopsy of the Mesentery and Peritoneum, Insertion of A-Port - Home Moreno DO, FACS Past Anesthesia History No Hx of Anesthesia Complications and No Family Hx of Anesthesia Complications History of PONV No Hx of PONV and No Hx of Motion Sickness Social History Smoking Status: Former smoker tobacco type: cigarettes Hx Alcohol Use: No Alcohol type: hard liquor alcohol intake frequency: a few times a week Hx Substance Use: No substance use type: does not use Physical Exam Vital Signs Last Vital Signs Temp 36.7 C 12/30/22 13:58 Pulse 72 12/30/22 13:58 Resp 18 12/30/22 13:58 BP 161/90 H 12/30/22 13:58 Pulse Ox 99 12/30/22 13:58 O2 Del Method Room Air 12/30/22 13:58 ENMT Mouth: no dentition abnormality Thyromental Distance: > or= 3.5 Finger Breadths Mallampati Class: II Neck normal visual inspection Respiratory normal respiratory effort Auscultation: lungs clear to auscultation bilaterally Cardiovascular Rate/Rhythm: regular rate and regular rhythm Psychiatric Orientation: alert Testing Laboratory Results 12/30/22 06:34 12/30/22 10:53 Urine Color Yellow 12/29/22 15:25 Urine Appearance Clear (Clear) 12/29/22 15:25 Urine pH 7.5 (4.5-7.5) 12/29/22 15:25 Ur Specific [place] 1.045 (1.000-1.030) H 12/29/22 15:25 Urine Protein Negative (Negative) 12/29/22 15:25 Urine Glucose (UA) Negative (Negative) 12/29/22 15:25 Urine Ketones Negative (Negative) 12/29/22 15:25 Urine Nitrite Negative (Negative) 12/29/22 15:25 Ur Leukocyte Esterase Negative (Negative) 12/29/22 15:25 12/30/22 14:03 POC Glucose 68 L*
[2022-12-30] MEDS ORDERED: BUPIVACAINE 0.5 % 5 MG/1 ML MPF 30ML VIAL ONE (15:00)
[2022-12-30] MEDS ORDERED: PROPOFOL IV EMULSION 10 MG/ML 20 ML VIAL IV ONE (15:05)
[2022-12-30] MEDS ORDERED: ROCURONIUM BROMIDE 10 MG/ML 5 ML VIAL IV ONE ×2 (15:05→16:11)
[2022-12-30] MEDS ORDERED: LIDOCAINE 2% 2 ML VIAL/AMP(20MG/ML) INFIL ONE (15:05)
[2022-12-30] MEDS ORDERED: MIDAZOLAM HCL 1 MG/ML 2ML VIAL ONE (15:05)
[2022-12-30] MEDS ORDERED: ONDANSETRON INJ 2 MG/ML 2 ML VIAL ONE ×2 (15:05→18:17)
[2022-12-30] MEDS ORDERED: fentaNYL citrate 100 MCG/2 ML VIAL ONE ×3 (15:05→18:24)
[2022-12-30] MEDS ORDERED: SURGICEL ABSORB HEMOSTAT 2IN X 14IN TOP ONE ×2 (17:20→18:00)
[2022-12-30] MEDS ORDERED: NEOSTIGMINE METHYLSULFATE 1 MG/ML 10ML VIAL ONE (18:02)
[2022-12-30] MEDS ORDERED: GLYCOPYRROLATE 0.2 MG/ML VIAL ONE (18:02)
[2022-12-30] MEDS ORDERED: ePHEDrine sulfate 50 MG/ML AMP IV PRN (18:21)
[2022-12-30] MEDS ORDERED: ONDANSETRON INJ 2 MG/ML 2 ML VIAL IV PRN (18:21)
[2022-12-30] MEDS ORDERED: ATROPINE SULFATE 0.1 MG/ML 10ML SYR IV PRN (18:21)
--- NOTE | 2022-12-30 18:24 | Operative Report ---
PG Post Operative Report Pre & Post Diagnosis Operation Date: 12/30/22 15:50 Pre-Op Diagnosis: Cholecystitis Post-Op Diagnosis: Gangrenous cholecystitis I identified the patient and participated in the time-out.: Yes Procedure Operation Date: 12/30/22 15:50 Actual Procedures p Laparoscopic Cholecystectomy(Not Applicable) - Home Moreno DO, FACS Surgeon Home Moreno DO, FACS Rn Cardiac Maria C Blanchard Estimated Blood Loss 50 Findings Consistent with Post-Op Diagnosis Omental adhesions to gallbladder. Gangrenous acalculous cholecystitis. Performed dome down technique, critical view of safety obtained. Wound was Sonicision. Cystic duct stapled at infundibulum. Surgicel placed at the liver bed. LIAS drain placed. Specimens Gallbladder Drains LISA drain in gallbladder fossa Anesthesia Type General Complications none Disposition Accompanied Patient To Recovery: No Disposition: Recovery Room Indications 72-year-old male with outpatient CT scan that showed concern for a calculus cholecystitis. Ultrasound equivocal. HIDA scan ordered and no filling of the gallbladder indicating acute cholecystitis. Plan for laparoscopic cholecystectomy with possible cholangiogram. The risks of the procedure were discussed, all questions were answered, and the patient agreed to proceed with surgery as planned. Description of Procedure The patient was properly identified, consented, and taken to the operating room where he was placed in the supine position. General endotracheal anesthesia was induced. SCDs and a safety belt were placed. Preoperative antibiotics were administered. The patient's abdomen was prepped and draped in the standard sterile fashion. A surgical timeout was performed and all parties were in agreement that this was the correct patient and procedure to be performed and we continued as planned. An incision was made in the left upper quadrant and the Veress needle was inserted. Saline drop test confirmed entry into the peritoneum. The abdomen was insufflated with carbon dioxide which the patient tolerated without incident. An incision was made superior and to the left of the umbilicus overlying the rectus muscle and the abdomen was then entered using the Optiview technique and a 5 mm trocar. The laparoscope was inserted and no damage from initial trocar or Veress needle placement was noted, no gross abnormalities were noted within the 4 quadrants of the abdomen. An 11 mm port was placed in the subxiphoid position and two 5 mm ports were then placed in the right subcostal position. The 11 mm port was eventually replaced with a 12 mm port to accommodate the stapler. The patient was placed in reverse Trendelenburg posit ion and rotated towards the left. 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 The omentum was densely adherent to the gallbladder. Through combination of electrocautery, blunt dissection, and suction dissection, this was gently teased away from portion of the gallbladder. During this the gallbladder was entered and dark purulent fluid drained. This was suctioned. The omentum continued to be gently teased away from the gallbladder wall. It was densely adherent and very inflamed. The dissection continued until I came to a narrowing of the gallbladder indicating the infundibulum. The yandy hepatis was extremely scarred. I was then able to begin gently teasing the gallbladder away from the liver bed. This again was accomplished with a combination of blunt dissection, suction dissection, and electrocautery. Near the dome of the gallbladder we entered into a portion of the liver parenchyma. Eventually we were able to complete the dissection of the dome down technique. The cystic artery was taken down with the Sonicision. Some denser adhesions to the gallbladder fossa were also taken down. The gallbladder was then stapled at the infundibulum with a 30 mm purple loaded Endo STUART stapler. The gallbladder was placed in an Endo Catch bag and removed through the subxiphoid port site. The right upper quadrant was irrigated. Hemostasis was achieved with electrocautery. Any portion of the wall of the gallbladder and liver parenchyma was fulgurated with electrocautery. The right upper quadrant was copiously irrigated and hemostasis was found to be good. Surgicel was placed in the gallbladder fossa. A round LISA drain was placed in the gallbladder fossa and exited through the right lateral port site. This was secured in place with a 2-0 nylon suture. The abdomen was again inspected and there was no evidence of bowel injury or continued bleeding. 5 mm trochars were removed under direct visualization and the abdomen was allowed to collapse. The subxiphoid port site fascia was closed with 0 Vicryl suture. The wound was irrigated, and the skin of all ports was closed with 4-0 Monocryl subcuticular sutures. Dermabond was placed over the wounds. A drain sponge was placed. The patient was extubated in the operating room and taken to the PACU where he recovered without apparent incident. All sponge, instrument and needle counts were correct at the conclusion of the procedure. The patient tolerated the procedure well. The physician's perinatal breastfeeding assistant was present and scrubbed for the entirety of the case and was essential in positioning the patient, prepping and draping, retraction and exposure, driving the laparoscope, removal of the gallbladder, closure the incisions, and placement of the dressings. I attest to the content of the Intraoperative Record and any orders documented therein. Any exceptions are noted below.
[2022-12-30] MEDS: fentaNYL citrate 100 MCG/2 ML VIAL IV PRN ×2 (18:25→18:30)
[2022-12-30] MEDS ORDERED: HYDROmorphone INJ 2 MG/ML SYR/VIAL ONE (18:43)
[2022-12-30] MEDS: HYDROmorphone INJ 2 MG/ML SYR/VIAL IV PRN ×4 (18:45→19:00)
--- NOTE | 2022-12-30 19:08 | Anesthesiology Progress Note ---
Date of Service December 30, 2022 Anesthesia Post Procedure Vital Signs Vital Signs: Temp Pulse Pulse Pulse Resp BP BP 12/30/22 19:05 36.5 C 84 14 132/64 12/30/22 18:55 83 12 110/52 L 12/30/22 18:45 82 14 119/52 L 12/30/22 18:35 82 17 123/59 L 12/30/22 18:25 81 15 125/65 12/30/22 18:15 36.0 C L 84 14 149/75 H 12/30/22 13:58 36.7 C 72 18 161/90 H 12/30/22 12:09 36.6 C 72 16 142/81 H 12/30/22 08:02 36.6 C 77 18 168/79 H 12/30/22 07:34 66 12/30/22 04:08 36.5 C 75 18 143/80 H 12/29/22 22:17 64 12/29/22 21:08 70 12/29/22 21:00 36.6 C 68 18 162/70 H 12/29/22 22:00 36.5 C 64 18 148/77 H 12/29/22 21:21 36.6 C 68 18 162/70 H Pulse Ox O2 Del Method 12/30/22 19:05 96 Room Air 12/30/22 18:55 97 Room Air 12/30/22 18:45 95 Room Air 12/30/22 18:35 97 Room Air 12/30/22 18:25 99 Room Air 12/30/22 18:15 98 Room Air 12/30/22 13:58 99 Room Air 12/30/22 12:09 97 Room Air 12/30/22 08:02 99 Room Air 12/30/22 07:34 12/30/22 04:08 97 Room Air 12/29/22 22:17 12/29/22 21:08 12/29/22 21:00 99 Room Air 12/29/22 22:00 99 Room Air 12/29/22 21:21 99 Room Air Pain Intensity Abdomen: Pain Intensity: 5 Transfer of Care Handoff Completed per policy Notes Mental Status: alert / awake / arousable Patient Amnestic to Procedure: Yes Nausea / Vomiting: adequately controlled Pain: adequately controlled Airway Patency, RR, SpO2: stable & adequate BP & HR: stable & adequate Hydration State: stable & adequate Anesthetic Complications: no major complications apparent
[2022-12-30] MEDS ORDERED: MoRPHine SULFATE 2 MG/ML CARP IV PRN (19:35)
[2022-12-30] MEDS ORDERED: oxyCODONE/ACETAMINOPHEN 5mg/325mg TAB PO PRN ×2 (19:35)
[2022-12-30] MEDS ORDERED: MoRPHine SULFATE 4 MG/ML 1 ML CARP\\VIAL IV PRN (19:35)
[2022-12-30 23:29] LABS: BUN Creatinine Ratio 16.4 (10-20); Creatinine Clr Calc Pharmacy 67.9 ml/min; Est GFR (African American) 67.3 ml/min; Potassium 3.5 mmol/L (3.5-5.1)
[2022-12-31] MEDS: PIPERACILLIN/TAZOBACTAM 3.375 GM in DEXTROSE 5% 100 ML IV SCH ×3 (05:11→23:01)
[2022-12-31 06:54] LABS: Basophils # (auto) 0.04 K/uL (0-0.2); Basophils % (auto) 0.8 %; Eosinophils # (auto) 0.08 K/uL (0-0.50); Eosinophils % (auto) 1.7 %; Hematocrit (blood only) 32.6 % (42.0-52.0); Immature Granulocytes # (auto) 0.06 K/uL (0.01-0.20); Immature Granulocytes % (auto) 1.3 %; Lymphocytes # (auto) 0.72 K/uL (1.2-3.4); Lymphocytes % (auto) 15.3 %; Mean Corpuscular Hemoglobin 29.9 pg (25.0-34.0); Mean Corpuscular Hgb Conc 33.7 g/dL (32.0-36.0); Mean Corpuscular Volume 88.6 fL (80.0-100.0); Mean Platelet Volume 8.6 fL (9.4-12.4); Monocytes % (auto) 8.5 %; Neutrophils # (auto) 3.42 K/uL (1.40-6.50); Neutrophils % (auto) 72.4 %; Platelet Count 261 K/uL (130-400); RDW Coefficient of Variation 13.4 % (11.5-14.5); RDW Standard Deviation 43.9 fL (36.4-46.3); Red Blood Count 3.68 M/uL (4.70-6.10); White Blood Count 4.72 K/ul (4.8-10.8)
[2022-12-31 07:53] LABS: Albumin Level 3.2 gm/dl (3.4-5.0); BUN Creatinine Ratio 17.1 (10-20); Bilirubin Direct 0.2 mg/dl (0-0.2); Bilirubin,Total 0.8 mg/dl (0.2-1.0); Calcium 9.1 mg/dl (8.5-10.1); Creatinine Clr Calc Pharmacy 75.4 ml/min; Est GFR (African American) 75.4 ml/min; Est GFR (Non-African American) 65.1 ml/min; Potassium 3.5 mmol/L (3.5-5.1); Total Protein 6.1 gm/dl (6.0-8.3)
[2022-12-31] MEDS: FLUoxetine HCL 20 MG CAP PO SCH (09:24)
[2022-12-31] MEDS: HEPARIN SOD 5,000 UNIT/0.5 ML VIAL SQ SCH ×2 (09:24→20:35)
[2022-12-31] MEDS: buPROPion XL 300 MG TABCR PO SCH (09:24)
--- NOTE | 2022-12-31 09:29 | Surgery Progress Note ---
Date of Service December 31, 2022 Assessment & Plan (1) Acute cholecystitis: Plan: 72-year-old male POD #1 lap lena for severe, gangrenous, a calculus cholecystitis. He is doing quite well and is feeling much better. His labs are unremarkable. Advance diet as tolerated Continue IV antibiotics, will send home on 7 days of oral antibiotics Continue LISA drain, we can remove in the clinic next week Likely okay for discharge over the weekend if doing well Dr. Hall covering over the weekend (2) History of laparoscopic cholecystectomy: Admission and Anticipated Discharge Date Admission Date: December 29, 2022 Subjective 72-year-old male POD #1 laparoscopic cholecystectomy for severe, gangrenous, acalculous cholecystitis. Overall doing well, feels much better than prior to surgery. Still pretty sore in his right upper quadrant. Tolerating clear liquids. Physical Exam Constitutional: WD/WN, vitals as above Gastrointestinal (Abdomen): Inspection/Auscultation: + abdominal surgical incision (Healing well no infection) and + abdominal surgical drain present (Serosanguineous) Percussion/Palpation: + abdomen tender (Appropriate tender to palpation in right upper quadrant) and abdomen soft; no guarding and abdomen not rigid Results & Data ([facility]) Vital Signs (Past 12 Hours) Vital Signs Temp Pulse Pulse Resp BP Pulse Ox O2 Del Method 12/31/22 07:20 36.4 C L 68 16 130/77 96 Room Air 12/31/22 04:39 36.5 C 70 18 125/71 98 Room Air 12/30/22 22:00 84 12/30/22 22:29 36.3 C L 86 18 124/78 95 Room Air Laboratory Results Laboratory Results - last 24 hr 12/30/22 12/30/22 12/30/22 10:53 14:03 18:20 WBC RBC Hgb Hct MCV MCH MCHC RDW Std Deviation RDW Coeff of Beck Plt Count MPV Immature Gran % (Auto) Neut % (Auto) Lymph % (Auto) [place] % (Auto) Eos % (Auto) Baso % (Auto) Neut # (Auto) Lymph # (Auto) [place] # (Auto) Eos # (Auto) Baso # (Auto) Immature Gran # (Auto) Sodium 137 Potassium 3.6 Chloride 101 Carbon Dioxide 27 Anion Gap 9 BUN 21 Creatinine 1.23 Est Cr Clr Drug Dosing 67.4 Est GFR ( Amer) 66.6 Est GFR (Non-Af Amer) 57.5 BUN/Creatinine Ratio 17.1 Glucose 83 POC Glucose 68 L* 115 H Calcium 10.2 H Total Bilirubin Direct Bilirubin AST ALT Alkaline Phosphatase Total Protein Albumin 12/30/22 12/30/22 12/31/22 22:45 23:19 06:28 WBC 4.72 L RBC 3.68 L Hgb 11.0 L Hct 32.6 L MCV 88.6 MCH 29.9 MCHC 33.7 RDW Std Deviation 43.9 RDW Coeff of Beck 13.4 Plt Count 261 MPV 8.6 L Immature Gran % (Auto) 1.3 Neut % (Auto) 72.4 Lymph % (Auto) 15.3 [place] % (Auto) 8.5 Eos % (Auto) 1.7 Baso % (Auto) 0.8 Neut # (Auto) 3.42 Lymph # (Auto) 0.72 L [place] # (Auto) 0.40 Eos # (Auto) 0.08 Baso # (Auto) 0.04 Immature Gran # (Auto) 0.06 Sodium 137 Potassium 3.5 Chloride 102 Carbon Dioxide 26 Anion Gap 9 BUN 20 Creatinine 1.22 Est Cr Clr Drug Dosing 67.9 Est GFR ( Amer) 67.3 Est GFR (Non-Af Amer) 58.0 BUN/Creatinine Ratio 16.4 Glucose 110 H POC Glucose 110 H Calcium 9.0 Total Bilirubin Direct Bilirubin AST ALT Alkaline Phosphatase Total Protein Albumin 12/31/22 12/31/22 06:28 07:31 WBC RBC Hgb Hct MCV MCH MCHC RDW Std Deviation RDW Coeff of Beck Plt Count MPV Immature Gran % (Auto) Neut % (Auto) Lymph % (Auto) [place] % (Auto) Eos % (Auto) Baso % (Auto) Neut # (Auto) Lymph # (Auto) [place] # (Auto) Eos # (Auto) Baso # (Auto) Immature Gran # (Auto) Sodium 137 Potassium 3.5 Chloride 102 Carbon Dioxide 30 Anion Gap 5 BUN 19 Creatinine 1.11 Est Cr Clr Drug Dosing 75.4 Est GFR ( Amer) 75.4 Est GFR (Non-Af Amer) 65.1 BUN/Creatinine Ratio 17.1 Glucose 80 POC Glucose 78 Calcium 9.1 Total Bilirubin 0.8 Direct Bilirubin 0.2 AST 47 H ALT 42 Alkaline Phosphatase 166 H Total Protein 6.1 D Albumin 3.2 L PG Care Time/CCT Total # of Minutes Spent Total Time Spent with Patient: Total time spent is greater than 50% in coordination of care (as documented) at patient's floor/unit and/or counseling patient: Coding Level of Care Code 72789 Post Operative Follow-Up Diagnoses Acute cholecystitis K81.0 History of laparoscopic cholecystectomy Z90.49
[2022-12-31] MEDS: amLODIPine BESYLATE 5 MG TAB PO SCH (09:54)
[2022-12-31] MEDS: PANTOprazole 40 MG in SYRINGE 0 ML IV SCH (11:55)
--- NOTE | 2022-12-31 17:39 | Hospitalist Progress Note ---
Date of Service December 31, 2022 Assessment & Plan (1) Acute cholecystitis: Plan: Admitted on account of nausea and vomiting CT in [place] showed alcalculous cholecystitis HIDA scan here suggested acute cholecystitis Will undergo lap lena per surgery Continue empiric antibiotics (2) Nausea & vomiting: Plan: Possibly secondary to acute cholecystitis will continue sypmtomatic mgt Zofran PRN (3) Diabetes mellitus: Plan: T2DM - Home home medications, takes medications in the evening and has not taken - Hold home glargine 43u - Gabapentin 300mg TID for neuropathy, has not been taking recently (4) Hypertension: Plan: Not under great control Not on any meds at home will consider anti HTN upon d/c (5) Hypercholesterolemia: (6) S/P laparoscopic procedure: (7) Intraabdominal mass: Plan Hopefully d/c in the next 24-48 hrs Admission and Anticipated Discharge Date Admission Date: December 29, 2022 Subjective Patient reports mild incisional pain Otherwise able to tolerate oral intake Physical Exam Physical Exam: Head and ENT no thyroid enlargement trachea midline Cardiovascular S1-S2 are normal no S3 Lungs bilateral air entry fair no wheezing Abdomen soft nondistended positive bowel sounds no rebound tenderness Mild incisional tenderness Extremity shows trace edema Neurologically no focal deficits Skin shows no rash no cyanosis Results & Data Results & Data ([facility]) Vital Signs (Past 12 Hours) Vital Signs Temp Pulse Pulse Pulse Resp BP Pulse Ox 12/31/22 16:05 79 12/31/22 15:28 36.3 C L 78 16 130/77 99 12/31/22 12:00 36.6 C 82 16 153/79 H 99 12/31/22 10:42 66 12/31/22 07:20 36.4 C L 68 16 130/77 96 O2 Del Method 12/31/22 16:05 12/31/22 15:28 Room Air 12/31/22 12:00 Room Air 12/31/22 10:42 12/31/22 07:20 Room Air PG Care Time/CCT Total # of Minutes Spent Total Time Spent with Patient: Total time spent is greater than 50% in coordination of care (as documented) at patient's floor/unit and/or counseling patient: Coding Level of Care Code 08856 SUB INP/OBS CARE 2/35MIN Diagnoses Acute cholecystitis K81.0 Nausea & vomiting R11.2 Diabetes mellitus E11.9 Hypertension I10 Hypercholesterolemia E78.00 S/P laparoscopic procedure Z98.890 Intraabdominal mass R19.00
[2023-01-01] MEDS: PIPERACILLIN/TAZOBACTAM 3.375 GM in DEXTROSE 5% 100 ML IV SCH ×3 (04:59→20:59)
[2023-01-01 06:12] LABS: Basophils # (auto) 0.03 K/uL (0-0.2); Basophils % (auto) 0.7 %; Eosinophils # (auto) 0.09 K/uL (0-0.50); Hematocrit (blood only) 31.9 % (42.0-52.0); Hemoglobin 10.9 g/dl (14.0-18.0); Immature Granulocytes # (auto) 0.04 K/uL (0.01-0.20); Immature Granulocytes % (auto) 0.9 %; Lymphocytes # (auto) 0.72 K/uL (1.2-3.4); Lymphocytes % (auto) 16.1 %; Mean Corpuscular Hemoglobin 29.9 pg (25.0-34.0); Mean Corpuscular Hgb Conc 34.2 g/dL (32.0-36.0); Mean Corpuscular Volume 87.4 fL (80.0-100.0); Mean Platelet Volume 8.7 fL (9.4-12.4); Monocytes % (auto) 11.2 %; Neutrophils # (auto) 3.08 K/uL (1.40-6.50); Neutrophils % (auto) 69.1 %; Platelet Count 244 K/uL (130-400); RDW Coefficient of Variation 13.2 % (11.5-14.5); RDW Standard Deviation 42.4 fL (36.4-46.3); Red Blood Count 3.65 M/uL (4.70-6.10); White Blood Count 4.46 K/ul (4.8-10.8)
[2023-01-01 08:41] LABS: BUN Creatinine Ratio 12.5 (10-20); Calcium 9.4 mg/dl (8.5-10.1); Creatinine Clr Calc Pharmacy 69.7 ml/min; Est GFR (African American) 68.6 ml/min; Est GFR (Non-African American) 59.2 ml/min; Potassium 3.5 mmol/L (3.5-5.1)
[2023-01-01] MEDS ORDERED: ONDANSETRON INJ 2 MG/ML 2 ML VIAL IV PRN (08:41)
[2023-01-01] MEDS: HEPARIN SOD 5,000 UNIT/0.5 ML VIAL SQ SCH ×2 (09:13→20:59)
[2023-01-01] MEDS: amLODIPine BESYLATE 5 MG TAB PO SCH (09:13)
[2023-01-01] MEDS: buPROPion XL 300 MG TABCR PO SCH (09:13)
[2023-01-01] MEDS: PANTOprazole 40 MG in SYRINGE 0 ML IV SCH (09:13)
[2023-01-01] MEDS: FLUoxetine HCL 20 MG CAP PO SCH (09:13)
--- NOTE | 2023-01-01 10:20 | Surgery Progress Note ---
Date of Service January 01, 2023 Assessment & Plan (1) History of laparoscopic cholecystectomy: Plan: discharge per medical team will need 7 days po abx at home drain home with patient, remove in office as outptient Present on Admission?: Yes Admission and Anticipated Discharge Date Admission Date: December 29, 2022 Subjective pain controlled diet doing well drain serous Review of Systems Constitutional: no fever and no chills Respiratory: no dyspnea Cardiovascular: no chest pain Gastrointestinal: + abdominal pain; no nausea and no vomiting Genitourinary: no dysuria Physical Exam Constitutional: WD/WN, vitals as above Respiratory: normal respiratory effort, lungs clear to auscultation Cardiovascular: RRR, no murmur, no edema Gastrointestinal (Abdomen): Inspection/Auscultation: abdomen normal to inspection, normal bowel sounds and + abdominal surgical incision; abdomen not distended Percussion/Palpation: + abdomen tender and abdomen soft; no guarding and abdomen not rigid drain in place Results & Data ([facility]) Vital Signs (Past 12 Hours) Vital Signs Temp Pulse Pulse Pulse Resp BP Pulse Ox 01/01/23 07:46 36.7 C 73 18 134/65 94 01/01/23 06:02 68 01/01/23 03:40 37 C 75 18 132/71 94 12/31/22 23:15 36.6 C 72 18 120/65 94 12/31/22 23:11 36.6 C 72 18 120/65 94 O2 Del Method 01/01/23 07:46 Room Air 01/01/23 06:02 01/01/23 03:40 Room Air 12/31/22 23:15 Room Air 12/31/22 23:11 Room Air
[2023-01-01] MEDS ORDERED: PROMETHAZINE HCL 12.5 MG in SODIUM CHLORIDE 0.9% 50 ML IV STA (12:02)
[2023-01-01] MEDS ORDERED: LACTATED RINGER'S 1,000 ML IV SCH (16:30)
[2023-01-01] MEDS: POLYETHYLENE (MIRALAX) 17 GM PACK PO SCH (16:37)
--- NOTE | 2023-01-01 19:03 | Hospitalist Progress Note ---
Date of Service January 01, 2023 Assessment & Plan (1) Acute cholecystitis: Plan: Admitted on account of nausea and vomiting CT in [place] showed alcalculous cholecystitis HIDA scan here suggested acute cholecystitis Will undergo lap lena per surgery 3/4-patient status post lap cholecystectomy Improving postsurgery Drain serous and no BM yet IV fluids to restore volume status and if patient continues to improve plan DC in next 24 to 48 hours (2) Nausea & vomiting: Plan: Possibly secondary to acute cholecystitis will continue sypmtomatic mgt Zofran PRN (3) Diabetes mellitus: Plan: T2DM - Home home medications, takes medications in the evening and has not taken - Hold home glargine 43u - Gabapentin 300mg TID for neuropathy, has not been taking recently (4) Hypertension: Plan: Not under great control Not on any meds at home will consider anti HTN upon d/c (5) Hypercholesterolemia: (6) S/P laparoscopic procedure: (7) Intraabdominal mass: Plan d/c in the next 24-48 hrs Admission and Anticipated Discharge Date Admission Date: December 29, 2022 Subjective Patient seen and examined Pain control acceptable Had mild nausea this a.m. and relieved with Phenergan No BM yet drain serous Physical Exam Physical Exam: Head and ENT no thyroid enlargement trachea midline Cardiovascular S1-S2 are normal no S3 Lungs bilateral air entry fair no wheezing Abdomen soft nondistended bowel sounds hypoactive Extremity shows trace edema Neurologically no focal deficits Skin shows no rash no cyanosis Results & Data Results & Data ([facility]) Vital Signs (Past 12 Hours) Vital Signs Temp Pulse Pulse Resp BP Pulse Ox O2 Del Method 01/01/23 14:15 94 H 01/01/23 15:53 37.0 C 80 18 129/68 100 Room Air 01/01/23 11:24 36.5 C 57 L 18 122/72 99 Room Air 01/01/23 07:46 36.7 C 73 18 134/65 94 Room Air PG Care Time/CCT Total # of Minutes Spent Total Time Spent with Patient: Total time spent is greater than 50% in coordination of care (as documented) at patient's floor/unit and/or counseling patient: Coding Level of Care Code 50391 SUB INP/OBS CARE 2/35MIN Diagnoses Acute cholecystitis K81.0 Nausea & vomiting R11.2 Diabetes mellitus E11.9 Hypertension I10 Hypercholesterolemia E78.00 S/P laparoscopic procedure Z98.890 Intraabdominal mass R19.00
[2023-01-02] MEDS ORDERED: GABAPENTIN 300 MG CAP PO ONE (00:45)
[2023-01-02] MEDS: PIPERACILLIN/TAZOBACTAM 3.375 GM in DEXTROSE 5% 100 ML IV SCH ×3 (05:15→23:34)
[2023-01-02 06:12] LABS: Basophils # (auto) 0.04 K/uL (0-0.2); Eosinophils # (auto) 0.11 K/uL (0-0.50); Eosinophils % (auto) 2.7 %; Hematocrit (blood only) 29.2 % (42.0-52.0); Hemoglobin 9.8 g/dl (14.0-18.0); Immature Granulocytes # (auto) 0.05 K/uL (0.01-0.20); Immature Granulocytes % (auto) 1.2 %; Lymphocytes # (auto) 1.03 K/uL (1.2-3.4); Lymphocytes % (auto) 24.8 %; Mean Corpuscular Hemoglobin 29.9 pg (25.0-34.0); Mean Corpuscular Hgb Conc 33.6 g/dL (32.0-36.0); Mean Platelet Volume 8.8 fL (9.4-12.4); Monocytes # (auto) 0.53 K/uL (0.11-0.59); Monocytes % (auto) 12.8 %; Neutrophils # (auto) 2.39 K/uL (1.40-6.50); Neutrophils % (auto) 57.5 %; Platelet Count 244 K/uL (130-400); RDW Coefficient of Variation 13.3 % (11.5-14.5); RDW Standard Deviation 43.9 fL (36.4-46.3); Red Blood Count 3.28 M/uL (4.70-6.10); White Blood Count 4.15 K/ul (4.8-10.8)
[2023-01-02 06:27] LABS: BUN Creatinine Ratio 9.8 (10-20); Calcium 9.3 mg/dl (8.5-10.1); Creatinine Clr Calc Pharmacy 81.9 ml/min; Est GFR (African American) 83.5 ml/min; Est GFR (Non-African American) 72.1 ml/min; Potassium 3.4 mmol/L (3.5-5.1)
[2023-01-02] MEDS: POLYETHYLENE (MIRALAX) 17 GM PACK PO SCH (08:06)
[2023-01-02] MEDS: buPROPion XL 300 MG TABCR PO SCH (08:07)
[2023-01-02] MEDS: HEPARIN SOD 5,000 UNIT/0.5 ML VIAL SQ SCH ×2 (08:07→20:10)
[2023-01-02] MEDS: amLODIPine BESYLATE 5 MG TAB PO SCH (08:07)
[2023-01-02] MEDS: FLUoxetine HCL 20 MG CAP PO SCH (08:07)
[2023-01-02] MEDS ORDERED: MAGNESIUM HYDROXIDE SUSP 30 ML UDC PO PRN (10:47)
--- NOTE | 2023-01-02 12:22 | Surgery Progress Note ---
Date of Service January 02, 2023 Assessment & Plan (1) History of laparoscopic cholecystectomy: Plan: discharge no strenuous activity will need abx for 7 days total appt with surgeon in 2 weeks willvsign off Present on Admission?: Yes Admission and Anticipated Discharge Date Admission Date: December 29, 2022 Subjective no complaints Review of Systems Constitutional: no fever and no chills Gastrointestinal: + abdominal pain Physical Exam Constitutional: WD/WN, vitals as above Gastrointestinal (Abdomen): Inspection/Auscultation: abdomen normal to inspection and normal bowel sounds; abdomen not distended Percussion/Palpation: + abdomen tender and abdomen soft Results & Data ([facility]) Vital Signs (Past 12 Hours) Vital Signs Temp Pulse Pulse Resp BP Pulse Ox O2 Del Method 01/02/23 07:39 36.4 C L 79 16 132/72 96 Room Air 01/02/23 07:29 Room Air 01/02/23 06:00 61 01/02/23 03:46 36.8 C 70 18 163/76 H 95 Room Air
[2023-01-02] MEDS: PANTOprazole 40 MG in SYRINGE 0 ML IV SCH (12:32)
[2023-01-02] MEDS ORDERED: LACTULOSE SYRUP 30 GM/45 ML UDP PO STA ×2 (14:29→16:54)
[2023-01-02] MEDS ORDERED: SODIUM CHLORIDE 0.9% 1000ML 500 ML IV ONE (14:30)
--- NOTE | 2023-01-02 17:37 | Hospitalist Progress Note ---
Date of Service January 02, 2023 Assessment & Plan (1) Acute cholecystitis: Plan: Admitted on account of nausea and vomiting CT in [place] showed alcalculous cholecystitis HIDA scan here suggested acute cholecystitis Will undergo lap lena per surgery 3/-patient status post lap cholecystectomy Improving postsurgery Drain serous and no BM yet IV fluids to restore volume status and if patient continues to improve plan DC in next 24 to 48 hours /5-patient reports improvement in his nausea Oral intake is improved but still patient appears dry We will continue IV fluids and no bowel movement yet We will start lactulose to assist with bowel movement Change IV antibiotics to oral and DC in a.m. Recheck general surgery to decide on removing LISA drain as drainage is minimal (2) Nausea & vomiting: Plan: Possibly secondary to acute cholecystitis will continue sypmtomatic mgt Zofran PRN (3) Diabetes mellitus: Plan: T2DM - Home home medications, takes medications in the evening and has not taken - Hold home glargine 43u - Gabapentin 300mg TID for neuropathy, has not been taking recently (4) Hypertension: Plan: Not under great control Not on any meds at home will consider anti HTN upon d/c (5) Hypercholesterolemia: (6) S/P laparoscopic procedure: (7) Intraabdominal mass: Plan d/c in the next 24-48 hrs Admission and Anticipated Discharge Date Admission Date: December 29, 2022 Subjective Patient reports improvement in his nausea symptoms compared to yesterday Minimal drainage in LISA noted No bowel movement yet patient reports that he is passing flatus today Physical Exam Physical Exam: Head and ENT no thyroid enlargement trachea midline Cardiovascular S1-S2 are normal no S3 Lungs bilateral air entry fair no wheezing Abdomen soft nondistended bowel sounds hypoactive bowel sounds improving LISA minimal drainage Extremity shows trace edema Neurologically no focal deficits Skin shows no rash no cyanosis Results & Data Results & Data ([facility]) Vital Signs (Past 12 Hours) Vital Signs Temp Pulse Pulse Pulse Resp BP Pulse Ox 01/02/23 14:14 70 01/02/23 14:50 36.5 C 82 16 134/67 98 01/02/23 12:40 36.4 C L 67 14 110/60 99 01/02/23 07:39 36.4 C L 79 16 132/72 96 01/02/23 07:29 01/02/23 06:00 61 O2 Del Method 01/02/23 14:14 01/02/23 14:50 Room Air 01/02/23 12:40 Room Air 01/02/23 07:39 Room Air 01/02/23 07:29 Room Air 01/02/23 06:00 Laboratory Results Short CBC 01/02/23 Range/Units 05:35 WBC 4.15 L (4.8-10.8) K/ul Hgb 9.8 L (14.0-18.0) g/dl Hct 29.2 L (42.0-52.0) % Plt Count 244 (130-400) K/uL BMP 01/02/23 05:35 Sodium 140 Potassium 3.4 L Chloride 105 Carbon Dioxide 31 BUN 10 Creatinine 1.02 Glucose 103 H Calcium 9.3 PG Care Time/CCT Total # of Minutes Spent Total Time Spent with Patient: Total time spent is greater than 50% in coordination of care (as documented) at patient's floor/unit and/or counseling patient: Coding Level of Care Code 40511 SUB INP/OBS CARE 2/35MIN Diagnoses Acute cholecystitis K81.0 Nausea & vomiting R11.2 Diabetes mellitus E11.9 Hypertension I10 Hypercholesterolemia E78.00 S/P laparoscopic procedure Z98.890 Intraabdominal mass R19.00
[2023-01-02] MEDS ORDERED: LACTATED RINGER'S 1,000 ML IV SCH (18:00)
[2023-01-02] MEDS: GABAPENTIN 300 MG CAP PO SCH (20:09)
[2023-01-03] MEDS: PIPERACILLIN/TAZOBACTAM 3.375 GM in DEXTROSE 5% 100 ML IV SCH (06:10)
[2023-01-03 07:23] LABS: Calcium 9.3 mg/dl (8.5-10.1); Potassium 3.9 mmol/L (3.5-5.1)
--- NOTE | 2023-01-03 07:24 | Surgery Progress Note ---
Date of Service January 03, 2023 Assessment & Plan (1) History of laparoscopic cholecystectomy: Plan: Patient appears to be stable and is sleeping comfortably I did awaken him His abdomen is soft he does have his drain in place with serous output We will need to keep his drain to at least or Tuesday-to come into the office to have it removed Continue on antibiotics p.o. as an outpatient I think he can be discharged home from surgical standpoint Would continue him on Senokot-S and milk of mag which I have suggested in the discharge instructions Continue to ambulate Admission and Anticipated Discharge Date Admission Date: December 29, 2022 Results & Data ([facility]) Vital Signs (Past 12 Hours) Vital Signs Temp Pulse Pulse Resp BP Pulse Ox O2 Del Method 01/03/23 06:00 64 01/03/23 03:43 36.9 C 73 16 123/75 93 Room Air 01/02/23 23:51 81 01/02/23 23:35 36.5 C 80 18 124/74 95 Room Air 01/02/23 19:45 36.7 C 66 20 149/76 H 95 Room Air PG Care Time/CCT Total # of Minutes Spent Total Time Spent with Patient: Total time spent is greater than 50% in coordination of care (as documented) at patient's floor/unit and/or counseling patient: Coding Level of Care Code 39484 Post Operative Follow-Up Diagnoses History of laparoscopic cholecystectomy Z90.49
[2023-01-03 07:28] LABS: BUN Creatinine Ratio 8.4 (10-20); Creatinine Clr Calc Pharmacy 88.2 ml/min; Est GFR (Non-African American) 78.5 ml/min
[2023-01-03] MEDS: GABAPENTIN 300 MG CAP PO SCH (07:57)
[2023-01-03] MEDS: HEPARIN SOD 5,000 UNIT/0.5 ML VIAL SQ SCH (07:57)
[2023-01-03] MEDS: FLUoxetine HCL 20 MG CAP PO SCH (07:57)
[2023-01-03] MEDS: amLODIPine BESYLATE 5 MG TAB PO SCH (07:57)
[2023-01-03] MEDS: buPROPion XL 300 MG TABCR PO SCH (07:57)
[2023-01-03] MEDS: POLYETHYLENE (MIRALAX) 17 GM PACK PO SCH (07:58)
[2023-01-03 08:03] LABS: Basophils # (auto) 0.04 K/uL (0-0.2); Eosinophils # (auto) 0.16 K/uL (0-0.50); Eosinophils % (auto) 4.1 %; Hematocrit (blood only) 31.1 % (42.0-52.0); Hemoglobin 10.5 g/dl (14.0-18.0); Immature Granulocytes # (auto) 0.02 K/uL (0.01-0.20); Immature Granulocytes % (auto) 0.5 %; Lymphocytes # (auto) 0.78 K/uL (1.2-3.4); Lymphocytes % (auto) 20.1 %; Mean Corpuscular Hemoglobin 30.3 pg (25.0-34.0); Mean Corpuscular Hgb Conc 33.8 g/dL (32.0-36.0); Mean Corpuscular Volume 89.6 fL (80.0-100.0); Mean Platelet Volume 9.1 fL (9.4-12.4); Monocytes # (auto) 0.42 K/uL (0.11-0.59); Monocytes % (auto) 10.8 %; Neutrophils # (auto) 2.46 K/uL (1.40-6.50); Neutrophils % (auto) 63.5 %; Platelet Count 260 K/uL (130-400); RDW Coefficient of Variation 13.6 % (11.5-14.5); RDW Standard Deviation 44.1 fL (36.4-46.3); Red Blood Count 3.47 M/uL (4.70-6.10); White Blood Count 3.88 K/ul (4.8-10.8)
[2023-01-03] MEDS ORDERED: DOCUSATE SODIUM/SENNA 50/8.6MG TAB PO SCH (09:00)
[2023-01-03] MEDS ORDERED: MAGNESIUM HYDROXIDE SUSP 30 ML UDC PO SCH (09:00)
[2023-01-03] MEDS ORDERED: PANTOprazole 40 MG TAB PO SCH (09:00)
--- NOTE | 2023-01-03 11:41 | Discharge Summary ---
Date of Service January 03, 2023 Admission HPI Per Admitting Provider Trial Hammad is a 72-year-old male who presented with nausea/vomiting/diarrhea of approximately [address] concerning for cholecystitis. Patient has a past history of type II DM, hyperlipidemia, hypertension, restless leg syndrome. No history of CAD. 3 weeks nausea, vomiting, poor appetite, and liquid diarrhea without blood/melena. No pain. No fever/chjills. Seen in [place], [place] as outpt concerning for lena and was referred to ER. Maybe 1x feeling hot and sweaty, otherwise no fevers/chills. No ches tpain or chest pain. No hx heart disease. No hx cardiac disease, no kidney disease, no hx of blood clots, no hx blood thinner use. No pulmonary disease. Has has symptoms like this periodically. Appetite is greatly diminished. Medical History: Reviewed Medications: Reviewed Surgical History: Reviewed Allergies: Reviewed Social History: No tobacco use. Social alcohol use, less than 2-3x/month. No rec drug use Code Status: DNR?DNI Principal Diagnosis Acute cholecystitis, acute blood loss anemia Discharge Exam General-alert and oriented x3, no fevers, no chills HEENT-head atraumatic and normocephalic, pupils equal and reactive to light, extraocular muscles intact Neck-no lymphadenopathy or thyromegaly, trachea midline Chest-clear to auscultation percussion. No rales wheezing or rhonchi Cardiac-regular rate and rhythm, normal S1 and S2 Abdomen-normal bowel sounds, no hepatosplenomegaly. Post op drain is in place in the right upper quadrant. Laparoscopic sites are unremarkable Extremities-no cyanosis, clubbing, or edema Neuro-cranial nerves II through XII intact, motor and sensory function within normal limits, strength symmetrical , no focal deficits Psych-normal affect, normal mood Discharge Data Allergies Allergy/AdvReac Type Severity Reaction Status Date / Time lisinopril AdvReac Intermediate Cough Verified 12/29/22 17:40 ropinirole AdvReac Intermediate thoughts Verified 12/29/22 17:40 of gambling Consultations 12/29/22 17:34 ED Decision to Admit Stat 12/29/22 21:17 Consult General Surgery Routine Procedures Performed Operation Date: 12/30/22 15:50 Actual Procedures p Laparoscopic Cholecystectomy(Not Applicable) - Home Moreno DO, FACS Ordered Studies 12/29/22 16:21 US gallbladder Stat Hospital Course (1) Acute cholecystitis: Admitted on account of nausea and vomiting CT in [place] showed alcalculous cholecystitis HIDA scan here suggested acute cholecystitis Will undergo lap lena per surgery 3/4-patient status post lap cholecystectomy Improving postsurgery Drain serous and no BM yet IV fluids to restore volume status and if patient continues to improve plan DC in next 24 to 48 hours 3/5-patient reports improvement in his nausea Oral intake is improved but still patient appears dry We will continue IV fluids and no bowel movement yet We will start lactulose to assist with bowel movement Change IV antibiotics to oral and DC in a.m. Recheck general surgery to decide on removing LISA drain as drainage is minimal 01/03-surgery entry noted. He will be discharged today, January 03, with the right upper quadrant drain in place. This will be removed later this week (2) Nausea & vomiting: Possibly secondary to acute cholecystitis. Now resolved. Treated while hospitalized with Zofran PRN (3) Diabetes mellitus: Eventual advancement to ADA diet. Eventual resumption of usual home medications and basal insulin therapy. Sliding scale coverage as needed (4) Hypertension: Not on any meds at home. He will follow-up with his PCP for further management (5) Hypercholesterolemia: Stable. Continue statin therapy (6) S/P laparoscopic procedure: Stable postoperatively after laparoscopic cholecystectomy. Surgical management. He will be discharged with a drain in place (7) Intraabdominal mass: Now resolved. He underwent laparoscopic cholecystectomy Plan Home today, January 03, with right upper quadrant drain in place Total Time Total Time Spent Total Time Spent (In Minutes): 40 minutes Discharge Plan Discharge Items Patient Disposition: Home - Self-Care Reason For Visit: GAL BLADDER TROUBLES Discharge Diagnosis: laparoscopic cholecystectomy Condition on Discharge: Fair Activity: Per Instructions section Lifting: No more than 10 pounds Bathing Comment: may shower; no soaking in tubs/pools Exercise/Sports: Wait until after follow-up appointment Driving/Machine Use: no driving while taking narcotics for pain Non-emergency contact: Primary Care Provider and Surgeon Call non-emergency contact if: you have any medication questions, your symptoms worsen, your pain is not controlled, your pain is concerning for you, you have a fever, your temperature is above 101.5, your wound has increased redness, your wound has increased drainage and your wound pain has increased Follow-up/Referrals: Jaime Lyle MD [Primary Care Provider] - Home Moreno DO, FACS [Physician] - (Please call to schedule follow up in clinic next 01/06/23 for drain removal and follow up) Diet: Carb Consistent or DM2 and Low Fat Addtl Attending Provider Instructions: please care for your surgical drain as instructed prior to discharge. Empty drain 2-3x/daily and record. See surgery doctor later this week for drain removal Avoid constipation- * May Use Senokot S and Milk of Magnesium twice daily as directed on the package Pending Studies at Discharge: No Stand-Alone Forms: [employer], Smoking Cessation Medications and DC Order Prescriptions: New oxycodone-acetaminophen [Percocet] 5-325 mg tablet 1 - 2 tab PO .q4-6h PRN (Reason: pain, for initial therapy, max 6 tabs per day) Qty: 15 0RF amoxicillin-pot clavulanate 875-125 mg tablet 1 tab PO Q12H Qty: 14 0RF Continued (DME) OneTouch Verio test strips Strip See Rx Instructions .ROUTE .MEDSUPPLY Qty: 100 7RF Rx Instructions: As directed Test 3x/day E11.9 gabapentin 300 mg capsule 300 mg PO TID Qty: 270 2RF fluoxetine [Prozac] 20 mg capsule 20 mg PO QAM Rx Instructions: TOTAL DOSE 60 MG--TAKES WITH 40 MG CAP. metformin 500 mg tablet 1,000 mg PO QAM Qty: 180 3RF atorvastatin 80 mg tablet 80 mg PO QAM Qty: 90 1RF insulin glargine [Lantus Solostar U-100 Insulin] 100 unit/mL (3 mL) insulin pen 43 unit subcut HS Qty: 15 3RF famotidine 20 mg tablet 20 mg PO BID Qty: 60 0RF ondansetron HCl 4 mg tablet 8 mg PO Q8H PRN (Reason: nausea and vomiting) Qty: 30 1RF omeprazole 40 mg capsule,delayed release(DR/EC) 40 mg PO BID Qty: 60 2RF bupropion HCl 300 mg tablet extended release 24 hr 300 mg PO QAM Qty: 90 3RF (DME) pen needle, diabetic [BD Ultra-Fine Yojana Pen Needle] 32 gauge x 5/32" needle See Dose Instructions .ROUTE .MEDSUPPLY Qty: 100 3RF Dose Instruction: As directed Rx Instructions: As directed losartan 100 mg tablet 100 mg PO DAILY Qty: 90 3RF fluoxetine 40 mg capsule 40 mg PO QAM Rx Instructions: TOTAL DOSE 60 MG--TAKES WITH 20 MG CAP. aspirin [Jennifer Low Dose Aspirin] 81 mg Tablet,Delayed Release (Dr/Ec) 81 mg PO QAM Discharge Orders: Discharge Order (Routine); Ordered 01/03/23 Ordered By: Asher Sharma Admission Data Admit Date/Time: 12/29/22 17:49 Attending Provider: Asher Sharma Admit Provider: Miko Alfonso Primary Care Provider: Jaime Lyle Other Providers: Miko Alfonso ; Home Moreno Coding Level of Care Code 55460 INP/OBS DISCH >30 MIN Diagnoses Acute cholecystitis K81.0 Nausea & vomiting R11.2 Diabetes mellitus E11.9 Hypertension I10 Hypercholesterolemia E78.00 S/P laparoscopic procedure Z98.890 Intraabdominal mass R19.00
== END 2023-01-03 13:00 | disposition home or self-care (01) | DRG 418 ==
LOC: ED 14:39 → SUATTDRO 17:49 → 2W 17:49 → 2N 12-31 21:15

== ENCOUNTER 2023-02-19 12:05 | Observation (INO) ==
[2023-02-19] MEDS ORDERED: ONDANSETRON INJ 2 MG/ML 2 ML VIAL IV STA (13:11)
[2023-02-19] MEDS ORDERED: SODIUM CHLORIDE 0.9% 500 ML IV STA (13:11)
--- NOTE | 2023-02-19 13:19 | Emergency Department Note ---
Impression & Plan Nausea & vomiting, Elevated troponin I level ED Provider Note NAME: OLU LU AGE: 72 SEX: M : 1950 ARRIVES VIA: Walk-In INFORMANT: Patient, ED PROVIDER(S): Bigg Mccormick DO CHIEF COMPLAINT: Vomiting HPI: Patient is a 72-year-old male who presented to the emergency department for an evaluation of nausea vomiting. The patient states that he has had similar episodes in the past. He had had his gallbladder out at the beginning of December. He did drink some alcohol earlier in the week. He denies having any fever. He denies having any dizziness or vertigo symptoms. He denies having any weakness in arms or legs. He has no abdominal discomfort at this time. The patient states symptoms became worsened today. He does have a history of diabetes. He states he has been noticing an elevation in his blood sugar around 180. The patient has no medications at home for vomiting. ROS: See above HPI for pertinent positives & negatives. A total of 10 systems reviewed and were otherwise negative. PAST MEDICAL HISTORY: See Below PAST SURGICAL HISTORY: See Below FAMILY HISTORY: See Below SOCIAL HISTORY: See Below HOME MEDICATIONS: See Below ALLERGIES: See Below VITALS: See Below PHYSICAL EXAMINATION: GENERAL: Patient is awake alert in no acute distress patient is resting comfortably and showing no signs of anxiety EYES: The conjunctivae are clear. The pupils are round and reactive. EARS, NOSE, MOUTH AND THROAT: The nose is without any evidence of any deformity. NECK: The neck is nontender and supple. RESPIRATORY: Normal respiratory effort is noted there is no evidence of wheezing rhonchi or rales CARDIOVASCULAR: Regular rate and rhythm noted there no murmurs rubs or gallops normal S1 normal S2. GASTROINTESTINAL: The abdomen is distended. There is no tenderness guarding or rigidity appreciated. MUSCULOSKELETAL/EXTREMITIES: There is no evidence of gross deformity full range of motion is noted in the hips and shoulders. SKIN: There is no obvious evidence of any rash. There are no petechiae, pallor or cyanosis noted. NEUROLOGIC: Patient is awake alert and oriented x3 strength is symmetric patellar reflexes are 2+ bilaterally MEDICAL DECISION MAKING: The patient is a 72-year-old male who presented to the emergency department for an evaluation of nausea. The patient had no specific pain especially abdominal or chest pain. His physical exam was not consistent with acute surgical abdomen. Given his age and comorbidities further laboratory and radiographic studies were obtained. The patient's had such nausea and vomiting that he was not able to take his morning medications. He was found to have nonspecific T wave abnormalities on his EKG but it looks very close to his previous EKG. The patient's troponin was found to be elevated. Given the fact that he has a history of diabetes this could be angina presenting with nausea. I discussed the patient's laboratory and radiographic studies with him. Given his findings I discussed his condition with the on-call [facility] hospitalist. Triage Nursing notes reviewed. Prior medical records reviewed Vital Signs: reviewed and remarkable for no significant abnormalities Differential diagnosis: Gastroenteritis, food borne illness, infections, appendicitis, diverticulitis, inflammatory bowel disease, obstruction, GI bleed, biliary pathology, volvulus, as well as other pathologies. ER treatment provided: See below Diagnostics interpreted by me: ECG: EKG was obtained in the emergency department. My interpretation is normal sinus rhythm at 90 bpm. Early transition was noted. There is no acute ST segment abnormalities noted. This was compared to a tracing from September 28, 2021. No changes were noted. Cardiac Monitoring: An order was placed for continuous cardiac monitoring. The monitor shows a rate of 93 bpm with sinus rhythm. Laboratory studies: As stated above and show below. Imaging studies: See below. Radiographic imaging was reviewed by myself Consultation(s): I discussed this case with Dr. Bonner [facility] 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 History of carpal tunnel surgery left History of cataract surgery bilateral History of laparoscopic cholecystectomy 30 December 2022, Dr. Moreno, acalculus cholecystitis History of removal of Port-a-Cath (10/23/21) Infusaport Removal - Home Moreno DO, FACS 10/23/2021 History of tonsillectomy Port-A-Cath in place (06/24/21) Diagnostic Laparoscopy with Biopsy of the Mesentery and Peritoneum, Insertion of A-Port - Home Moreno DO, FACS Family History Mother Diabetes Type 2 diabetes mellitus Hypercholesteremia Sister Diabetes Hypercholesteremia Hypertension Father Stomach cancer Myocardial infarction Cancer Other Family history non-contributory No family history of adverse response to anesthesia Denies family history of Ovarian cancer Prostate cancer Breast cancer Colorectal cancer Social History Smoking Status: Former smoker Tobacco Type: Cigarettes Age Started Using Tobacco: 14; Age Quit Using Tobacco: 50; Second Hand Exposure: No; Hx Alcohol Use: No Hx Substance Use: No Preferred Language: Australian Communication Ability: Effective Visual Impairment: Limited Hearing Ability: Use of Hearing Aid Sword Swallower Required: No Beliefs That Will Affect Care: None marital status: Current Living Situation: Spouse current occupational status: retired 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 How many Children do You have: 1 Feels Safe at Home: Yes Childhood Exposure to Second-Hand Smoke: Yes (Father smoked ) Diet Comment: Regular diet caffeine: Yes (Coffee ) during the past year weight has: decreased > 10 lbs Dental Care, Regularly: Yes Physical Activity Frequency: Does not Exercise Seatbelt Use: never Sunscreen Use: No Do you think of yourself as: straight/heterosexual Gender Identity: Male Assistive Devices: None Allergies Allergies Allergy/AdvReac Type Severity Reaction Status Date / Time lisinopril AdvReac Intermediate Cough Verified 02/08/23 08:07 ropinirole AdvReac Intermediate thoughts Verified 02/08/23 08:07 of gambling Home Meds Home Medications Medication Instructions Recorded Confirmed fluoxetine 40 mg capsule 40 mg PO QAM 06/02/21 02/19/23 fluoxetine 20 mg capsule (Prozac) 20 mg PO QAM 08/06/22 02/19/23 ondansetron HCl 4 mg tablet 4 mg PO Q12 PRN Nausea 02/19/23 02/19/23 Previous Rx's Medication Instructions Recorded pen needle, diabetic 32 gauge x #100 ea 05/06/19" (BD Ultra-Fine Yojana Pen Needle) bupropion HCl 300 mg 24 hr tablet, 300 mg PO QAM #90 tabs 12/23/20 extended release gabapentin 300 mg capsule 300 mg PO TID #270 caps 07/26/22 omeprazole 40 mg capsule,delayed 40 mg PO BID #60 caps 07/28/22 release metformin 500 mg tablet 1,000 mg PO QAM #180 tabs 09/09/22 atorvastatin 80 mg tablet 80 mg PO QAM #90 tabs 09/15/22 insulin glargine 100 unit/mL (3 43 unit (0.43 mL) subcut HS #15 12/15/22 mL) subcutaneous pen (Lantus syringes Solostar U-100 Insulin) famotidine 20 mg tablet 20 mg PO BID #60 tabs 12/29/22 blood sugar diagnostic (OneTouch #100 ea 02/01/23 Verio test strips) hydrochlorothiazide 25 mg tablet 25 mg PO DAILY #90 tabs 02/08/23 losartan 100 mg tablet 100 mg PO DAILY #90 tabs 02/18/23 Results & Data (ED) Vital Signs Vital Signs - 24 hr 02/19/23 12:06 02/19/23 12:34 02/19/23 13:11 Temperature 36.6 C Temperature Source Temporal Artery Scan Pulse Rate 95 H 93 H Respiratory Rate 16 Blood Pressure 178/113 H Blood Pressure Mean 134 Pulse Oximetry 97 Oxygen Delivery Method Room Air Sepsis Recent Fever Within 48 Hours No Sepsis New/Unexplained Change in Mental Status N/A Sepsis Action Taken by Nursing No Action Required Home Medications Current Medication List: was personally reviewed by me Laboratory Data Attestation: I reviewed the patient's lab results. 02/19/23 12:31 02/19/23 12:31 Lab Results 02/19/23 02/19/23 02/19/23 Range/Units 12:31 12:31 12:31 WBC 6.58 (4.8-10.8) K/ul RBC 4.88 (4.70-6.10) M/uL Hgb 14.7 (14.0-18.0) g/dl Hct 42.4 (42.0-52.0) % MCV 86.9 (80.0-100.0) fL MCH 30.1 (25.0-34.0) pg MCHC 34.7 (32.0-36.0) g/dL RDW Std Deviation 45.0 (36.4-46.3) fL RDW Coeff of Beck 14.1 (11.5-14.5) % Plt Count 243 (130-400) K/uL MPV 8.9 L (9.4-12.4) fL Immature Gran % (Auto) 0.2 % Neut % (Auto) 75.6 % Lymph % (Auto) 14.9 % Ross % (Auto) 8.2 % Eos % (Auto) 0.6 % Baso % (Auto) 0.5 % Neut # (Auto) 4.98 (1.40-6.50) K/uL Lymph # (Auto) 0.98 L (1.2-3.4) K/uL Ross # (Auto) 0.54 (0.11-0.59) K/uL Eos # (Auto) 0.04 (0-0.50) K/uL Baso # (Auto) 0.03 (0-0.2) K/uL Immature Gran # (Auto) 0.01 (0.01-0.20) K/uL PT 11.0 (9.0-12.0) Seconds INR 1.0 (0.9-1.1) APTT 24.9 (21.0-31.0) Seconds PTT Ratio 0.9 Sodium 135 L (136-145) mmol/L Potassium 3.5 (3.5-5.1) mmol/L Chloride 101 (98-107) mmol/L Carbon Dioxide 26 (21-32) mmol/L Anion Gap 8 (3-11) BUN 35 H (6-23) mg/dl Creatinine 0.96 (0.6-1.4) mg/dl Est Cr Clr Drug Dosing 85.1 ml/min Est GFR ( Amer) 89.9 ml/min Est GFR (Non-Af Amer) 77.6 ml/min BUN/Creatinine Ratio 36.5 H (10-20) Glucose 153 H (70-99(Fasting)) mg/dl Calcium 10.3 (8.6-10.3) mg/dl Total Bilirubin 1.6 H (0.2-1.0) mg/dl AST 16 (13-39) U/L ALT 22 (7-52) U/L Alkaline Phosphatase 179 H (34-104) U/L Troponin I High Sens 60.0 H* (0-20) pg/ml Total Protein 8.0 (6.0-8.3) gm/dl Albumin 4.4 (3.4-5.0) gm/dl Globulin 3.6 (2.5-4.0) gm/dl Albumin/Globulin Ratio 1.2 (0.9-2) Lipase 10 L (11-82) U/L Urine Color Urine Appearance (Clear) Urine pH (4.5-7.5) Ur Specific Dewey (1.000-1.030) Urine Protein (Negative) Urine Glucose (UA) (Negative) Urine Ketones (Negative) Urine Blood (Negative) Urine Nitrite (Negative) Urine Bilirubin (Negative) Urine Urobilinogen (Negative) Ur Leukocyte Esterase (Negative) Urine WBC (Auto) (0-5) /hpf Urine RBC (Auto) (0-4) /hpf U Hyaline Cast (Auto) (0-5) /lpf U Epithel Cells (Auto) (0-5) /lpf Urine Bacteria (Auto) (Negative) 02/19/23 Range/Units 14:43 WBC (4.8-10.8) K/ul RBC (4.70-6.10) M/uL Hgb (14.0-18.0) g/dl Hct (42.0-52.0) % MCV (80.0-100.0) fL MCH (25.0-34.0) pg MCHC (32.0-36.0) g/dL RDW Std Deviation (36.4-46.3) fL RDW Coeff of Beck (11.5-14.5) % Plt Count (130-400) K/uL MPV (9.4-12.4) fL Immature Gran % (Auto) % Neut % (Auto) % Lymph % (Auto) % Ross % (Auto) % Eos % (Auto) % Baso % (Auto) % Neut # (Auto) (1.40-6.50) K/uL Lymph # (Auto) (1.2-3.4) K/uL Ross # (Auto) (0.11-0.59) K/uL Eos # (Auto) (0-0.50) K/uL Baso # (Auto) (0-0.2) K/uL Immature Gran # (Auto) (0.01-0.20) K/uL PT (9.0-12.0) Seconds INR (0.9-1.1) APTT (21.0-31.0) Seconds PTT Ratio Sodium (136-145) mmol/L Potassium (3.5-5.1) mmol/L Chloride (98-107) mmol/L Carbon Dioxide (21-32) mmol/L Anion Gap (3-11) BUN (6-23) mg/dl Creatinine (0.6-1.4) mg/dl Est Cr Clr Drug Dosing ml/min Est GFR ( Amer) ml/min Est GFR (Non-Af Amer) ml/min BUN/Creatinine Ratio (10-20) Glucose (70-99(Fasting)) mg/dl Calcium (8.6-10.3) mg/dl Total Bilirubin (0.2-1.0) mg/dl AST (13-39) U/L ALT (7-52) U/L Alkaline Phosphatase (34-104) U/L Troponin I High Sens (0-20) pg/ml Total Protein (6.0-8.3) gm/dl Albumin (3.4-5.0) gm/dl Globulin (2.5-4.0) gm/dl Albumin/Globulin Ratio (0.9-2) Lipase (11-82) U/L Urine Color Dark Yellow Urine Appearance Clear (Clear) Urine pH 7.0 (4.5-7.5) Ur Specific Dewey 1.022 (1.000-1.030) Urine Protein 2+ H (Negative) Urine Glucose (UA) Negative (Negative) Urine Ketones 1+ H (Negative) Urine Blood Negative (Negative) Urine Nitrite Negative (Negative) Urine Bilirubin Negative (Negative) Urine Urobilinogen Positive H (Negative) Ur Leukocyte Esterase Negative (Negative) Urine WBC (Auto) 1-5 (0-5) /hpf Urine RBC (Auto) 5-10 H (0-4) /hpf U Hyaline Cast (Auto) 1-5 (0-5) /lpf U Epithel Cells (Auto) 20-30 H (0-5) /lpf Urine Bacteria (Auto) Negative (Negative) Administered Medications Discontinued Medications Sodium Chloride (Nss) 500 mls @ 999 mls/hr IV .Q31M STA Stop: 02/19/23 13:41 Last Admin: 02/19/23 13:21 Dose: 999 mls/hr Documented By: MAGDI Ondansetron HCl (Ondansetron Inj 2 Mg/Ml 2 Ml Vial) 4 mg IV NOW STA Stop: 02/19/23 13:12 Last Admin: 02/19/23 13:17 Dose: 4 mg Documented By: MAGDI Imaging Data Attestation: I personally reviewed and interpreted this imaging study as follows: My Impression: 1 view chest x-ray was obtained in the emergency department. My interpretation is no acute disease, no free air, final report below. Radiologist's Impression: Chest X-Ray 02/19/23 13:11 XR chest 1V portable, XR KUB/Abdomen 1 view HISTORY: 72 years-old Male vomiting acute chest and abdominal pain with nausea and vomiting COMPARISON: Chest radiograph 06/24/2021 TECHNIQUE: AP view the chest with KUB radiograph FINDINGS: CHEST: Mild left hemidiaphragmatic elevation. Cardiomegaly. No pneumothorax, pleural effusion, airspace consolidation or pulmonary edema. Degenerative changes of the shoulders and spine. KUB: Surgical clips of the left abdomen. Mildly dilated air-filled loops of small bowel measure up to approximately 4 cm. No urolith identified. No acute fracture is seen. Mild lumbar levoscoliosis with degenerative changes of the lumbar spine. Osteoarthritis of the hips. IMPRESSION: 1. No acute processes of the chest. 2. There are a few mildly dilated air-filled loops of small bowel within the abdomen. Differential considerations include enteritis/ileus versus developing obstruction. Follow-up recommended. ACT 112: Negative or not required by law. The above report was generated using voice recognition software. It may contain grammatical, syntax or spelling errors. Electronically signed by: Sim Flood M.D. 02/19/2023 2:06 PM KUB X-Ray 02/19/23 13:11 XR chest 1V portable, XR KUB/Abdomen 1 view HISTORY: 72 years-old Male vomiting acute chest and abdominal pain with nausea and vomiting COMPARISON: Chest radiograph 06/24/2021 TECHNIQUE: AP view the chest with KUB radiograph FINDINGS: CHEST: Mild left hemidiaphragmatic elevation. Cardiomegaly. No pneumothorax, pleural effusion, airspace consolidation or pulmonary edema. Degenerative changes of the shoulders and spine. KUB: Surgical clips of the left abdomen. Mildly dilated air-filled loops of small bowel measure up to approximately 4 cm. No urolith identified. No acute fracture is seen. Mild lumbar levoscoliosis with degenerative changes of the lumbar spine. Osteoarthritis of the hips. IMPRESSION: 1. No acute processes of the chest. 2. There are a few mildly dilated air-filled loops of small bowel within the abdomen. Differential considerations include enteritis/ileus versus developing obstruction. Follow-up recommended. ACT 112: Negative or not required by law. The above report was generated using voice recognition software. It may contain grammatical, syntax or spelling errors. Electronically signed by: Sim Flood M.D. 02/19/2023 2:06 PM Discharge Plan Visit Data Chief Complaint: Vomiting Stated Complaint: VOMITING ED Provider: Bigg Mccormick Discharge Problem: Nausea & vomiting, Elevated troponin I level Patient Disposition: Being Evaluated by Hospitalist Forms Stand Alone Forms: My [facility] [employer] Prescriptions Prescriptions: No Action gabapentin 300 mg capsule 300 mg PO TID Qty: 270 2RF fluoxetine [Prozac] 20 mg capsule 20 mg PO QAM Rx Instructions: TOTAL DOSE 60 MG--TAKES WITH 40 MG CAP. metformin 500 mg tablet 1,000 mg PO QAM Qty: 180 3RF atorvastatin 80 mg tablet 80 mg PO QAM Qty: 90 1RF insulin glargine [Lantus Solostar U-100 Insulin] 100 unit/mL (3 mL) insulin pen 43 unit subcut HS Qty: 15 3RF (DME) OneTouch Verio test strips Strip See Rx Instructions .ROUTE .MEDSUPPLY Qty: 100 7RF Rx Instructions: As directed Test 3x/day E11.9 losartan 100 mg tablet 100 mg PO DAILY Qty: 90 3RF famotidine 20 mg tablet 20 mg PO BID Qty: 60 0RF omeprazole 40 mg capsule,delayed release(DR/EC) 40 mg PO BID Qty: 60 2RF bupropion HCl 300 mg tablet extended release 24 hr 300 mg PO QAM Qty: 90 3RF (DME) pen needle, diabetic [BD Ultra-Fine Yojana Pen Needle] 32 gauge x 5/32" needle See Dose Instructions .ROUTE .MEDSUPPLY Qty: 100 3RF Dose Instruction: As directed Rx Instructions: As directed hydrochlorothiazide 25 mg tablet 25 mg PO DAILY Qty: 90 1RF fluoxetine 40 mg capsule 40 mg PO QAM Rx Instructions: TOTAL DOSE 60 MG--TAKES WITH 20 MG CAP. ondansetron HCl 4 mg tablet 4 mg PO Q12 PRN (Reason: Nausea) Referrals Referrals: Jaime Lyle MD [Primary Care Provider] -
[2023-02-19 13:49] LABS: Basophils # (auto) 0.03 K/uL (0-0.2); Basophils % (auto) 0.5 %; Eosinophils # (auto) 0.04 K/uL (0-0.50); Eosinophils % (auto) 0.6 %; Hematocrit (blood only) 42.4 % (42.0-52.0); Hemoglobin 14.7 g/dl (14.0-18.0); Immature Granulocytes # (auto) 0.01 K/uL (0.01-0.20); Immature Granulocytes % (auto) 0.2 %; Lymphocytes # (auto) 0.98 K/uL (1.2-3.4); Lymphocytes % (auto) 14.9 %; Mean Corpuscular Hemoglobin 30.1 pg (25.0-34.0); Mean Corpuscular Hgb Conc 34.7 g/dL (32.0-36.0); Mean Corpuscular Volume 86.9 fL (80.0-100.0); Mean Platelet Volume 8.9 fL (9.4-12.4); Monocytes # (auto) 0.54 K/uL (0.11-0.59); Monocytes % (auto) 8.2 %; Neutrophils # (auto) 4.98 K/uL (1.40-6.50); Neutrophils % (auto) 75.6 %; Platelet Count 243 K/uL (130-400); RDW Coefficient of Variation 14.1 % (11.5-14.5); Red Blood Count 4.88 M/uL (4.70-6.10); White Blood Count 6.58 K/ul (4.8-10.8)
--- NOTE | 2023-02-19 14:07 | XRay Report ---
XR chest 1V portable, XR KUB/Abdomen 1 view HISTORY: 72 years-old Male vomiting acute chest and abdominal pain with nausea and vomiting COMPARISON: Chest radiograph 06/24/2021 TECHNIQUE: AP view the chest with KUB radiograph FINDINGS: CHEST: Mild left hemidiaphragmatic elevation. Cardiomegaly. No pneumothorax, pleural effusion, airspace cons olidation or pulmonary edema. Degenerative changes of the shoulders and spine. KUB: Surgical clips of the left abdomen. Mildly dilated air-filled loops of small bowel measure up to appr oximately 4 cm. No urolith identified. No acute fracture is seen. Mild lumbar levoscoliosis with dege nerative changes of the lumbar spine. Osteoarthritis of the hips. IMPRESSION: 1. No acute processes of the chest. 2. There are a few mildly dilated air-filled loops of small bowel within the abdomen. Differential co nsiderations include enteritis/ileus versus developing obstruction. Follow-up recommended. ACT 112: Negative or not required by law. The above report was generated using voice recognition software. It may contain grammatical, syntax o r spelling errors. Electronically signed by: Sim Flood M.D. 02/19/2023 2:06 PM
[2023-02-19 14:09] LABS: Albumin Globulin Ratio 1.2 (0.9-2); Albumin Level 4.4 gm/dl (3.4-5.0); BUN Creatinine Ratio 36.5 (10-20); Bilirubin,Total 1.6 mg/dl (0.2-1.0); Calcium 10.3 mg/dl (8.6-10.3); Creatinine Clr Calc Pharmacy 85.1 ml/min; Est GFR (African American) 89.9 ml/min; Est GFR (Non-African American) 77.6 ml/min; Globulin 3.6 gm/dl (2.5-4.0); Potassium 3.5 mmol/L (3.5-5.1)
[2023-02-19 14:14] LABS: Partial Thromboplastin Ratio 0.9; Partial Thromboplastin Time 24.9 Seconds (21.0-31.0)
[2023-02-19 15:26] LABS: Appearance Urine Clear (Clear); Bacteria Urine Automated Negative (Negative); Bilirubin Urine Negative (Negative); Blood Urine Negative (Negative); Color Urine Dark Yellow; Epithelial Cell Urine Auto 20-30 /lpf (0-5); Glucose Urine UA Negative (Negative); Ketones Urine 1+ (Negative); Leukocyte Esterase Urine Negative (Negative); Nitrite Urine Negative (Negative); Protein Urine 2+ (Negative); Specific Gravity Urine 1.022 (1.000-1.030); Urobilinogen Urine Positive (Negative)
[2023-02-19] MEDS ORDERED: PANTOprazole 40 MG in SYRINGE 0 ML IV ONE (15:42)
[2023-02-19] MEDS ORDERED: FAMOTIDINE 20 MG in SYRINGE 3 ML IV ONE (15:42)
[2023-02-19] MEDS ORDERED: FAMOTIDINE 20MG/5ML IV PUSH IV ONE (16:02)
--- NOTE | 2023-02-19 16:03 | History & Physical Report ---
Date of Service February 19, 2023 Assessment & Plan (1) Nausea & vomiting: Plan: -Admit to med/tele -The patient is currently afebrile, hemodynamically stable, and stable on RA -The patient has a long history of intermittent nausea and vomiting, had similar symptoms last month and was eventually found to have gangrenous cholecystitis S/P lap cholecystectomy -Symptoms recurred on 02/16 after drinking during the day, denies recreational drug use, could be a component of gastritis or gastroparesis with his hx of DM -Will obtain CT of the abd/pelvis with IV con for further evaluation -Will give 20 mg IV famotidine and 40 mg IV pantoprazole now and monitor for improvement in symptoms -PRN zofran ordered -Will start clear liquid diet after his CT results -BL SCD's and Sub-Q lovenox for DVT PPX -AM CBC, CMP, Mag (2) Elevated troponin I level: Plan: -Initial high sen trop elevated at 60 -He is without chest pain or other chest discomfort -His ECG shows new T-wave inversions in the anterior leads compared to his last ECG -Will repeat another high sen trop STAT and monitor on tele for now (3) Hypertension: Plan: -Was initially hypertensive with systolics in the 170's on presentation, now down to systolics in the 140's without intervention -Has not had his antihypertensives since 02/16 -Will hold antihypertensives for now as he is stable, if CT is WNL can restart with his diet (4) Diabetes mellitus, type 2: Plan: -Hold metformin -Monitor BSG q4h while NPO -Will start 15 units lantus BID (normally takes 43 units am) -CF of 50 and CR of 15 when he can eat -Adjust regimen as needed (5) Depression with anxiety: Plan: -Continue Fluoxetine (6) Dyslipidemia: Plan: -Continue statin Plan -The patient was discussed with Dr. Bonner at the time of the admission History of Present Illness Chief Complaint: Nausea and vomiting Primary Care Provider: Jaime Lyle MD Corbin is a 72 year old male with a PMH significant for type II DM, HTN, and recent Gangrenous acalculous cholecystitis S/P laparoscopic cholecystectomy with Dr. Moreno at [facility] on 12/30/22 with a chief complaint nausea and vomiting. In the ED vitals were noted to be stable. Labs were significant for a total bili of 1.6, Alk phos of 179, initial high sen trop of 60. Chest xary was negative for acute pulmonary findings but did show possible signs of ileus vs enteritis. We were asked to admit for further assessment and treatment due to his recent admission with similar symptoms. Prior to admission the patient was given a 500 mL NSS bolus and 4 mg IV morphine. At the time of the exam the patient was sitting in bed in no acute distress with is sitting bedside. He states that he had been in his normal state of health until 02/16. He had multiple Gin Cocktails earlier in the day, he does not think that he had too much to drink but his said that he was fairly intoxicated. Shortly after he finished his last drink he started to develop nausea and vomiting. He denies hematemesis or coffee ground emesis. Since 02/16 he has been unable to keep solids or liquids down. His nausea and vomiting are intermittent and not solely associated with eating or drinking. He has a long history of issues with nausea and vomiting. He states that he can go 6 months without having an episode then have them out of the blue. His symptoms were similar when he had his cholecystectomy and denies other previous abd surgeries. He has never been evaluated by GI and has never had an EGD or gastric emptying study. When asked, he states that he has not been taking his prescribed omeprazole for a few months, he is not sure why he was told to stop it previously. He has still been taking his famotidine BID. He was a 20 year smoker approximately 20 years ago and denies recreational drug use. Currently his symptoms are controlled after receiving the zofran. He is a full code and would want his to make medical decisions for him if he cannot make them himself. Please refer to Dr. Bonner's attestation for any changes to the treatment plan Allergies Allergy/AdvReac Type Severity Reaction Status Date / Time lisinopril AdvReac Intermediate Cough Verified 02/08/23 08:07 ropinirole AdvReac Intermediate thoughts Verified 02/08/23 08:07 of gambling Home Medications Medication Instructions Recorded Confirmed Type pen needle, diabetic 32 gauge x #100 ea 05/06/19 02/19/23 Rx 5/32" (BD Ultra-Fine Yojana Pen Needle) bupropion HCl 300 mg 24 hr tablet, 300 mg PO QAM #90 tabs 12/23/20 02/19/23 Rx extended release fluoxetine 40 mg capsule 40 mg PO QAM 06/02/21 02/19/23 History fluoxetine 20 mg capsule (Prozac) 20 mg PO QAM 08/06/22 02/19/23 History metformin 500 mg tablet 1,000 mg PO QAM #180 tabs 09/09/22 02/19/23 Rx atorvastatin 80 mg tablet 80 mg PO QAM #90 tabs 09/15/22 02/19/23 Rx insulin glargine 100 unit/mL (3 43 unit (0.43 mL) subcut HS #15 12/15/22 02/19/23 Rx mL) subcutaneous pen (Lantus syringes Solostar U-100 Insulin) famotidine 20 mg tablet 20 mg PO BID #60 tabs 12/29/22 02/19/23 Rx blood sugar diagnostic (OneTouch #100 ea 02/01/23 02/19/23 Rx Verio test strips) hydrochlorothiazide 25 mg tablet 25 mg PO DAILY #90 tabs 02/08/23 02/19/23 Rx losartan 100 mg tablet 100 mg PO DAILY #90 tabs 02/18/23 02/19/23 Rx gabapentin 300 mg capsule 300 mg PO TID 02/19/23 02/19/23 History metoclopramide HCl 5 mg tablet 5 mg PO Q6H PRN nausea and 02/20/23 Rx vomiting #30 tabs Past Med/Surg History Medical History Acute ITP Depression with anxiety Diabetes mellitus Diabetes mellitus, type 2 IDDM Diabetic nephropathy associated with type 2 diabetes mellitus Hypercholesterolemia Hyperlipidemia Hypertension Hypothyroidism Pt denies TSH WNL in 10/2020- patient not on thyroid meds Restless legs syndrome (RLS) 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 History of carpal tunnel surgery left History of cataract surgery bilateral History of laparoscopic cholecystectomy 30 December 2022, Dr. Moreno, acalculus cholecystitis History of removal of Port-a-Cath (10/23/21) Infusaport Removal - Home Moreno DO, FACS 10/23/2021 History of tonsillectomy Port-A-Cath in place (06/24/21) Diagnostic Laparoscopy with Biopsy of the Mesentery and Peritoneum, Insertion of A-Port - Home Moreno DO, ROVERTO Family History Mother Diabetes Type 2 diabetes mellitus Hypercholesteremia Sister Diabetes Hypercholesteremia Hypertension Father Stomach cancer Myocardial infarction Cancer Other Family history non-contributory No family history of adverse response to anesthesia Denies family history of Ovarian cancer Prostate cancer Breast cancer Colorectal cancer Social History Smoking Status: Former smoker Tobacco Type: Cigarettes Age Started Using Tobacco: 14; Age Quit Using Tobacco: 50; Second Hand Exposure: No; Hx Alcohol Use: Yes Alcohol type: hard liquor Alcohol Intake Frequency: Monthly or Less Hx Substance Use: No Preferred Language: Syrian Communication Ability: Effective Visual Impairment: Limited Hearing Ability: Use of Hearing Aid Ocean Forwarder Required: No Beliefs That Will Affect Care: None marital status: Current Living Situation: Spouse current occupational status: retired 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 How many Children do You have: 1 Feels Safe at Home: Yes Childhood Exposure to Second-Hand Smoke: Yes (Father smoked ) Diet Comment: Regular diet caffeine: Yes (Coffee ) during the past year weight has: decreased > 10 lbs Dental Care, Regularly: Yes Physical Activity Frequency: Does not Exercise Seatbelt Use: never Sunscreen Use: No Do you think of yourself as: straight/heterosexual Gender Identity: Male Assistive Devices: Glasses and Hearing Aid - Bilateral Physical Exam Physical Exam: Physical Exam: General: In no acute distress, stated age, well-nourished, good hygiene HEENT: Normocephalic, atraumatic, no scleral icterus, pupils around round, symmetrical, and reactive to light, moist mucus membranes, trachea midline, no thyromegaly Chest/Pulm: No respiratory distress, symmetrical chest expansion, clear breath sounds throughout Cardiac: RRR, no murmurs noted Abdomen: Negative for ascites and bruising, hyperactive bowel sounds, soft, non-tender to palpation throughout Musculoskeletal: Symmetrical and without signs of acute trauma, upper and lower extremities with full ROM, no atrophy, spasticity, or flaccidity Extremities: Radial, dorsalis pedis, and posterior tibial pulses are intact and symmetrical, no edema noted in the BL LE's Skin: Warm, dry, no rashes , lesions, or scars noted Neuro: Alert and oriented to person, place, month, year, and president, no focal defects, CN II-XII tested and intact, no tremors noted Psych: No acute distress, calm and cooperative during the exam Results & Data Results & Data Vital Signs (Past 12 Hours) Vital Signs Temp Pulse Resp BP Pulse Ox O2 Del Method 02/19/23 13:11 Room Air 02/19/23 12:34 93 H 02/19/23 12:06 36.6 C 95 H 16 178/113 H 97 Laboratory Results Abnormal lab results 02/19/23 02/19/23 02/19/23 Range/Units 12:31 12:31 14:43 MPV 8.9 L (9.4-12.4) fL Lymph # (Auto) 0.98 L (1.2-3.4) K/uL Sodium 135 L (136-145) mmol/L BUN 35 H (6-23) mg/dl BUN/Creatinine Ratio 36.5 H (10-20) Glucose 153 H (70-99(Fasting)) mg/dl Total Bilirubin 1.6 H (0.2-1.0) mg/dl Alkaline Phosphatase 179 H (34-104) U/L Troponin I High Sens 60.0 H* (0-20) pg/ml Lipase 10 L (11-82) U/L Urine Protein 2+ H (Negative) Urine Ketones 1+ H (Negative) Urine Urobilinogen Positive H (Negative) Urine RBC (Auto) 5-10 H (0-4) /hpf U Epithel Cells (Auto) 20-30 H (0-5) /lpf Diagnostic Findings Chest X-Ray 02/19/23 13:11 XR chest 1V portable, XR KUB/Abdomen 1 view HISTORY: 72 years-old Male vomiting acute chest and abdominal pain with nausea and vomiting COMPARISON: Chest radiograph 06/24/2021 TECHNIQUE: AP view the chest with KUB radiograph FINDINGS: CHEST: Mild left hemidiaphragmatic elevation. Cardiomegaly. No pneumothorax, pleural effusion, airspace consolidation or pulmonary edema. Degenerative changes of the shoulders and spine. KUB: Surgical clips of the left abdomen. Mildly dilated air-filled loops of small bowel measure up to approximately 4 cm. No urolith identified. No acute fracture is seen. Mild lumbar levoscoliosis with degenerative changes of the lumbar spine. Osteoarthritis of the hips. IMPRESSION: 1. No acute processes of the chest. 2. There are a few mildly dilated air-filled loops of small bowel within the abdomen. Differential considerations include enteritis/ileus versus developing obstruction. Follow-up recommended. ACT 112: Negative or not required by law. The above report was generated using voice recognition software. It may contain grammatical, syntax or spelling errors. Electronically signed by: Sim Flood M.D. 02/19/2023 2:06 PM KUB X-Ray 02/19/23 13:11 XR chest 1V portable, XR KUB/Abdomen 1 view HISTORY: 72 years-old Male vomiting acute chest and abdominal pain with nausea and vomiting COMPARISON: Chest radiograph 06/24/2021 TECHNIQUE: AP view the chest with KUB radiograph FINDINGS: CHEST: Mild left hemidiaphragmatic elevation. Cardiomegaly. No pneumothorax, pleural effusion, airspace consolidation or pulmonary edema. Degenerative changes of the shoulders and spine. KUB: Surgical clips of the left abdomen. Mildly dilated air-filled loops of small bowel measure up to approximately 4 cm. No urolith identified. No acute fracture is seen. Mild lumbar levoscoliosis with degenerative changes of the lumbar spine. Osteoarthritis of the hips. IMPRESSION: 1. No acute processes of the chest. 2. There are a few mildly dilated air-filled loops of small bowel within the abdomen. Differential considerations include enteritis/ileus versus developing obstruction. Follow-up recommended. ACT 112: Negative or not required by law. The above report was generated using voice recognition software. It may contain grammatical, syntax or spelling errors. Electronically signed by: Sim Flood M.D. 02/19/2023 2:06 PM ECG Additional Comments: Poor data quality, interpretation may be adversely affected Normal sinus rhythm Normal ECG When compared with ECG of 28-SEP-2021 14:14, Nonspecific T wave abnormality now evident in Anterior leads Code Status & VTE Plan Code Status Full code VTE Prophylaxis Plan VTE Prophylaxis will be ordered: Yes Supervising Physician Co-Signing Physician Notes I personally saw and examined the patient. I verified all joiner points and agree with Franco Jensen PA-C with the following exceptions and/or additions: 72 year old male presents to the ER with nausea and vomiting s/p alcohol consumption. Lipase normal. Long time intermittent episodes culminating in recent cholecystectomy with gangrenous gallbladder. Similar episode to his previous episodes O/E A&Ox3, HS RRR, Chest CTAB, Abdo SNT, hyperactive bowel sounds A/P Nausea and vomiting - ongoing episodes of recurrent N&V, CT A/P taken as this is his first episode following cholecystectomy which he hoped would stop these events. Retroperitoneal nodules noted - known history of sclerosing mesenteritis which I suspect now his gallbladder is removed is the cause of his episodes. Recommend follow up with GI and oncology. PG Care Time/CCT Total # of Minutes Spent Total Time Spent with Patient: Total time spent is greater than 50% in coordination of care (as documented) at patient's floor/unit and/or counseling patient: Coding [place] [address] INT INP/OBS CARE 2/55MIN Patient Type Established Medical Decision Making Moderate Complexity Diagnoses Nausea & vomiting R11.2 Vomiting type: unspecified Elevated troponin I level R77.8 Hypertension I10 Diabetes mellitus, type 2 E11.9 Depression with anxiety F41.8 Dyslipidemia E78.5 (1) Nausea & vomiting Vomiting type: unspecified Qualified Code(s): R11.2 - Nausea with vomiting, unspecified
[2023-02-19] MEDS ORDERED: CARBOHYDRATES FOR HYPOGLYCEMIA PO PRN (16:06)
[2023-02-19] MEDS ORDERED: DEXTROSE 50% 50 ML SYRINGE IV PRN (16:06)
[2023-02-19] MEDS ORDERED: GLUCOSE 40% GEL 15 GM TUBE PO PRN (16:06)
[2023-02-19] MEDS ORDERED: GLUCAGON FOR INJ 1 MG VIAL SQ PRN (16:06)
[2023-02-19] MEDS ORDERED: GLUCOSE 10 TAB/TUBE PO PRN (16:06)
[2023-02-19] MEDS ORDERED: INSULIN ASPART PER UNIT CHARGE SC SCH (16:30)
[2023-02-19] MEDS ORDERED: LACTATED RINGER'S 1,000 ML IV SCH (16:30)
[2023-02-19] MEDS ORDERED: ONDANSETRON INJ 2 MG/ML 2 ML VIAL IV PRN (16:44)
[2023-02-19] MEDS ORDERED: OPTIRAY 350 100ml IV ONE (16:56)
--- NOTE | 2023-02-19 17:43 | CT Scan Report ---
ABDOMEN AND PELVIS CT WITH IV CONTRAST CT DOSE: 1108.65 mGy.cm HISTORY: Acute nausea and vomiting with recent cholecystectomy N/V s/p lena TECHNIQUE: Multiaxial CT images of the abdomen and pelvis were performed following the IV administrat ion of 91 cc of Optiray, A dose lowering technique was utilized adhering to the principles of ALARA. COMPARISON STUDY: PET CT 05/25/2021 FINDINGS: Coronary artery calcifications. Clear lung bases. No pneumatosis or pneumoperitoneum. Unrem arkable spleen with trace perisplenic fluid. Mildly atrophic pancreas with a few scattered pancreatic calcifications. Adrenal glands are within normal limits. Surgical clips with stranding and trace flu id within the yandy hepatis. The gallbladder appears to be either completely or partially excised. No postoperative fluid collection. Mild intrahepatic and extrahepatic biliary ductal prominence is like ly postsurgical. Probable cyst of the left hepatic lobe, 10 mm. Patent portal vein. Cortical thinning of the kidneys. Bilateral perinephric stranding. Infiltrating process of the right greater than left renal sinuses. A retroperitoneal/perinephric nodules are again noted including a 1. 6 cm lesion inferior to the right hepatic lobe on image 184 is overall appear to be predominantly sta ble. 1.3 cm precaval lymph node appears unchanged. Urinary bladder wall thickening with partial diste ntion. Prostamegaly. Atherosclerosis of the aorta without aneurysm. Infiltrative focus within the lef t upper quadrant mesentery on image 134 adjacent to the proximal abdomen measuring 3.3 cm. Mild wall thickening of the duodenum. No bowel obstruction. Colonic diverticulosis. Trace ascites. No rmal appendix. Infiltrative soft tissue lesion superior to the urinary bladder appears to have resolv ed in the interval. Unremarkable soft tissues. There are a few healing subacute anterior left-sided r ib fractures noted. No destructive bone lesions are seen. Chronic appearance of the T10, T11 and L1 c ompression deformities. IMPRESSION: 1. Postoperative changes of recent cholecystectomy with trace fluid and edema within the yandy hepati s which are likely expected postoperative changes. No postoperative drainable fluid collection. 2. Mild wall thickening of the duodenum may be reactive. A mild nonspecific duodenitis could appear s imilarly. 3. Retroperitoneal nodules are redemonstrated along with infiltrative processes of the bilateral adrien l sinuses, similar appearance to the PET/CT from 05/25/2021. There is resolution of the previously hong cribed peritoneal lesion within the midline pelvis with increased size of a infiltrative mesenteric l esion within the abdominal left upper quadrant measuring 3.3 cm. Findings are again suggestive of met astatic disease versus lymphoma. Continued follow-up with oncology recommended. 4. Colonic diverticulosis. 5. Additional findings as above. ACT 112: Negative or not required by law. The above report was generated using voice recognition software. It may contain grammatical, syntax o r spelling errors. Electronically signed by: Sim Flood M.D. 02/19/2023 5:40 PM
[2023-02-19] MEDS: GABAPENTIN 300 MG CAP PO SCH (20:48)
[2023-02-19] MEDS ORDERED: ENOXAPARIN INJ 40 MG/0.4 ML SYR SQ SCH (21:00)
[2023-02-19] MEDS ORDERED: GABAPENTIN 300 MG CAP PO SCH (21:00)
[2023-02-19] MEDS: LANTUS PER UNIT CHARGE SQ SCH (21:07)
[2023-02-20] MEDS ORDERED: INSULIN ASPART PER UNIT CHARGE SC SCH
[2023-02-20 07:44] LABS: Basophils # (auto) 0.05 K/uL (0-0.2); Basophils % (auto) 1.2 %; Eosinophils # (auto) 0.15 K/uL (0-0.50); Eosinophils % (auto) 3.5 %; Hematocrit (blood only) 38.1 % (42.0-52.0); Hemoglobin 13.1 g/dl (14.0-18.0); Immature Granulocytes # (auto) 0.03 K/uL (0.01-0.20); Immature Granulocytes % (auto) 0.7 %; Lymphocytes # (auto) 0.99 K/uL (1.2-3.4); Lymphocytes % (auto) 22.9 %; Mean Corpuscular Hgb Conc 34.4 g/dL (32.0-36.0); Mean Corpuscular Volume 87.2 fL (80.0-100.0); Monocytes # (auto) 0.64 K/uL (0.11-0.59); Monocytes % (auto) 14.8 %; Neutrophils # (auto) 2.46 K/uL (1.40-6.50); Neutrophils % (auto) 56.9 %; Platelet Count 181 K/uL (130-400); RDW Standard Deviation 44.2 fL (36.4-46.3); Red Blood Count 4.37 M/uL (4.70-6.10); White Blood Count 4.32 K/ul (4.8-10.8)
[2023-02-20 08:02] LABS: Albumin Globulin Ratio 1.4 (0.9-2); Albumin Level 3.8 gm/dl (3.4-5.0); BUN Creatinine Ratio 34.4 (10-20); Bilirubin,Total 1.4 mg/dl (0.2-1.0); Calcium 9.8 mg/dl (8.6-10.3); Est GFR (African American) 97.2 ml/min; Est GFR (Non-African American) 83.8 ml/min; Globulin 2.7 gm/dl (2.5-4.0); Magnesium 1.9 mg/dl (1.7-2.4); Potassium 3.3 mmol/L (3.5-5.1); Total Protein 6.5 gm/dl (6.0-8.3)
[2023-02-20] MEDS ORDERED: METOCLOPRAMIDE HCL INJ 5 MG/ML 2 ML VIAL IV SCH (08:15)
[2023-02-20 08:18] LABS: Prothrombin Time 11.2 Seconds (9.0-12.0)
[2023-02-20] MEDS: INSULIN ASPART PER UNIT CHARGE SC SCH ×2 (08:21→12:28)
[2023-02-20] MEDS: GABAPENTIN 300 MG CAP PO SCH (08:27)
[2023-02-20] MEDS: LANTUS PER UNIT CHARGE SQ SCH (08:41)
[2023-02-20] MEDS ORDERED: ATORVASTATIN 40 MG TAB PO SCH (09:00)
[2023-02-20] MEDS ORDERED: buPROPion XL 300 MG TABCR PO SCH (09:00)
[2023-02-20] MEDS ORDERED: FLUoxetine HCL 20 MG CAP PO SCH ×2 (09:00)
[2023-02-20] MEDS ORDERED: PANTOprazole 40 MG in SYRINGE 0 ML IV SCH (09:00)
[2023-02-20] MEDS: SUCRALFATE 1 GM/10 ML UDC PO SCH ×2 (09:46→12:28)
--- NOTE | 2023-02-20 12:16 | Discharge Summary ---
Date of Service February 20, 2023 Admission HPI Per Admitting Provider Corbin is a 72 year old male with a PMH significant for type II DM, HTN, and recent Gangrenous acalculous cholecystitis S/P laparoscopic cholecystectomy with Dr. Moreno at [facility] on 12/30/22 with a chief complaint nausea and vomiting. In the ED vitals were noted to be stable. Labs were significant for a total bili of 1.6, Alk phos of 179, initial high sen trop of 60. Chest xary was negative for acute pulmonary findings but did show possible signs of ileus vs enteritis. We were asked to admit for further assessment and treatment due to his recent admission with similar symptoms. Prior to admission the patient was given a 500 mL NSS bolus and 4 mg IV morphine. At the time of the exam the patient was sitting in bed in no acute distress with is sitting bedside. He states that he had been in his normal state of health until 02/16. He had multiple Gin Cocktails earlier in the day, he does not think that he had too much to drink but his said that he was fairly intoxicated. Shortly after he finished his last drink he started to develop nausea and vomiting. He denies hematemesis or coffee ground emesis. Since 02/16 he has been unable to keep solids or liquids down. His nausea and vomiting are intermittent and not solely associated with eating or drinking. He has a long history of issues with nausea and vomiting. He states that he can go 6 months without having an episode then have them out of the blue. His symptoms were similar when he had his cholecystectomy and denies other previous abd surgeries. He has never been evaluated by GI and has never had an EGD or gastric emptying study. When asked, he states that he has not been taking his prescribed omeprazole for a few months, he is not sure why he was told to stop it previously. He has still been taking his famotidine BID. He was a 20 year smoker approximately 20 years ago and denies recreational drug use. Currently his symptoms are controlled after receiving the zofran. He is a full code and would want his to make medical decisions for him if he cannot make them himself. Please refer to Dr. Bonner's attestation for any changes to the treatment plan Principal Diagnosis Recurrent nausea and vomiting, elevated troponin Discharge Exam General-alert and oriented x3, no fevers, no chills HEENT-head atraumatic and normocephalic, pupils equal and reactive to light, extraocular muscles intact Neck-no lymphadenopathy or thyromegaly, trachea midline Chest-clear to auscultation percussion. No rales wheezing or rhonchi Cardiac-regular rate and rhythm, normal S1 and S2 Abdomen-normal bowel sounds, nontender, no hepatosplenomegaly Extremities-no cyanosis, clubbing, or edema Neuro-cranial nerves II through XII intact, motor and sensory function within normal limits, strength symmetrical , no focal deficits Psych-normal affect, normal mood Discharge Data Allergies Allergy/AdvReac Type Severity Reaction Status Date / Time lisinopril AdvReac Intermediate Cough Verified 02/08/23 08:07 ropinirole AdvReac Intermediate thoughts Verified 02/08/23 08:07 of gambling Consultations 02/19/23 15:03 ED Decision to Admit Stat Ordered Studies 02/19/23 15:43 CT abd pelvis IV con only Stat Hospital Course (1) Nausea & vomiting: Recurrent. Now resolved. He may have an element of gastroparesis causing the recurrent nausea and vomiting. He does admit to drinking too much prior to this admission which may have caused the nausea and vomiting. Nevertheless, he is agreeable to taking Reglan 5 mg on a as needed basis. He already takes omeprazole and Pepcid. This will continue. (2) Elevated troponin I level: Troponin levels are nontrending. No acute EKG changes. No chest pain. No evidence of acute coronary syndrome (3) Hypertension: Mildly hypertensive on admission. Now normalized. Continue current medical management (4) Diabetes mellitus, type 2: Metformin on hold. Will restart at discharge. ADA diet. Sliding scale coverage. (5) Depression with anxiety: Stable. Continue Fluoxetine (6) Dyslipidemia: Stable. Continue statin Plan Home today, February 20. He will use Reglan as needed Total Time Total Time Spent Total Time Spent (In Minutes): 40-minute Discharge Plan Discharge Items Patient Disposition: Home - Self-Care Reason For Visit: NAUSEA/VOMITING Discharge Diagnosis: Recurrent nausea and vomiting. Troponin elevation Activity: Resume your previous activity Non-emergency contact: Primary Care Provider Call non-emergency contact if: you have any medication questions Follow-up/Referrals: Jaime Lyle MD [Primary Care Provider] - Diet: Carb Consistent or DM2 and Heart Healthy Addtl Attending Provider Instructions: Take Reglan 5 mg every 6 hours as needed for nausea Pending Studies at Discharge: No Stand-Alone Forms: My [facility] [employer], Smoking Cessation Medications and DC Order Prescriptions: New metoclopramide HCl 5 mg tablet 5 mg PO Q6H PRN (Reason: nausea and vomiting) Qty: 30 0RF Continued fluoxetine [Prozac] 20 mg capsule 20 mg PO QAM Rx Instructions: TOTAL DOSE 60 MG--TAKES WITH 40 MG CAP. metformin 500 mg tablet 1,000 mg PO QAM Qty: 180 3RF atorvastatin 80 mg tablet 80 mg PO QAM Qty: 90 1RF insulin glargine [Lantus Solostar U-100 Insulin] 100 unit/mL (3 mL) insulin pen 43 unit subcut HS Qty: 15 3RF (DME) OneTouch Verio test strips Strip See Rx Instructions .ROUTE .MEDSUPPLY Qty: 100 7RF Rx Instructions: As directed Test 3x/day E11.9 losartan 100 mg tablet 100 mg PO DAILY Qty: 90 3RF famotidine 20 mg tablet 20 mg PO BID Qty: 60 0RF bupropion HCl 300 mg tablet extended release 24 hr 300 mg PO QAM Qty: 90 3RF (DME) pen needle, diabetic [BD Ultra-Fine Yojana Pen Needle] 32 gauge x 5/32" needle See Dose Instructions .ROUTE .MEDSUPPLY Qty: 100 3RF Dose Instruction: As directed Rx Instructions: As directed hydrochlorothiazide 25 mg tablet 25 mg PO DAILY Qty: 90 1RF fluoxetine 40 mg capsule 40 mg PO QAM Rx Instructions: TOTAL DOSE 60 MG--TAKES WITH 20 MG CAP. gabapentin 300 mg capsule 300 mg PO TID Discharge Orders: Discharge Order (Routine); Ordered 02/20/23 Ordered By: Asher Sharma Admission Data Admit Date/Time: 02/19/23 16:05 Attending Provider: Asher Sharma Admit Provider: Winston Bonner Primary Care Provider: Jaime Lyle Other Providers: Winston Bonner Coding Level of Care Code 80948 INP/OBS DISCH >30 MIN Diagnoses Nausea & vomiting R11.2 Vomiting type: unspecified Elevated troponin I level R77.8 Hypertension I10 Diabetes mellitus, type 2 E11.9 Depression with anxiety F41.8 Dyslipidemia E78.5
--- NOTE | 2023-02-20 14:01 | Electrocardiogram Report ---
Test Reason : Blood Pressure : / mmHG Vent. Rate : 090 BPM Atrial Rate : 090 BPM P-R Int : 166 ms QRS Dur : 092 ms QT Int : 388 ms P-R-T Axes : 029 001 053 degrees QTc Int : 474 ms Poor data quality, interpretation may be adversely affected Normal sinus rhythm Nonspecific T wave abnormality Abnormal ECG When compared with ECG of 28-SEP-2021 14:14, Nonspecific T wave abnormality now evident in Anterior leads Confirmed by Bigg Henriquez ([id number]) on 02/20/2023 2:00:42 PM Referred By: REFERRED SELF Confirmed By:Bigg Henriquez
--- NOTE | 2023-02-20 14:25 | Electrocardiogram Report ---
Test Reason : Blood Pressure : / mmHG Vent. Rate : 072 BPM Atrial Rate : 072 BPM P-R Int : 162 ms QRS Dur : 094 ms QT Int : 408 ms P-R-T Axes : 062 012 051 degrees QTc Int : 446 ms Normal sinus rhythm Nonspecific ST and T wave abnormality Abnormal ECG When compared with ECG of 19-FEB-2023 13:23, (unconfirmed) No significant change was found Confirmed by Bigg Henriquez ([id number]) on 02/20/2023 2:25:16 PM Referred By: REFERRED SELF Confirmed By:iBgg Henriquez
== END 2023-02-20 13:35 | disposition home or self-care (01) ==
LOC: 2N 12:05 → ED 12:05 → SUATTDRO 16:05 → 2N 18:17
DX: Z79.4 Long term (current) use of insulin; Z79.899 Other long term (current) drug therapy; I10 Essential (primary) hypertension; Z87.891 Personal history of nicotine dependence; R77.8 Other specified abnormalities of plasma proteins; Z79.84 Long term (current) use of oral hypoglycemic drugs; R11.2 Nausea with vomiting, unspecified; E78.5 Hyperlipidemia, unspecified; E11.9 Type 2 diabetes mellitus without complications